=== PATIENT | female | born 1950 | race Caucasian/White ===

== ENCOUNTER 2023-01-21 11:51 | Outpatient (REF) | payer OTHER, SELFPAY ==
[2023-01-21 16:26] LABS: Alanine Aminotransferase 19 U/L (0-31); Albumin Level 4.9 g/dL (3.5-5.0); Alkaline Phosphatase 105 U/L (39-117); Amylase 64 U/L (28-100); Aspartate Amino Transferase 27 U/L (5-31); Bilirubin Direct 0.2 mg/dL (0.0-0.5); Bilirubin Total 0.4 mg/dL (0.0-1.0); Lipase 43 U/L (8-78); Total Protein 8.7 g/dL (6.5-8.0)
[2023-01-22 07:30] LABS: HBS Num1 0.11 mIU/mL (0-7.99); HBc Num1 0.09 S/CO (0.00-0.79); HBsAGNum1 0.35 S/CO (0.00-0.99); Hepatitis A Antibody IgM 0.19 Index (0-0.79); Hepatitis B Core Antibody Nonreactive (Nonreactive); Hepatitis B Surface Antigen Negative (Negative); ~HepC Num1 0.04 S/CO (0.00-0.79); ~Hepatitis A Antibody IgM Nonreactive (Nonreactive); ~Hepatitis B Surface Antibody NONREACTIVE (Nonreactive); ~Hepatitis C Antibody Nonreactive (Nonreactive)
== END 2023-01-21 11:52 | disposition home or self-care (01) ==
LOC: HO.HHCL 11:51
PROVIDERS: Visit Provider Registered Nurse
DX: R10.11 Right upper quadrant pain (principal)
CPT/HCPCS: 36415; 80076; 82150; 83690; 86704; 86706; 86709; 86803; 87340

== ENCOUNTER 2023-02-04 10:24 | Outpatient (REF) | payer OTHER, SELFPAY ==
--- NOTE | ~2023-02-04 | MM_ITS ---
EXAMINATION: BONE DENSITOMETRY CLINICAL INDICATION: Abnormal findings on diagnostic imaging of other parts of musculoskeletal system. COMPARISON: This is the patient's baseline examination. TECHNIQUE: Using a Zentric DXA System (software version: 13.1) manufactured by [employer], dual-energy x-ray absorptiometry was performed of the lumbar spine and left hip. The images are of good technical quality. Summary results are attached. FINDINGS: AP SPINE L1-L2 (excluding L3 and L4): The data of L1-L4 has been changed to exclude the L3 and L4 vertebral bodies, because degenerative sclerosis at these levels may cause overestimation of lumbar spine density. BMD 0.516 g/cm2, Z-score -3.1, T-score -5.4, osteoporosis. LEFT FEMUR, NECK: BMD 0.515 g/cm2, Z-score -1.6, T-score -3.8, osteoporosis. LEFT FEMUR, TOTAL: BMD 0.546 g/cm2, Z-score -1.6, T-score -3.7, osteoporosis. IDENTIFIED RISK FACTORS: History of adult fracture. Osteoporosis. Height loss. Low body weight. Low calcium intake. Menopause. HISTORY OF FRACTURE: Other. MEDICATIONS: Vitamin D. MM/XR DEXA axial skeleton IMPRESSION: 1. DIAGNOSIS: Osteoporosis based on the lowest T-score value of -5.4 in the lumbar spine applying World Health Organization criteria. 2. 10-YEAR FRACTURE RISK PREDICTION, FRAX: According to the guidelines, FRAX calculation should only be performed on patients in the osteopenia bone density category.?Therefore, FRAX was not performed on this patient.? 3. Treatment Recommendations: NOF guidelines recommend consideration for treatment in postmenopausal women and men age 50 and older presenting with the following: -A hip or vertebral (clinical or morphometric) fracture. -T-score less than or equal to -2.5 at the femoral neck or spine after appropriate evaluation to exclude secondary causes. -Low bone mass at the hip or spine and a 10-year fracture probability by FRAX of greater than or equal to 3% for hip fracture or greater than or equal to 20% for major osteoporotic fracture based on the [place] adapted WHO algorithm. 4. Other Recommendations: All treatment decisions require clinical judgment and consideration of individual patient factors, including patient preferences, comorbidities, previous drug use, risk factors not captured in the FRAX model (e.g. frailty, falls, vitamin D deficiency, increased bone turnover, interval significant decline in bone density) and possible under or overestimation of fracture risk by FRAX. Additional medical evaluation for secondary cause of low bone mineral density may be appropriate. FUTURE SCAN RECOMMENDATION: People with diagnosed cases of osteoporosis or at high risk for fracture should have regular bone mineral density tests. For patients eligible for Medicare, routine testing is allowed once every 2 years. The testing frequency can be increased to one year for patients who have rapidly progressing disease, those who are receiving or discontinuing medical therapy to restore bone mass, or have additional risk factors.
== END 2023-02-04 10:25 | disposition home or self-care (01) ==
LOC: HO.MAMMO 10:24
PROVIDERS: PCP Nurse Practitioner Family; Visit Provider Nurse Practitioner Family
DX: Z13.820 Encounter for screening for osteoporosis (principal); R93.7 Abnormal findings on diagnostic imaging of other parts of musculoskeletal system; Z78.0 Asymptomatic menopausal state
CPT/HCPCS: 77080

== ENCOUNTER 2023-02-19 08:21 | Outpatient (REF) | payer OTHER, SELFPAY ==
--- NOTE | ~2023-02-19 | US_ITS ---
EXAMINATION: US ABDOMEN COMPLETE CLINICAL INFORMATION: Right upper quadrant pain. COMPARISON: None available. TECHNIQUE: Real-time imaging of the abdominal viscera. FINDINGS: PANCREAS: Normal. ABDOMINAL AORTA: The proximal, mid, and distal segments are normal in caliber. INFERIOR VENA CAVA: Visualized portions are normal. LIVER: Lobulated appearance with linear echogenicity posterior lateral aspect of the right hepatic lobe. Alignment Parenchymal echogenicity is normal. No focal hepatic lesion. There is no intrahepatic biliary duct dilatation seen. GALLBLADDER: Gallbladder debris in decubitus position. The gallbladder is physiologically distended without evidence of stones, polyps, wall thickening or pericholecystic fluid. COMMON BILE DUCT: Normal in caliber measuring 0.53 cm in diameter. RIGHT KIDNEY: Normal. No hydronephrosis. No renal calculi or focal parenchymal lesions. The kidney measures 9.7 cm in maximum dimension. LEFT KIDNEY: Normal. No hydronephrosis. No renal calculi or focal parenchymal lesions. The kidney measures 9.5 cm in maximum dimension. SPLEEN: Normal. The spleen measures 8.3 cm in maximum dimension. FREE FLUID: None. US/US abdomen complete IMPRESSION: Lobulated right hepatic lobe contour with associated linear echogenicity. Consider cross-sectional imaging. Gallbladder debris without cholelithiasis.
== END 2023-02-19 08:22 | disposition home or self-care (01) ==
LOC: HO.US 08:21
PROVIDERS: PCP Nurse Practitioner Family; Visit Provider Registered Nurse
DX: R10.11 Right upper quadrant pain (principal)
CPT/HCPCS: 76700

== ENCOUNTER 2023-04-17 10:31 | Outpatient (REF) | payer OTHER, SELFPAY ==
[2023-04-17 11:20] LABS: MANUAL DIFF FLAG NO
[2023-04-17 11:52] LABS: Basophils Absolute Auto 0.1 X10*3/uL (0.0-0.2); Basophils Percent Auto 0.7 % (0-2); Eosinophils Absolute Auto 0.4 X10*3/uL (0.0-0.4); Eosinophils Percent Auto 5.5 % (0-4); Hematocrit 40.3 % (37.0-47.0); Hemoglobin 13.2 g/dl (12.0-16.0); Imm Gran Abs Auto 0.02 X10*3/uL (0.00-0.03); Imm Gran Pct Auto 0.3 % (0.0-0.4); Lymphocytes Absolute Auto 2.2 X10*3/uL (1.2-4.9); Lymphocytes Percent Auto 30.3 % (20-40); Mean Corpuscular HGB Conc 32.8 g/dl (31.0-35.0); Mean Corpuscular Volume 94.6 fL (80.0-98.0); Mean Platelet Volume 10.6 fL (9.4-12.3); Monocytes Absolute Auto 0.7 X10*3/uL (0.1-1.2); Neutrophils Absolute Auto 3.9 x10*3/uL (2.0-8.3); Neutrophils Percent Auto 54.2 % (45-73); Platelet Count 294 X10*3/uL (160-400); Red Blood Count 4.26 X10*6/uL (4.20-5.50); Red Cell Distribution Width 12.8 % (11.0-16.0); White Blood Count 7.2 X10*3/uL (4.8-10.8)
[2023-04-17 12:29] LABS: Alanine Aminotransferase 17 U/L (0-31); Albumin Level 4.4 g/dL (3.5-5.0); Alkaline Phosphatase 113 U/L (39-117); Anion Gap 15 (12-20); Aspartate Amino Transferase 23 U/L (5-31); Bilirubin Total 0.4 mg/dL (0.0-1.0); Blood Urea Nitrogen 11 mg/dL (9-16); Carbon Dioxide 28 mmol/L (22-29); Chloride 103 mmol/L (96-108); Cholesterol 209 mg/dL (<200); Estimated Glomerular Filt Rate > 60; Glucose Random 81 mg/dL (60-115); HDL Cholesterol 81 mg/dL (>40); LDL Cholesterol Calculated 110 mg/dL (<100); Potassium 3.6 mmol/L (3.3-5.1); Sodium 142 mmol/L (135-145); Total Protein 7.8 g/dL (6.5-8.0); Triglycerides 92 mg/dL (<150)
[2023-04-17 12:31] LABS: Alanine Aminotransferase 17 U/L (0-31); Albumin Level 4.5 g/dL (3.5-5.0); Alkaline Phosphatase 114 U/L (39-117); Aspartate Amino Transferase 23 U/L (5-31); Bilirubin Direct 0.2 mg/dL (0.0-0.5); Bilirubin Total 0.4 mg/dL (0.0-1.0); Total Protein 7.8 g/dL (6.5-8.0)
== END 2023-04-17 10:32 | disposition home or self-care (01) ==
LOC: HO.HHCL 10:31
PROVIDERS: Visit Provider Registered Nurse
DX: Z00.00 Encounter for general adult medical examination without abnormal findings (principal); R77.9 Abnormality of plasma protein, unspecified
CPT/HCPCS: 36415; 80053; 80061; 80076; 82248; 85025

== ENCOUNTER 2023-07-17 15:29 | Outpatient (REF) | payer OTHER, SELFPAY ==
[2023-07-17 17:06] LABS: Vitamin D 25-OH Total 69.3 ng/mL (>30)
== END 2023-07-17 15:30 | disposition home or self-care (01) ==
LOC: HO.HHCL 15:29
PROVIDERS: Visit Provider Nurse Practitioner Family
DX: E55.9 Vitamin D deficiency, unspecified (principal)
CPT/HCPCS: 36415; 82306

== ENCOUNTER 2023-08-31 08:49 | Outpatient (REF) | payer OTHER, SELFPAY ==
--- NOTE | ~2023-08-31 | US_ITS ---
EXAMINATION: US RETROPERITONEAL LIMITED (AORTA) CLINICAL INFORMATION: Remote history of smoking. Recent diagnosis of vascular disease. Hank Danlos. COMPARISON: Ultrasound abdomen complete 02/19/2023. TECHNIQUE: Aguero-scale, color Doppler and spectral Doppler evaluation of the abdominal aorta. FINDINGS: Atherosclerotic abdominal aorta. The measurements of the aorta in maximum AP and transverse dimensions respectively are as follows: Proximal: 2.0 x 2.0 cm. Mid: 1.6 x 1.9 cm. Distal: 1.6 x 1.8 cm. PSV: 65.4 cm/s. The measurements of the common iliac arteries in maximum AP and TRV dimensions are as follows: Right: AP: 1.0 cm. TRV: 0.9 cm. Left: AP: 1.0 cm. TRV: 1.0 cm. US/US aorta IMPRESSION: Negative for abdominal aortic aneurysm.
== END 2023-08-31 08:50 | disposition home or self-care (01) ==
LOC: HO.US 08:49
PROVIDERS: PCP Nurse Practitioner Family; Visit Provider Nurse Practitioner Family
DX: Q79.63 Vascular Ehlers-Danlos syndrome (principal)
CPT/HCPCS: 76775

== ENCOUNTER 2023-10-17 10:36 | Outpatient (REF) | payer OTHER, SELFPAY ==
[2023-10-17 10:51] LABS: MANUAL DIFF FLAG NO
[2023-10-17 11:15] LABS: Basophils Absolute Auto 0.1 X10*3/uL (0.0-0.2); Eosinophils Absolute Auto 0.4 X10*3/uL (0.0-0.4); Eosinophils Percent Auto 7.2 % (0-4); Hematocrit 38.1 % (37.0-47.0); Hemoglobin 13.2 g/dl (12.0-16.0); Imm Gran Abs Auto 0.01 X10*3/uL (0.00-0.03); Imm Gran Pct Auto 0.2 % (0.0-0.4); Lymphocytes Absolute Auto 1.5 X10*3/uL (1.2-4.9); Lymphocytes Percent Auto 30.4 % (20-40); Mean Corpuscular HGB Conc 34.6 g/dl (31.0-35.0); Mean Corpuscular Hemoglobin 32.7 pg (27.0-33.0); Mean Corpuscular Volume 94.3 fL (80.0-98.0); Mean Platelet Volume 10.5 fL (9.4-12.3); Monocytes Absolute Auto 0.5 X10*3/uL (0.1-1.2); Monocytes Percent Auto 9.5 % (2-11); Neutrophils Absolute Auto 2.6 x10*3/uL (2.0-8.3); Neutrophils Percent Auto 51.7 % (45-73); Platelet Count 234 X10*3/uL (160-400); Red Blood Count 4.04 X10*6/uL (4.20-5.50); Red Cell Distribution Width 12.7 % (11.0-16.0)
[2023-10-17 11:56] LABS: Alanine Aminotransferase 16 U/L (0-31); Albumin Level 4.5 g/dL (3.5-5.0); Alkaline Phosphatase 101 U/L (39-117); Amylase 80 U/L (28-100); Anion Gap 13 (12-20); Aspartate Amino Transferase 25 U/L (5-31); Bilirubin Total 0.4 mg/dL (0.0-1.0); Blood Urea Nitrogen 8 mg/dL (9-16); Calcium 10.4 mg/dL (8.4-10.2); Carbon Dioxide 28 mmol/L (22-29); Chloride 105 mmol/L (96-108); Estimated Glomerular Filt Rate > 60; Glucose Random 98 mg/dL (60-115); Lipase 46 U/L (8-78); Potassium 3.8 mmol/L (3.3-5.1); Sodium 142 mmol/L (135-145); Total Protein 7.6 g/dL (6.5-8.0)
== END 2023-10-17 10:37 | disposition home or self-care (01) ==
LOC: HO.LAB 10:36
PROVIDERS: Visit Provider Nurse Practitioner Family
DX: R10.10 Upper abdominal pain, unspecified (principal)
CPT/HCPCS: 36415; 80053; 82150; 83690; 85025

== ENCOUNTER 2023-10-21 10:38 | Outpatient (REF) | payer OTHER, SELFPAY ==
[2023-10-21 12:11] LABS: T4 Thyroxine 4.7 ug/dL (4.5-12.0)
[2023-10-21 12:22] LABS: Folate 10.3 ng/mL (> or = 4.0); Vitamin B12 585 pg/mL (200-900)
[2023-10-22 08:12] LABS: Triiodothyronine T3 Total 90 ng/dL (76-181)
== END 2023-10-21 10:39 | disposition home or self-care (01) ==
LOC: HO.LAB 10:38
PROVIDERS: PCP Nurse Practitioner Family; Visit Provider Nurse Practitioner Family
DX: E03.9 Hypothyroidism, unspecified (principal); E55.9 Vitamin D deficiency, unspecified
CPT/HCPCS: 36415; 82306; 82607; 82746; 84436; 84443; 84480

== ENCOUNTER 2024-05-24 09:29 | Outpatient (AMB) | payer OTHER, SELFPAY ==
--- NOTE | 2024-05-24 09:30 | A.OFFVIS_ITS ---
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 Extremely vague history and difficult to put this all together. She states that she has had issues for almost 5-6 decades. 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 Apparently also went to a [facility] in [place], but we do not have records. Plethora of symptoms. She may feel like her heart racing at times but it has been going on since she has been a teenager. Some days worse in the others. She also gets some random pains in the chest at different times again longstanding. PCP notes describes vertigo type symptoms but she states that she randomly feels dizzy and that can happen any time including while stationary. Apparently even things like POTS has been brought up but not worked up. Overall, nonspecific symptomatology of different types over a prolonged period. No documented coronary disease or myocardial infarction or cardiomyopathy. [facility] Medical History (Updated 05/24/24 @ 12:14 by Reji Barahona MD) Orthostatic hypotension Osteoporosis Scoliosis GERD (gastroesophageal reflux disease) Depressive disorder Asthma Family History (Updated 05/24/24 @ 09:42 by Linnette Kim CMA) Mother Ovarian cancer Father Alcoholism Brother Prostate cancer Maternal Grandfather Heart attack Social History (Updated 05/24/24 @ 09:43 by Linnette Kim CMA) Alcohol intake: former Patient Tobacco Use Status: Former Tobacco user Review of Systems Const Denies chills, Denies daytime sleepiness, Denies fatigue, Denies fever(s), Denies poor appetite, Denies snoring, Denies stops breathing during sleep, Denies weakness, Denies weight gain and Denies weight loss Eyes Denies loss of vision ENT Denies dizziness and Denies hearing loss Card Reports chest pain, Reports irregular heart rhythm, Denies claudication, Denies leg edema, Denies lightheadedness, Denies palpitations, Reports dyspnea on exertion and Denies orthopnea Resp Denies cough, Denies excessive phlegm production, Reports dyspnea on exertion, Denies snoring and Denies wheezing GI Denies abdominal pain, Denies hematochezia, Denies change in bowel habits, Denies nausea and Denies vomiting Denies urinary frequency and Denies dysuria Musc Denies arthralgias, Denies muscle weakness, Denies numbness and Denies other Skin/Breast Denies nail changes and Denies rash Neuro Denies Abnormal speech present, Denies dizziness, Denies loss of vision, Denies memory loss, Denies numbness and Denies weakness Psych Denies depression and Denies memory loss Endo Denies fatigue and Denies palpitations Arturo/Lymph Denies easy bruising Aller/Immun Denies wheezing Physical Exam Vital Signs: Last Vital Signs Pulse 68 05/24/24 09:38 BP 124/64 05/24/24 09:38 BMI result Body Mass Index 19.5 Const General: comfortable and no acute distress Orientation/consciousness: patient oriented x3 HEENT Other: Unremarkable Head: Yes normal to inspection Neck Neck: Yes normal visual inspection Chest Chest palpation & inspection: normal inspection of the chest Resp Auscultation: clear to auscultation bilaterally Cardio Palpation: normal PMI Heart sounds: S1 normal heart sound present, S2 normal heart sound present, no gallops, no murmurs and no rubs GI Palpation (GI): Soft to palpation Back/Spine/Pelvis Other: unremarkable Skin General skin exam: no rashes or lesions noted Neuro General: patient oriented x3 Speech: No Abnormal speech present Extrem General: Yes normal to inspection Psych Mental Status: mental status grossly normal Office Procedures EKG Details: EKG with underlying sinus rhythm at 68/Min; sinus arrhythmias; possible old septal infarct but more likely from body habitus; [place]. [id number], Complete Assessment & Plan Assessment & Plan (1) Abnormal EKG: Code(s): R94.31 - Abnormal electrocardiogram [ECG] [EKG] Category: Medical (2) Dizziness: Code(s): R42 - Dizziness and giddiness Category: Medical Plan EKG as above with possible septal infarct but could be very well related to body habitus. Vascular ultrasound shows no evidence of abdominal aortic aneurysm. We discussed about all her symptoms as mentioned above and overall doubt if there is any unifying cardiac diagnosis. With regard to the question of septal infarct on the EKG, we will get an echocardiogram for wall motion abnormality in the LAD territory and a stress test. With regard to the question of dizziness/presyncope/POTS?, we will get a tilt- table test. She can return for follow-up after these are completed. Orders: Orders CA stress test Today R07.2 - Precordial pain, R94.31 - Abnormal electrocardiogram [ECG] [EKG] ECG Tilt Table Test Today R42 - Dizziness and giddiness NM cardiolite stress test Today R07.2 - Precordial pain, R94.31 - Abnormal electrocardiogram [ECG] [EKG] CA echo transthoracic complete Today R94.31 - Abnormal electrocardiogram [ECG] [EKG] Coding Level of Care Code New Pt Level 4 (01927) Complex EM visit Add On G2211 Diagnoses Abnormal EKG R94.31 Dizziness R42 CPT Codes EKG - CPT: 86657-[id number], Complete ([id number])
[2024-05-24 09:38] VITALS: BP 124/64; PULSE 68; BMI 19.5
--- OUTSIDE RECORDS SUMMARY | 2024-05-24 10:34 | XMS_ITS | Clinical Summary ---
Author Organization [employer] Address [address] [place] [address] Care Team Providers Care Motor Vehicle Assembler Name Role Phone Kim Mcmullen NP Primary Care Provider [phone] Allergies Active Allergy Reactions Criticality Noted Date Comments Honey Bee Venom Hives 08/15/2009 Food Dermatitis,Diarrhea, Di zziness,Drowsiness,Hea dache,Hives,Insomnia,I tching,Nausea,Palpitat ions,Runny nose,Shortness of breath,Tinnitus,Wheezi ng High 04/22/2023 Penicillins Itching,Swelling,Hives Medium 05/12/2006 Pt recalls having swelling and itching at the site of injection. Yellow Jacket Venom Hives 08/15/2009 Medications EPINEPHrine (Epipen) 0.3 MG/0.3ML injection syringe INJECT DIRECTED NEEDED FOR ANAPHYLAXIS THEN CALL 911 2 Active levothyroxine (Synthroid, Levoxyl) 25 MCG tablet TAKE 1 TABLET BY MOUTH TWICE DAILY 3 Active liothyronine (Cytomel) 5 MCG tablet TAKE 1 TABLET BY MOUTH THREE TIMES DAILY 3 Active estradiol (Estrace) 0.1 MG/GM vaginal cream 4 Active Blood Pressure Monitoring (Blood Pressure Cuff) miscIndications: Dysautonomia (CMS/HCC),Orthos tatic hypotension 1 kit Once per day. 1 each 4 Active Active Problems Problem Noted Date Diagnosed Date TMJ (temporomandibular joint disorder) 5 Assessment & Plan (05/14/2024 1:41 PM EST): Pt in specialty care for this, Requesting referral to PT Hearing difficulty of both ears 01/19/2024 Assessment & Plan (02/07/2024 11:46 AM EST): Referral to audiology Dysautonomia 12/18/2023 Assessment & Plan (02/07/2024 11:45 AM EST): Continue increased salt intake with adequate hydration Monitor bp Compression stockings ordered Assessment & Plan (01/17/2024 11:31 AM EDT): Pt with hank danlos, and associated vertiginous symptoms, will refer to preferred cardiology team, encouraged increase salt, hydration and compression stockings Orthostatic hypotension 12/18/2023 Metatarsalgia of both feet 12/18/2023 Absence of bladder continence 12/18/2023 Dizziness 12/17/2023 Combined hyperlipidemia 12/17/2023 Atherosclerosis 12/17/2023 Assessment & Plan (12/17/2023 3:03 PM EDT): Ultrasound demonstrated atherosclerosis, reviewed statin as therapeutic options, pt contemplative as cholesterol is quite stable Hank-Danlos, vascular type 07/31/2023 Assessment & Plan (12/17/2023 2:59 PM EDT): Reviewed treatment options of increasing oral salt of prescribed medications to increase bp, encouraged compression stocking Assessment & Plan (08/02/2023 9:22 PM EDT): Encouraged pt to discuss with neurologist, ordered AAA screening Pain of upper abdomen 07/31/2023 Assessment & Plan (08/02/2023 9:23 PM EDT): Episode of severe pain which has since resolved, reviewed limitations to work up when asymptomatic, has upcoming GI appointment, will start with blood work Previous work up reviewed Encounter for screening for malignant neoplasm o f colon 07/31/2023 Assessment & Plan (08/02/2023 9:21 PM EDT): Ifobt ordered Urticaria 04/27/2023 Assessment & Plan (04/27/2023 6:51 PM EST): In care with allergy, requesting derm referral denies acute or evolving lesions Allergic rhinitis 11/21/2022 Overview (11/21/2022): dust, mites, pollen. all seasons, worse in fall and sometimes summer Insomnia 11/21/2022 Overview (11/21/2022): Last Assessment & Plan: Discussed role of melatonin in maintaining circadian rhythm, recommend taking 2- 3 hours prior to bedtime. Urethral caruncle 11/27/2020 Equinus deformity of both feet 10/02/2020 Incontinence of feces with fecal urgency 021 Overview (11/21/2022): Last Assessment & Plan: Agree that pelvic floor PT is a reasonable intervention to try, especially in light of unrepaired obstetric laceration which could have left her with some very weak pelvic musculature. Interstitial cystitis (chronic) without hematuri a 02/13/2020 Juvenile idiopathic scoliosis of thoracolumbar r egion 12/15/2019 Dorsalgia of lumbosacral region 10/03/2019 Trochanteric bursitis of left hip 03/05/2011 Overview (11/21/2022): 02/2011- refer ortho, given steroid injection to left hip Hearing loss 12/10/2010 Assessment & Plan (04/27/2023 6:52 PM EST): Reports chronic issue, hx was advised would benefit from hearing aides, requesting referral Toe pain, right 06/18/2010 Overview (04/06/2024): - refer podiatry: hammertoe/exostosis right 2nd digit, tibial neuritis, right foot Vasovagal near-syncope 04/25/2008 Overview (11/21/2022): Both ears since eage 30s Frozen shoulder 04/25/2008 Overview (11/21/2022): 09/2006- Left sided, completed PT Osteoporosis 06/23/2006 Overview (11/21/2022): Eval by rheumatology 05/28-osteoporosis, BMD improved compared to 2006 Eval by rheumatology 05/28-osteoporosis, BMD improved compared to 2006 Asthma 05/19/2006 Overview (11/21/2022): diet-controlled. URIs are triggers but she prefers no inhaler b/c of palpitations Last Assessment & Plan: Offered levalbuterol, which is generally better-tolerated than albuterol with regards to palpitations. As this often requires a PA I suggest getting a script now even though she does not need it when she is well. She declines. She is also due for pneumovax and defers this because she has big gardening plans and doesn't want to have a sore arm. Depressive disorder, not elsewhere classified Overview (11/21/2022): Controlled with talk therapy and exercise - walking twice daily for 40 mind at at time. No SI/HI. Gastroesophageal reflux disease 05/19/2006 Overview (11/21/2022): 02/02/[address] Ashley 04/28/[address] Ashley-Plan to moniter symptoms and watch diet Pt declines dilatation or esophageal study at this time Irritable bowel syndrome 05/19/2006 Overview (11/21/2022): Colonoscopy done 07/2009- stable, controlled w/ healthy diet, vegan. Colonoscopy done 2019 Follows a healthy diet, vegan. Mitral valve disease 05/19/2006 Overview (11/21/2022): Echocardiogram done 05/05/05 showed mild MR and TR Pt informed of need for antibiotic prophylaxsis Echocardiogram done 05/05/05 showed mild MR and TR Pt informed of need for antibiotic prophylaxsis Anxiety and depression 05/19/2006 Overview (04/06/2024): Controlled with talk therapy and exercise - walking twice daily for 40 mind at at time. No SI/HI. Resolved Problems Problem Noted Date Diagnosed Date Resolved Date Toe pain, right 06/18/2010 01/21/2023 Overview (11/21/2022): - refer podiatry: hammertoe/exostosis right 2nd digit, tibial neuritis, right foot Screening for malignant neoplasm of cervix 08/15/2009 01/21/2023 Overview (11/21/2022): 07/2009- hpv wnl, pap unsatisfactory evluatino b/c too few squamous cells; repeat in 1 yr Encounters Date Type Department Care Team Description 04/18/2024 3:45 PM EST Office Visit [facility] [address] [place] [address] Kim Mcmullen NP TMJ (temporomandibular joint disorder) (Primary Dx) 04/18/2024 Travel 04/14/2024 12:00 PM EST Office Visit [facility] [address] [place] [address] Tita Owens LLD Encounter for dental examination (Primary Dx) 04/06/2024 Telephone [facility] [address] [place] [address] Joanna Oneill MA Chart Prep 03/02/2024 Travel 03/02/2024 Telephone [facility] [address] [place] [address] Kim Mcmullen NP Appointment Request 03/02/2024 Telephone [facility] [address] [place] [address] Kim Mcmullen NP Nurse Triage from Last 3 Months Immunizations Name Administration Dates Next Due Pfizer Covid-19 Vaccine 12+ 04/07/2020, 1 Pneumococcal Conjugate PCV 13 11/17/2019 TD (adult), 2 Lf tetanus tox oid, preservative free, adsorbed 11/17/2019 Td (adult), unspecified 03/16/2010 Family History Medical History Relation Name Comments Prostate cancer Brother Heart attack Maternal Grandfather Ovarian cancer Mother Stroke Paternal Grandfather Relation Name Status Comments Brother Maternal Grandfather Mother Paternal Grandfather Social History Tobacco Use Types Packs/Day Years Used Date Smoking Tobacco: Former Cigarettes 1 20 Passive Smoke Exposure: Never Smokeless Tobacco: Never Tobacco Cessation:Counseling Given: Not Answered Alcohol Use Standard Drinks/Week Comments Not Currently 0 (1 standard drink = 0.6 oz pur e alcohol) 40 years Depression Answer Date Recorded Patient Health Questionnaire-9 Score 0 12/17/2022 Housing Stability Answer Date Recorded What is your housing situation today? I have eddie leyva 12/18/[address] you li ve. Do you have problems with any of the following? None of the above 12/18/2023 Food Insecurity Answer Date Recorded Within the past 12 months, y ou worried that your food would run out before you got money to buy more: Never True 12/18/2023 Within the past 12 months,th e food you bought just didn't last and you didn't have enough money to get more: Never True Transportation Answer Date Recorded In the past 12 months, has l ack of transportation kept you from medical appts, meetings, work or from getting things needed for daily living? No 12/18/2023 Utilities Answer Date Recorded In the past 12 months, has t he electric, gas, oil or water company threatened to shut off services in your home? No 12/18/2023 Depression Answer Date Recorded Patient Health Questionnaire-2 Score 0 12/17/2022 Internet Access Answer Date Recorded Internet Access Q1 Yes 12/18/2023 Internet Access Q2 Not on file 12/18/2023 Comments Unknown Sex and Gender Information Value Date Recorded Sex Assigned at Female 11/14/2022 9:44 AM EDT Legal Sex Female 8:38 PM EST Gender Identity Female 01/31/2022 8:38 PM EST Sexual Orientation Choose not to disclose 2022 9:44 AM EDT Last Filed Vital Signs Vital Sign Reading Time Taken Comments Blood Pressure 119/74 04/18/2024 3:47 PM EST Pulse 73 04/18/2024 3:47 PM EST Temperature 35.9 ??C (96.7 ??F) 04/18/2024 3:47 PM ES T Respiratory Rate 16 04/18/2024 3:47 PM EST Oxygen Saturation 97% 01/19/2024 3:26 PM EDT Inhaled Oxygen Concentration - - Weight 46.1 kg (101 lb 9.6 oz) 04/18/2024 3:47 P M EST Height 154.9 cm (5' 1 ) 04/18/2024 3:47 PM EST Body Mass Index 19.2 04/18/2024 3:47 PM EST Plan of Treatment Upcoming Encounters Date Type Department Care Team (Late st Contact Info) Description 10/18/2024 11:00 AM EDT Office Visit [place] [facility] Dental [address] [place] [address] Tita Owens LLD [address] [place] [address] Health Maintenance Due Date Last Done Comments CT Colonography 1950 Colonoscopy 1950 Colorectal Cancer Screening 1950 FIT DNA/Cologuard 1950 FIT 1950 FOBT 1950 Sigmoidoscopy 1950 Mammogram 1990 Zoster Vaccines (1 of 2) 2000 RSV Patients and Patients Aged 60 years or older (1 - Risk 60-74 years 1-dose series) 2010 DTaP/Tdap/Td Vaccines (1 - Tdap) 11/18/2019 11/17/2019, 03/16/2010 Pneumococcal Vaccine: 50+ Years (2 of 2 - PPSV23) 01/12/2020 11/17/2019 COVID-19 Vaccine (4 - season) 2023 05/05/2020, 04/07/2020, 03/23/2020 Influenza Vaccine (#1) 2023 Depression Screening 12/18/2023 12/17/2022, 12/18/19 Dental Prophylaxis 01/10/2024 07/10/2023, 0 11/27/2022, 03/06/2021, Additional history exists Dental X-Ray: Full Mouth 02/01/2024 021, 11/22/2020, 06/26/2017 Dental Oral Exam 10/13/2024 04/14/2024, , 11/27/2022, Additional history exists Alcohol/Substance Use Screening 12/17/2024 12/18/2023 SDOH Screening 12/17/2024 12/18/2023 Dental X-Ray: Bitewings 04/15/2025 04/14/19, 11/27/2022, 11/22/2020, Additional history exists Tobacco Screening 04/18/2025 04/18/2024 Hepatitis C Screening Completed 01/21/2023 HIB Vaccines Aged Out No longer eligi ble based on patient's age to complete this topic HPV Vaccines Aged Out No longer eligi ble based on patient's age to complete this topic Hepatitis A Vaccines Aged Out No long er eligible based on patient's age to complete this topic Hepatitis B Vaccines Aged Out No long er eligible based on patient's age to complete this topic IPV Vaccines Aged Out No longer eligi ble based on patient's age to complete this topic Meningococcal Vaccine Aged Out No gildardo imer eligible based on patient's age to complete this topic RSV under 20 months Aged Out No longe r eligible based on patient's age to complete this topic Rotavirus Vaccines Aged Out No longer eligible based on patient's age to complete this topic Procedures Procedure Name Priority Date/Time Associated Diagnosis Comments CASE PRESENTATION, DETAILED AND EXTENSIVE TREATMENT PLANNING Routine 04/14/2024 12:00 PM EST ORAL HYGIENE INSTRUCTIONS Routine 04/14/2024 12:00 PM EST BITEWINGS - 4 RADIOGRAPHIC IMAGES Routine 04/14/2024 12:00 PM EST PERIODIC ORAL EVALUATION - ESTABLISHED PATIENT Routine 04/14/2024 12:00 PM EST Full PROPHYLAXIS - ADULT Routine 07/10/2023 3:00 PM EDT HEPATITIS PANEL, GENERAL Routine 01/21/2023 11:54 AM EDT Right upper quadrant pain PANORAMIC RADIOGRAPHIC IMAGE Routine 01/30/2021 12:00 AM EST from Last 3 Months or Most Recently Relevant to Health Maintenance Results * Hepatitis A,B,C Profile (01/21/2023 11:54 AM EDT) Hepatitis A IgM Nonreactive Nonreactive [facility] Comment:IgM antibodies to MCLAIN V not detected; does not exclude earlyacute or recovered HAV infection. ~Hepatitis B Surface Antibody NONREACTIVE Nonreactive [facility] Comment:Nonreactive: < 8.00 mIU/mL Hepatitis B Core Antibody Nonreactive Nonreactive [facility] Hepatitis C Antibody Nonreactive Nonreactive [facility] Comment:Antibodies to HCV no t detected; does not exclude early acuteHCV infection. Hepatitis B Surface Ag Negative Negative [facility] Blood Venous blood specimen / Unknown 01/21/2023 11:54 AM EDT 01/21/2023 3:52 PM EDT us Di Archuleta STAND IN LAB BLOOD ORDERABLES Final Res ult [facility] [address] [place] [address] [phone] from Last 3 Months or Most Recently Relevant to Health Maintenance Insurance [facility] Member Subscriber Plan / Payer (Ef fective 2018-Present) Name:Stephie Lombardo Relation to Subscriber:Self Name:Stephie Lombardo Payer ID:Not on file Group ID:[id number] Type:Not on file Address: [address] [facility] Care Teams Motor Vehicle Assembler Relationship Specialty Start Date End Date Kim Mcmullen NP [address] [place] [address] PCP - General Family Medicine 10/19/23
--- OUTSIDE RECORDS SUMMARY | 2024-05-24 10:34 | XMS_ITS | Clinical Summary ---
[facility] Organization [facility] Address [address] [place] [address] Care Team Providers Care Lehr Attendant Name Role Phone Aiden Preston MD Primary Care Provider Surgical History Surgery Date Site/Laterality Comments OTHER SURGICAL HISTORY PROCEDURE: DENIES PREVIOUS SURGERY Family History Medical History Relation Name Comments Other: bcc Sister Relation Name Status Comments Sister Social History Tobacco Use Types Packs/Day Years Used Date Smoking Tobacco: Former Smokeless Tobacco: Never Comments Unknown Sex and Gender Information Value Date Recorded Sex Assigned at Not on file Legal Sex Female 10:01 PM EST Gender Identity Not on file Sexual Orientation Not on file Obstetrics History Plan of Treatment Upcoming Encounters Date Type Department Care Team (Late st Contact Info) Description 07/19/2024 1:45 PM EDT Appointment [facility] Xray [address] [place] [address] Health Maintenance Due Date Last Done Comments Breast Cancer Screening 1950 DTaP,Tdap,and Td Vaccines (1 - Tdap) 1969 Pneumococcal Vaccine: 50+ Ye ars (1 of 1 - PCV) 2000 Zoster Vaccines (1 of 2) 2000 Colorectal Cancer Screening: Colonoscopy 02/22/2022 Depression Screening 02/22/2022 Falls Risk Assessment 02/22/2022 Hepatitis C Screening 02/22/2022 Osteoporosis Screening (Bone Density Screening) 02/22/2022 Social Influencers of Health Screening 02/22/2022 COVID-19 Vaccine ( - 2023-2 5 season) 2023 Influenza Vaccine (#1) 2023 RSV Immunization Patients 60 + Years Old (1 - 1-dose 75+ series) 2025 HIB Vaccines Aged Out No longer eligi [...] on patient's age to complete this topic MMR Vaccines Aged Out No longer eligi ble based on patient's age to complete this topic Meningococcal ACWY Vaccine Aged Out N o longer eligible based on patient's age to complete this topic Meningococcal B Vacine Aged Out No lo nger eligible based on patient's age to complete this topic RSV Immunization Patients Un job 20 months Aged Out No longer eligible b ased on patient's age to complete this topic Varicella Vaccines Aged Out No longer eligible based on patient's age to complete this topic Care Teams Lehr Attendant Relationship Specialty Start Date End Date Aiden Preston MD [address] [place] PCP - General Internal Medicine 02/01/19
--- OUTSIDE RECORDS SUMMARY | 2024-05-24 10:35 | XMS_ITS | Encounter Summary ---
Author Organization [employer] Address [address] [facility] [address] [place] [address] Care Team Providers Care Sheet Metal Foreman Name Role Phone Tami ArmendarizP Primary Care Provider [phone] Kim Mcmullen NP Primary Care Provider [phone] Encounter Details Date Type Department Care Team (Late st Contact Info) Description 12/17/2022 Abstract [facility] MEDICINE [address] [place] [address] Tami Armendariz FNP [address] [place] [address] Social History Tobacco Use Types Packs/Day Years Used Date Smoking Tobacco: Former Cigarettes 1 20 Passive Smoke Exposure: Never Smokeless Tobacco: Never Alcohol Use Standard Drinks/Week Comments Not Currently 0 (1 standard drink = 0.6 oz pur e alcohol) 40 years Depression Answer Date Recorded Patient Health Questionnaire-9 Score 0 12/17/2022 Depression Answer Date Recorded Patient Health Questionnaire-2 Score 0 12/17/2022 Comments Unknown Sex and Gender Information Value Date Recorded Sex Assigned at Female 11/14/2022 9:44 AM EDT Legal Sex Female 8:38 PM EST Gender Identity Female 01/31/2022 8:38 PM EST Sexual Orientation Choose not to disclose 2022 9:44 AM EDT documented as of this encounter Plan of Treatment Upcoming Encounters Date Type Department Care Team (Late st Contact Info) Description 10/18/2024 11:00 AM EDT Office Visit [facility] Dental [address] [place] [address] Tita Owens LLD [address] [place] [address] documented as of this encounter Visit Diagnoses Not on filedocumented in this encounter Additional Health Concerns Assessment Noted Time PHQ-9 Depression Total Score: 0 12/18/19 23 2:24 PM EDT documented as of this encounter Care Teams Sheet Metal Foreman Relationship Specialty Start Date End Date Tami Armendariz FNP [address] [place] [address] PCP - General Family Medicine 12/11/22 10/18/23 Kim Mcmullen NP [address] [place] [address] PCP - General Family Medicine 10/19/23 documented as of this encounter
--- OUTSIDE RECORDS SUMMARY | 2024-05-24 10:35 | XMS_ITS | Encounter Summary ---
Author Organization [employer] Address [address] [facility] [address] [place] [address] Care Team Providers Care Process Coordinator Name Role Phone Tami Armendariz Primary Care Provider [phone] Kim Mcmullen NP Primary Care Provider [phone] Encounter Details Date Type Department Care Team (Latest Contact Info) Description 11/22/2020 Abstract [facility], Provider, DDS Social History Tobacco Use Types Packs/Day Years Used Date Smoking Tobacco: Never Assessed Comments Unknown Sex and Gender Information Value [...] Description 10/18/2024 11:00 AM EDT Office Visit [place] [facility] Dental [address] [place] [address] Tita Owens LLD [address] [place] [address] documented as of this encounter Visit Diagnoses Not on filedocumented in this encounter Care Teams Process Coordinator Relationship Specialty Start Date End Date Tami Armendariz FNP [address] [place] [address] PCP - General Family Medicine 12/11/22 10/18/23 Kim Mcmullen NP [address] [place] [address] PCP - General Family Medicine 10/19/23 documented as of this encounter
--- OUTSIDE RECORDS SUMMARY | 2024-05-24 10:35 | XMS_ITS | Encounter Summary ---
Author Organization [employer] Address [address] [place] [address] Care Team Providers Care Tarper Name Role Phone Tami ArmendarizP Primary Care Provider [phone] Kim Mcmullen NP Primary Care Provider [phone] Reason for Visit * Reason Onset Date Comments Referral 04/21/2023 Encounter Details Date Type Department Care Team ([facility] st Contact Info) Description 04/21/2023 Telephone [facility] MEDICINE [address] [place], [place] [phone] Tami Armendariz FNP [address] [place], [place] [phone] Referral Social History Tobacco Use Types Packs/Day Years [...] housing situation today? I have eddie leyva 12/30/[address] you li ve. Do you have problems with any of the following? Mold 12/30/2022 Food Insecurity Answer Date Recorded Within the past 12 months, y ou worried that your food would run out before you got money to buy more: Never True 01/19/2023 Within the past 12 months,th e food you bought just didn't last and you didn't have enough money to get more: Never True Transportation Answer Date Recorded In the past 12 months, has l ack of transportation kept you from medical appts, meetings, work or from getting things needed for daily living? No 01/19/2023 Utilities Answer Date Recorded In the past 12 months, has t he electric, gas, oil or water company threatened to shut off services in your home? No 01/19/2023 Depression Answer Date Recorded Patient Health Questionnaire-2 Score 0 12/17/2022 Comments Unknown Sex and Gender Information Value Date Recorded Sex Assigned at Female 11/14/2022 9:44 AM EDT Legal Sex Female 8:38 PM EST Gender Identity Female 01/31/2022 8:38 PM EST Sexual Orientation Choose not to disclose 2022 9:44 AM EDT documented as of this encounter Miscellaneous Notes * Telephone Encounter - Nicko Sexton - 04/21/2023 11:04 AM EST Tc from [facility] calling to speak with the [place] for the PCP to obtain aInsurance referral functional tester typewriters did attempt to transfer to direct line but was advised by the insurance claims specialist needs to get referral by the [place] documented in this encounter Plan of Treatment Upcoming Encounters Date Type Department Care Team (Late st Contact Info) Description 10/18/2024 11:00 AM EDT Office Visit [facility] Dental [address] [place] [address] Tita Owens LLD [address] [place] [address] documented as of this encounter Visit Diagnoses Not on filedocumented in this encounter Additional Health Concerns Assessment Noted Time PHQ-9 Depression Total Score: 0 12/18/19 23 2:24 PM EDT documented as of this encounter Care Teams Tarper Relationship Specialty Start Date End Date Tami Armendariz FNP [address] [place] [address] PCP - General Family Medicine 12/11/22 10/18/23 Kim Mcmullen NP [address] [place] [address] PCP - General Family Medicine 10/19/23 documented as of this encounter
--- OUTSIDE RECORDS SUMMARY | 2024-05-24 10:35 | XMS_ITS | Encounter Summary ---
Author Organization [employer] Address [address] [facility] [address] [place] [address] Care Team Providers Care Analysis Intern Name Role Phone Tami ArmendarizP Primary Care Provider [phone] Kim Mcmullen SURGICAL SERVICES MANAGER Primary Care Provider [phone] Reason for Visit * Reason Onset Date Comments New Patient 11/05/2022 Encounter Details Date Type Department Care Team (Late st Contact Info) Description 11/05/2022 Telephone [facility] [address] [place], [place] [phone] Tami Armendairz FNP [address] [place], [place] [phone] New Patient Social History Tobacco Use Types Packs/Day Years [...] encounter Miscellaneous Notes * Telephone Encounter - Candie Aguirre - 11/05/2022 11:00 AM EDT PAR Candie Conde called pt to Offer SURGICAL SERVICES MANAGER appt. Pt demographics and insurance information were verified. 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 Pt is currently taking medication: Thyroid Medication and a list Anti/ Supplements ( advised to please bring to appt date ) Pt given SURGICAL SERVICES MANAGER appt with Dr. Tami Armendariz on 12/17/2022 @ 2:15 pm. Pt will be sent appt reminder card and medical release form and agrees to complete and to return to medical records prior to SURGICAL SERVICES MANAGER appt. documented in this encounter Plan of Treatment Upcoming Encounters Date Type Department Care Team (Late st Contact Info) Description 10/18/2024 11:00 AM EDT Office Visit Jessi [facility] [address] [place] [address] Tita Owens LLD [address] [place] [address] documented as of this encounter Visit Diagnoses Not on filedocumented in this encounter Care Teams Analysis Intern Relationship Specialty Start Date End Date Tami Armendariz FNP [address] [place] [address] PCP - General Family Medicine 12/11/22 10/18/23 Kim Mcmullen NP [address] [place] [address] PCP - General Family Medicine 10/19/23 documented as of this encounter
--- OUTSIDE RECORDS SUMMARY | 2024-05-24 10:35 | XMS_ITS | Encounter Summary ---
Author Organization [employer] Address [address] [facility] [address] [place] [address] Care Team Providers Care Billet Shearer Name Role Phone Tami ArmendarizP Primary Care Provider [phone] Kim Mcmullen DIVISION ORDER ANALYST Primary Care Provider [phone] Encounter Details Date Type Department Care Team (Late st Contact Info) Description 02/11/2023 Abstract [facility] [address] [place] [address] Christina Murry Social History Tobacco Use Types Packs/Day Years [...] 10/18/2024 11:00 AM EDT Office Visit Jessi [facility] [address] [place] [address] Tita Owens LLD [address] [place] [address] documented as of this encounter Procedures Procedure Name Priority Date/Time Associated Diagnosis Comments PAP/HPV Routine 01/28/2023 documented in this encounter Results * Pap Smear (01/28/2023) Pap Negative for intraephithelial lesion or malignancy Negative for intraephithelial lesion or malignancy, Other HPV Undetected Undetected, Indeterminate, Quantitative, Not Detected Historical Provider HEALTH MAINTENANCE Final Result documented in this encounter Visit Diagnoses Not on filedocumented in this encounter Additional Health Concerns Assessment Noted Time PHQ-9 Depression Total Score: 0 12/18/19 23 2:24 PM EDT documented as of this encounter Care Teams Billet Shearer Relationship Specialty Start Date End Date Tami Armendariz FNP [address] [place], [place] [phone] PCP - General Family Medicine 12/11/22 10/18/23 iKm Mcmullen NP [address] [place], [place] [phone] PCP - General Family Medicine 10/19/23 documented as of this encounter
--- OUTSIDE RECORDS SUMMARY | 2024-05-24 10:35 | XMS_ITS | Data Portability ---
Author Organization [employer] Address [address] [place] [address] Care Team Providers Care Oven Operator Automatic Name Role Phone HIM [facility] OTHER [facility] OTHER Assessment Encounter Date Assessment Date Assessment LastModified by Organization Details LastModified Time 03/02/2024 03/02/2024 I provided real -time medical direction via phone for this encounter and was available for additional phone-based assistance as needed. I have reviewed and agree with the Assessment and Plan as documented by the Broiler Supervisor. Patient given the opportunity to ask questions. 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 She calls this service as she is going out of town on Thursday to [facility] and wants to know if it is safe to travel. She called her PCP's office who was unable to see her and referred her to this service. Unfortunately due to technical issues the pictures of the lesion were unable to be uploaded. The patient denies trauma. She noticed a small pink round gambell on the anterior surface of her correa that is essentially nontender to palpation over the past 24 hours. She denies any bites from bugs. Again denies trauma. It is not pruritic. It is not painful necessarily. She denies having this anywhere else on her body. Per cutting inspector on the scene, vital signs are stable and patient is afebrile. Well-circumscribe d pink small lump on the anterior surface of the correa. There is no tenderness to palpation and it does not appear to be a boil. There is no open area. There is no surrounding erythema. Impression: May represent a hematoma although she denies trauma. Her main concern is that it is a vascular representation of EDS. My concern for that is low however her main question is it safe to travel out of the country with this lesion. Was unable to advise on the specific question. It does not appear to be an infectious etiology. It does not appear to be fungal in nature. May be too early in the course to diagnose. Suggested that she call the PCP back for further guidance. Allergies: Reviewed PCP f/u: We discussed the diagnostic uncertainty of home visits and the risk associated with this. In this case, the patient and I felt this to be an acceptable and reasonable amount of risk given the benefit of avoiding an ED visit. We discussed the need to seek care urgently/emergent ly in the setting of any new or worsening serious symptoms, particularly fever chills [email or web address] Not available 03/02/2024 15:51:02 Plan of Treatment Reminders Order Date Submit Date Provider Last Modified By Organization Details Last Modified Time Details Appointments None recorded. Lab urinalysis, dipstick [address], [address] [place] [address], [id number], 18:43:31 culture, urine 2022 023 [facility], [address] [place] [address], [place], [address], 17:33:19 Referral None recorded. Procedures None recorded. Surgeries None recorded. Imaging None recorded. Medication Orders ondansetron 4 mg disintegrat ing tablet 2022 023 [id number], [address] [place] [address], [id number], 18:43:40 ondansetron 4 mg disintegrat ing tablet [address] [employer] [id number], [address] [place] [address], [id number], 18:43:31 Patient TargetsNo targets recorded. Patient InstructionsNo instructions recorded. Reason for Referral None Reported. Results Created Date Observation Date Name Description Value Unit Range Abnormal Flag Note LastModifiedBy Organization Detail LastModifiedTime 10/29/19 23 10/30/2022 CULTU RE, URINE , ROUTI NE culture, urine, routine SEE NOTE CULTU RE, URINE , ROUTI NE Micro Numbe r: [id number] Test Statu s: Final Speci men Sourc e: Not given Speci men Quali ty: Adequ ate Resul t: No Growt h Not Available [facility] [address], [place], [address], 10/30/2022 17:33:19 01/18/2001/17/2023 urina lysis , dipst ick Leukocytes neg Not Available Main - [facility] [address] [place] [address], [phone], 01/17/2023 18:43:12 01/18/2001/17/2023 urina lysis , dipst ick Nitrite negati ve Not Available Main - Inst ed [address] [place] [address], [phone], 01/17/2023 18:43:12 01/18/2001/17/2023 urina lysis , dipst ick Protein + Not Available Main - Ins [address], [address], 01/17/2023 18:43:12 01/18/2001/17/2023 urina lysis , dipst ick Blood neg Not Available Main - Ins [address], [address], 01/17/2023 18:43:12 01/18/2001/17/2023 urina lysis , dipst ick Ketone + Not Available Main - Ins [address], [address], 01/17/2023 18:43:12 01/18/2001/17/2023 urina lysis , dipst ick Glucose neg Not Available Main - Ins [address], [address], 01/17/2023 18:43:12 Result Notes None recorded. Medical Equipment None Reported. Allergies Allergen ID Allergen Name Allergen Category Reaction Reaction Severity Criticality Documentation Date Start Date Code Code System Note Provider Name and Address Organization Details Recorded Time 8132 Product containin g penicilli n (product) medicatio n Not available Not available Not available 01/19/2024 35216 8001 SNOMED Not Available [facility] 4 03:42:11 Medications Name Sig Start Date Stop Date Status Note LastModified by Organization Details LastModified Time naltrexone 1mg capsule (dye-free) TAKE 1 CAPSULE BY MOUTH AT BEDTIME FOR DAYS 1-30 THEN 2 CAPSULES AT BEDTIME FOR DAYS 31-60 THEN 3 CAPSULES AT BEDTIME FOR DAYS 61-90 active Not Available Not Available N ot Available cetirizine 10 mg tablet TAKE 1 TABLET BY MOUTH DAILY NEEDED FOR ALLERGIES active Not Available Not Available No t Available liothyronine 5 mcg tablet TAKE 1 TABLET BY MOUTH THREE TIMES DAILY active Not Available Not Available Not Available levothyroxin e 25 mcg tablet TAKE 1 TABLET BY MOUTH TWICE DAILY active Not Available Not Available No t Available epinephrine 0.3 mg/0.3 mL injection, auto-injecto r INJECT DIRECTED NEEDED FOR ANAPHYLAXIS THEN CALL 911 active Not Available Not Available No t Available estradiol 0.01% (0.1 mg/gram) vaginal cream INSERT 0.5 GRAM VAGINALLY EVERY NIGHT AT BEDTIME FOR 2 WEEKS THEN USE VAGINALLY 2 TIMES A WEEK active Not Available Not Available No t Available hydroxyzine HCl 10 mg tablet TAKE 1 TO 2 TABLETS BY MOUTH EVERY 6 HOURS NEEDED FOR INTERSTITIA L CYSTITIS PAIN FOR 30 DAYS. CAN BE SEDATING active Not Available Not Available Not Available ondansetron 4 mg disintegrati ng tablet DISSOLVE 1 TABLET UNDER THE TONGUE EVERY 8 HOURS NEEDED FOR NAUSEA active Not Available Not Available No t Available Eye Itch Relief 0.025 % (0.035 %) drops active Not Available Not Available Not Available Paxlovid 300 mg (150 mg x 2)-100 mg tablets in a dose pack TK 2 NIRMATRELVI R TS AND 1 RITONAVIR T TOGETHER PO BID FOR 5 DAYS TWICE DAILY FOR DAYS active Not Available Not Available No t Available Vitals Date Recorded Body height Oxygen saturation Oxygen saturation in Arterial blood by Pulse oximetry Body temperature Respiratory rate Heart rate Body weight Systolic blood pressure Diastolic blood pressure Provider Name and Address Organization Details Last Updated DateTime 3 154.94 cm 100 % 100 % 98.1 [degF] 16 /min 74 /min 09157.1 6 g 137 mm[Hg] 83 mm[Hg] Not Available [facility] - production 3 11:58:27 Date Recorded Oxygen saturation Oxygen saturation in Arterial blood by Pulse oximetry Heart rate Respiratory rate Body temperature Systolic blood pressure Diastolic blood pressure Provider Name and Address Organization Details Last Updated DateTime 3 99 % 99 % 68 /min 16 /min 98 [degF] 110 mm[Hg] 73 mm[Hg] Not Available [facility] 3 18:36:33 Date Recorded Body weight Oxygen saturation Oxygen saturation in Arterial blood by Pulse oximetry Body temperature Respiratory rate Heart rate Body height Systolic blood pressure Diastolic blood pressure Provider Name and Address Organization Details Last Updated DateTime 4 05964.1 6 g 99 % 99 % 98 [degF] 16 /min 70 /min 154.94 cm 106 mm[Hg] 58 mm[Hg] Not Available [facility] 4 14:45:13 Date Recorded Heart rate Respiratory rate Body temperature Body weight Oxygen saturation Oxygen saturation in Arterial blood by Pulse oximetry Systolic blood pressure Diastolic blood pressure Provider Name and Address Organization Details Last Updated DateTime 4 74 /min 16 /min 98.2 [degF] 12898.1 6 g 98 % 98 % 122 mm[Hg] 86 mm[Hg] Not Available [facility] 4 15:47:05 Date Recorded Body mass index (BMI) Body height Provider Name and Address Organization Details Last Updated DateTime 03/02/2024 19.8 kg/m2 154.94 cm Anita Davila MD [address] [facility],[address], [place], [address], [place] [facility] 03/09/2024 23:46:53 Social History None recorded. Functional Status None recorded. Mental Status None recorded. Family History Nothing Reported. Medical History No medical history recorded. Gynecological HistoryNo gynecological history recorded. Obstetrics History GPAL:G 0 P 0 0 0 0 Past Encounters Encounter ID Performer Location Encounter Start Date Encounter Closed Date Diagnosis/Indication Diagnosis SNOMED-CT Code Diagnosis ICD10 Code Diagnosis Note [id number] Sam Obregon MD Main - [facility] [address] [place] [id number] 10/28/2022 11:58:18 10/28/2022 23:25:33 Acute urinary tract infection [id number] N39.0 This 72-year-ol d female has had mild UTI symptoms for several days, but her U/A is negative. I ordered a U/C, and recommende d that she push fluids and follow-up with her PCP in two days for the U/C results. She will call back if her symptoms worsen. The patient agreed with this plan. [id number] Laura Hong MD Main - [facility] [address] [place] [id number] 01/17/2023 18:36:28 01/19/2023 12:59:34 Nausea and vomiting [id number] R11.2 Evaluation in the field was performed by my cutting inspector colleague, as noted above, I provided real-time direction and supervisio n for this visit. 72yo F hx IBS w/ constipati on, chronic pelvic pain p/w 1 day of nausea limiting PO intake. No true vomiting, no diarrhea, no fever. Pain mostly RUQ and RLQ. BM today but harder than normal. UA obtaiend though no UTI sx and showed notable ketones despite normal glucose and only 12 hrs w/o food intake, likely false positive. Most likely viral gastroente ritis less likely cholecysti tis or appendicit s. Rec symptoms mgmt w/ zofran, sips of gatorade, and present for in person eval if sx last > 3 days or worsen. Also rec PCP repeat UA to r/o ketones. Rx zofran to pharmacy. We discussed the diagnostic uncertaint y of home visits and the risk associated with this. In this case, the patient and I felt this to be an acceptable and reasonable amount of risk given the benefit of avoiding an ED visit. We discussed the need to seek care urgently/e mergently in the setting of any new or worsening serious symptoms, shortness of breath, cough, chest pain, fever. [id number] Belle Fountain MD Main - [facility] [address] [place] [id number] 07/25/2023 14:45:11 07/26/2023 12:38:13 Abdominal pain [id number] R10.9 72 year old patient with Hank Danlos (vascular type) and IBS, being evaluated for an episode of sharp intermitte nt upper abdominal pain that radiates to the back. Patient reports she's never had pain like this in the past, occurred rather abruptly while at rest, has not been eating as feels a reduced appetite. Did not have any chest pain, nausea or vomiting, and has had normal stools today. Patient denies alcohol use or any new medication s, and reports pain is settling down currently. Exam notable for normal vital signs, and soft non-tender abdomen. Presentati on today consistent with a large differenti al diagnosis, although less likely to be related to an aortic rupture/telma wel rupture given patient is clinically stable and symptoms have improved without interventi on, more likely PUD, vs IBS vs pancreatic source. Recommend urgent outpatient evaluation to pursue additional work up as indicated. Signs to present to ER reviewed. I have reviewed and agree with the assessment and plan as documented by the cutting inspector. I provided real-time medical direction for this encounter and was immediatel y available to provide additional phone-base d assistance as needed. We discussed the diagnostic uncertaint y of home visits and associated risks. We discussed the need to seek care urgently/e mergently in the setting of any new or worsening symptoms. [id number] Anita Davila MD Main - [facility] [address] [place] [id number] 03/02/2024 15:47:03 03/03/2024 00:12:39 Mass of skin [id number] R22.9 Health Concerns Section Related Observation LastModified by Organization Detai ls LastModified Time None Recorded Concern Status LastModified by Organization Details LastModified Time None Recorded Advance Directives Directive None Recorded Payers Encounter Date Sequence Insurance Name Policy Number Policy Marcum Covered Member ID Marcum Member ID Guarantor Name 10/28/2022 1 [facility] - DOS ON OR AFTER 2022 - DUAL ELIGIBLE - LONGTERM OPTIONS AND ONE CARE (MEDICARE REPLACEMENT/ADV ANTAGE - HMO) Stephie Lombardo [id number] Stephie Lombardo 01/17/2023 1 [facility] - DOS ON OR AFTER 2022 - DUAL ELIGIBLE - LONGTERM OPTIONS AND ONE CARE (MEDICARE REPLACEMENT/ADV ANTAGE - HMO) Stephie Lombardo [id number] Stephie Perezn 07/25/2023 1 [facility] - DOS ON OR AFTER 2022 - DUAL ELIGIBLE - LONGTERM OPTIONS AND ONE CARE (MEDICARE REPLACEMENT/ADV ANTAGE - HMO) Stephie Grupo [id number] Stephiethong Beeelizabet 03/02/2024 1 [facility] - DOS ON OR AFTER 2022 - DUAL ELIGIBLE - LONGTERM OPTIONS AND ONE CARE (MEDICARE REPLACEMENT/ADV ANTAGE - HMO) Stephie Grupo [id number] Stephie Beeelizabet Notes Date Note Type Note Provider Name and Address Organization Details Recorded Time 10/28/2022 text/html [facility] Nursing Assessment: Reason For Request: UTI Chief Complaints: UTI/Pyelonephritis, Pain Allergies: Penicillin Comments: Member calling in to place a referral, identified via /name. Member believes she may have a UTI. Member with burning with urination, increased urgency and frequency, has some pain/discomfort to lower abdomen/pelvic area, denies discoloration, no flank pain, no fever/chills. Member would like to be evalauted. Sam Obregon MD [address] [place] [address],[address], [place], [phone], [employer] 10/28/2022 12:02:41 01/17/2023 text/html [facility] Nursing Assessment: Reason For Request: Pt states before going to bed last night feeling slight nauseas>had more water this morning and felt more nausea>Right abdominal pain, mentions having IBS>no appetite, pain on most of the right side> Chief Complaints: Abdominal Pain, Pain, Nausea/Vomiting PMH: Other Allergies: Penicillin Comments: Started having nausea last night into today. Developed right lower abdominal pain today that is a different pain that IBS abdominal cramping. Pain is now migrated to right mid and upper abdomen abdomen. No known fever or chills. Agreeable to go to the ED for worsening pain/symptoms. ...................... ...................... ...................... ...................... ...................... ...................... ......... Broiler Supervisor Note From Ezequiel Davenport: Pt reports that she woke up with right side lower abd pain and states that it is now her whole right side. States that she feels blotted. And has been having poor oral intake and nausea. Denies any fever chills denies any V/D states that she has been having some hard stools last BM was today. On scene vs taken and UA done. C was called pt given 4mg of zofran and cleared. Broiler Supervisor Allergies: Penicillin ...................... ...................... ...................... ...................... ...................... ...................... ......... Disposition: Fulfilled Laura Hong MD [address] [place] [address],[address], [place], [phone], [employer] [facility] 01/17/2023 19:18:11 07/25/2023 text/html [facility] Nurse Triage Notes (Tavares Puente): Chief Complaints: Abdominal Pain Allergies: Penicillin Comments: Header Operator verified the member's name//address and phone number. Mbr calling complaining of severe abdominal cramping. Mbr reports pain has increased since around 1000 this morning. Mbr describes pain as sharp and located in mid abdomen. Mbr reports hx of IBS; denies N/V/D. Mbr sounds uncomfortable at time of call. Mbr reports not passing as much gas as normal. Education provided on the response time and the member was advised to monitor reported s/s and seek emergency treatment if needed -Candice Puente RN ...................... ...................... ...................... ...................... ...................... ...................... ......... Broiler Supervisor Note From Brandon Bustillo: Pt reports sharp epigastric pain that was radiating to her back earlier today. Pt sts the pain has been waxing and waining throughout the day and is currently at a tolerable level. Pt sts hx of IBS but this does not feel like her usual discomfort. Pt had a loose stool earlier and is not passing gas. Pt denies CP, SOB, PERSAUD, f/n/v/d. Pt is alert, NAD. VSS. Afebrile. Non focal neuro exam. Normal gait. Lungs CTA. ABD is soft, non tender, non distended. No LE edema. [facility] spoke directly to pt addressing all concerns. Pt to f/u with PCP on Thursday and provide a stool sample to the PCP. Pt instructed to seek emergent medical care for new or worsening sx, which are reviewed with her. ...................... ...................... ...................... ...................... ...................... ...................... ......... Disposition: Charo Fountain MD [address] [facility],[address], [place], [address], [employer] 07/25/2023 15:22:05 03/02/2024 text/html HPI: Patient with history of dysauotnomia, Hank Danlos Syndrome.Patient with concern of soft pink skin lump on lower correa. Due to travel out of the country on Thursday ...................... ...................... ...................... ...................... ...................... ...................... ......... [facility] Nurse Triage Notes (Di Anderson): Chief Complaints: Leg pain/swelling PMH: Asthma, Cigarette Smoker, Gastroesophageal Reflux Disease (GERD), Incontinence Comments: HPI reviewed- NE ...................... ...................... ...................... ...................... ...................... ...................... ......... Broiler Supervisor Note From Home Pichardo: Pt co pink bump on her right correa. Pt denies pain or itching. Pt describes as feeling like a bruise. Pt denies fever, SOB, CP, dizziness, headache or NVD. Pt denies falls and can't remember if she hit correa on anything or not. Negative laceration or bleeding present. Area not hot to touch. No pain on palpation. Pt able to ambulate appropriately. Pt was concerned due to up coming trip to [facility]. Baseline vitals assessed. [facility] contacted and advised pt to monitor and if worsens to contact PCP for further exam. Pt requested insted contact her care team and advised them. [facility] sts will contact care team.Pt education on signs indicating the ER. ...................... ...................... ...................... ...................... ...................... ...................... ......... [facility] Consulted: Vashti Yañez ...................... ...................... ...................... ...................... ...................... ...................... ......... Disposition: Fulfilled Anita Davila MD [address] [facility],[address], [place], [address], [employer] [facility] 03/10/2024 10:52:28 OBGyn Episode No OBEpisode recorded.
--- OUTSIDE RECORDS SUMMARY | 2024-05-24 10:35 | XMS_ITS | Encounter Summary ---
Author Organization [employer] Address [address] 7[address] [place] [address] Care Team Providers Care Chief Deputy Coroner Name Role Phone Tami ArmendarizP Primary Care Provider [phone] Kim Mcmullen NP Primary Care Provider [phone] Reason for Visit * Reason Onset Date Comments Results 05/20/2023 Encounter Details Date Type Department Care Team ([facility] Contact Info) Description 05/20/2023 Telephone [facility] MED[facility]INE [address], [place] [phone] Tami Armendariz FNP [address] [place] [address] Results Social History Tobacco Use Types Packs/Day Years [...] encounter Miscellaneous Notes * Telephone Encounter - Paul Alvarez RN - 05/21/2023 2:20 PM EST Please review and advise for below request. * Telephone Encounter - Monisha Delacruz - 05/20/2023 1:57 PM EST TC from pt requesting call back regarding Results. Type of results: labs Date when done: 04/17 Facility: [facility] Please contact pt at [phone] documented in this encounter Plan of Treatment Upcoming Encounters Date Type Department Care Team ([facility] st Contact Info) Description 10/18/2024 11:00 AM EDT Office Visit [facility] Dental [address] [place] [address] Tita Owens LLD [address] [place] [address] documented as of this encounter Visit Diagnoses Not on filedocumented in this encounter Additional Health Concerns Assessment Noted Time PHQ-9 Depression Total Score: 0 12/18/19 23 2:24 PM EDT documented as of this encounter Care Teams Chief Deputy Coroner Relationship Specialty Start Date End Date Tami Armendariz FNP [address] [place] [address] PCP - General Family Medicine 12/11/22 10/18/23 Kim Mcmullen NP [address] [place] [address] PCP - General Family Medicine 10/19/23 documented as of this encounter
--- OUTSIDE RECORDS SUMMARY | 2024-05-24 10:35 | XMS_ITS | Encounter Summary ---
Author Organization [employer] Address [address] 7[address] [place] [address] Care Team Providers Care Clinical Law Professor Name Role Phone Tami ArmendarizP Primary Care Provider [phone] Kim Mcmullen NP Primary Care Provider [phone] Reason for Visit * Reason Onset Date Comments Nurse Triage 01/19/2023 Encounter Details Date Type Department Care Team ([facility] st Contact Info) Description 01/19/2023 Telephone [facility] MEDICINE [address] [place], [place] [phone] Tami Armendariz FNP [address] [place] [address] Nurse Triage Social History Tobacco Use Types Packs/Day Years [...] encounter Miscellaneous Notes * Telephone Encounter - Kiara Dotson RN - 01/19/2023 11:28 AM EDT Triage call Pt reports a chronic right sided abdominal pain. Pt was seen 01/17/23 by [facility] with dxof dehydration. Pt continues to have some nausea, weakness, loss of appetite though the pain has subsided significantly. Pt was advised to follow up with PCP and possible ultra sound of gall bladder could be ordered. Apt with MIKHAIL Archuleta 01/21/23 @ 945am. Insurance is verified as active prior to booking. Pt agrees with disposition and home care reviewed especially need to drink liquids. Protocol Used: Abdominal Pain - Female (Adult) Protocol-Based Disposition: See in Office or Video Visit Today Override (Final) Disposition: See in Office or Video Visit within 3 Days Override Reason: No appointments available Video visit not offered Positive Triage Question: * Patient wants to be seen * All higher-acuity triage questions were negative Care Advice Discussed: * Reassurance and Education - Stomach Pain * Rest * Drink Clear Fluids * Pass a Stool * Expected Course - Abdomen Pain * Reasons To Call Back - Severe pain lasts over 1 hour - Constant pain lasts over 2 hours - Intermittent pains (e.g., comes and goes, cramps) lasts over 48 hours - You are - You become worse * Telephone Encounter - Nicko Sexton - 01/19/2023 10:44 AM EDT Symptoms: Abdominal Pain - Female - Not , Loss of Appetite Outcome: Schedule an urgent appointment (within 4 hours) or talk to a nurse or provider soon Reason: Started within the past 3 days The caller accepted this outcome Tc from patient stating she was seen on 01/17/23 for right side abdominal pain by [facility] [employer] [facility] states she was very dehydrated and to speak to her PCP to get a ultra sound regarding to pain. documented in this encounter Plan of Treatment Upcoming Encounters Date Type Department Care Team (Late st Contact Info) Description 10/18/2024 11:00 AM EDT Office Visit [facility] Dental [address] [place] [address] Tita Owens LLD [address] [place] [address] documented as of this encounter Visit Diagnoses Not on filedocumented in this encounter Additional Health Concerns Assessment Noted Time PHQ-9 Depression Total Score: 0 12/18/19 23 2:24 PM EDT documented as of this encounter Care Teams Clinical Law Professor Relationship Specialty Start Date End Date Tami Armendariz FNP [address] [place] [address] PCP - General Family Medicine 12/11/22 10/18/23 Kim Mcmullen NP [address] [place] [address] PCP - General Family Medicine 10/19/23 documented as of this encounter
--- OUTSIDE RECORDS SUMMARY | 2024-05-24 10:35 | XMS_ITS | Encounter Summary ---
Author Organization [employer] Address [address] 7[address] [place] [address] Care Team Providers Care Tube Wrapper Name Role Phone Tami ArmendarizP Primary Care Provider [phone] Kim Mcmullen NP Primary Care Provider [phone] Reason for Visit * Reason Onset Date Comments Results 09/22/2023 Encounter Details Date Type Department Care Team ([facility] st Contact Info) Description 09/22/2023 Telephone [facility] MEDICINE [address] [place], [place] [phone] Tami Armendariz FNP [address] [place], [place] [phone] Results Social History Tobacco Use Types Packs/Day [...] Telephone Encounter - Paul Alvarez RN - 09/25/2023 9:50 AM EDT T/C to pt. For below message from Kim Mcmullen NP. Pt. States she does not want to start cholesterol medication right now, she wants to work on diet for cholesterol, as well as want to discuss with PCP in next upcoming apt. Pt. Is asking if PCP wants to send referral for assistant curator for above concerns. Please review and advise. * Telephone Encounter - Kim Mcmullen NP - 09/25/2023 9:41 AM EDT Please let pt know there is no evidence of aneurysm however there is evidence of atherosclerosis. Treatment would include a cholesterol medication. If pt is interested in rx, I can send, if further discussion I would recommend she schedules a visit * Telephone Encounter - Paul Alvarez RN - 09/22/2023 4:03 PM EDT Please review and advise for below message, result is in pt.'s chart. * Telephone Encounter - Thang Cheatham - 09/22/2023 3:52 PM EDT TC from pt requesting call back regarding Results. Type of results: Ultrasound Date when done: 08/30 Facility: [facility] documented in this encounter Plan of Treatment Upcoming Encounters Date Type Department Care Team (Late st Contact Info) Description 10/18/2024 11:00 AM EDT Office Visit [facility] Dental [address] [place] [address] Tita Owens LLD [address] [place] [address] documented as of this encounter Visit Diagnoses Not on filedocumented in this encounter Additional Health Concerns Assessment Noted Time PHQ-9 Depression Total Score: 0 12/18/19 23 2:24 PM EDT documented as of this encounter Care Teams Tube Wrapper Relationship Specialty Start Date End Date Tami Armendariz FNP [address] [place] [address] PCP - General Family Medicine 12/11/22 10/18/23 Kim Mcmullen NP [address] [place] [address] PCP - General Family Medicine 10/19/23 documented as of this encounter
--- OUTSIDE RECORDS SUMMARY | 2024-05-24 10:35 | XMS_ITS | Encounter Summary ---
Author Organization [employer] Address [address] 7[address] [place] [address] Care Team Providers Care Mmi Teacher Name Role Phone Tami ArmendarizP Primary Care Provider [phone] Kim Mcmullen NP Primary Care Provider [phone] Reason for Visit * Reason Onset Date Comments Appointment Request 02/09/2023 Encounter Details Date Type Department Care Team ([facility] st Contact Info) Description 02/09/2023 Telephone [facility] MEDICINE [address] [place], [place] [phone] Tami Armendariz FNP [address] [place], [place] [phone] Appointment Request Social History Tobacco Use Types Packs/Day Years [...] encounter Miscellaneous Notes * Telephone Encounter - Zeinab Lan - 02/09/2023 12:09 PM EST Tc from pt requesting f/u appt with PCP, pt is on a recall for February, residential mortgage underwriter attempted schedule,no availability at the moment. documented in this encounter Plan of Treatment Upcoming Encounters Date Type Department Care Team (Late st Contact Info) Description 10/18/2024 11:00 AM EDT Office Visit Jessi [facility] Dental [address] [place] [address] Tita Owens LLD [address] [place] [address] documented as of this encounter Visit Diagnoses Not on filedocumented in this encounter Additional Health Concerns Assessment Noted Time PHQ-9 Depression Total Score: 0 12/18/19 23 2:24 PM EDT documented as of this encounter Care Teams Mmi Teacher Relationship Specialty Start Date End Date Tami Armendariz FNP [address] [place] [address] PCP - General Family Medicine 12/11/22 10/18/23 Kim Mcmullen NP [address] [place] [address] PCP - General Family Medicine 10/19/23 documented as of this encounter
== END 2024-05-24 10:31 | disposition home or self-care (01) ==
PROVIDERS: PCP Nurse Practitioner Family; Visit Provider Internal Medicine
DX: R94.31 Abnormal electrocardiogram [ECG] [EKG] (principal); R42 Dizziness and giddiness
CPT/HCPCS: 93010; 99204; G2211

== ENCOUNTER → 2024-05-24 09:29 | Outpatient (BNVA) | payer OTHER, SELFPAY | PROVIDERS: PCP Nurse Practitioner Family; Visit Provider Internal Medicine | DX: R94.31 Abnormal electrocardiogram [ECG] [EKG] (principal); R42 Dizziness and giddiness | CPT/HCPCS: 93005; 99202 ==

== ENCOUNTER → 2024-06-07 12:34 | Outpatient (REF) | payer OTHER, SELFPAY ==
--- NOTE | 2024-06-07 12:38 | CA_ITS ---
Transthoracic Echocardiogram Patient (Last, First, Middle): Stephie Lombardo, Gender: Female Date of : 1950 Age: 73 Procedure Date: 06/07/2024 Procedure Type: Transthoracic Echocardiogram Location: OP Height: 152.4 cm Weight: 45.36 kg BSA: 1.39 m2 Heart Rate: bpm BP: 124 / 64 mmHg Business Development Specialist: MELISSA Referring MD: Reji Barahona MD Transmission Engineer: Dav Piper MD Symptoms: R94.31 - Abnormal electrocardiogram [ECG] [EKG] Study Quality: Fair ECG Rhythm: Sinus Conclusions: - 1. Normal LV ejection fraction of 65-70% with impaired relaxation filling pattern 2. Normal cardiac valvular Dopplers 3. Normal RV systolic pressure 4. No gross pericardial effusion Findings Left Ventricle Normal left ventricular size, thickness, and systolic function. The visually estimated ejection fraction is between 65-70%. Spectral Doppler is indicative of an impaired relaxation filling pattern. Right Ventricle Normal right ventricular cavity size and systolic function. Atria Both atria are normal in size. Interatrial shunt cannot be excluded. Aortic Valve The aortic valve structure and function is likely normal. There is no aortic valve stenosis. There is no aortic valve regurgitation. Mitral Valve Likely normal mitral valve structure and function. There is trace mitral valve regurgitation. There is no mitral valve stenosis. Pulmonic Valve The pulmonic valve was not well visualized. Tricuspid Valve Likely normal tricuspid valve structure and function. There is trace tricuspid valve regurgitation. The right ventricular systolic pressure is normal. The right ventricular systolic pressure is 20 mmHg. Normal right atrial pressure. There is no evidence of pulmonary hypertension. Great Vessels All visible segments of the aorta are normal in size. The pulmonary artery was not well visualized. There is no dilatation of the ascending aorta measuring 2.90 cm. Venous The inferior vena cava is normal in size and collapses greater than 50% with inspiration. Pericardium/Pleural There is no evidence of pericardial effusion. Prior Study Comparison No prior study available for comparison. Measurements 2D Linear Measurements IVSd: 0.50 0.6-0.9/0.6-1.0 cm LVIDd: 3.89 3.9-5.3/4.2-5.9 cm LVIDd Index: 2.80 2.4-3.2/2.2-3.1 cm/m2 LVIDs: 2.40 2.0-3.6 cm LVPWd: 0.68 0.7-1.1 cm LA Diam: 2.20 2.7-3.8/3.0-4.0 cm LAIDs Index: 1.58 1.5-2.3 cm/m2 LV Mass: 74.16 67-162/88-224 g LV Mass Index: 53.35 43-95/49-115 g/m2 LVOT Diam: 1.90 3.0+(-)1.3 cm 2D Systolic Function EF 4C: 58.90 >55% EF 2C: 70.00 >55% EF BiP: 66.20 >55% Mitral Valve MV Pk E: 0.74 MV PK A: 0.80 MV Decel Time: 287.00 E/A: 0.90 E'Lateral: 8.16 E'Medial: 6.09 E/E' Med: 12.20 E/E' Lat: 9.10 PHT: 84.00 MVA PHT: 2.62 Decel [place]: 2.58 Aortic Valve AoV Pk Richie: 1.26 AoV Mn Richie: 0.83 AoV VTI: 0.23 AoV Pk Grad: 6.00 Aov Mn Grad: 3.00 [place] Cont.VTI: 2.44 LVOT LVOT Pk Richie: 0.93 LVOT Mn Richie: 0.58 LVOT VTI: 0.20 LVOT Pk Grad: 3.00 LVOT Mn Grad: 2.00 LVOT Diam: 1.90 LVOT Area: 2.84 Diastolic Function MV Pk E: 0.74 MV Pk A: 0.80 E/A: 0.90 E'Medial: 6.09 E/E' Med: 12.20 E' Laterial: 8.16 E/E' Lat: 9.10 Right Ventricle TAPSE (mm): 27.30 TVS' Richie: 13.40 Tricuspid Valve TR Pk Richie: 2.08 TR Pk Grad: 17.00 RA Press: 3.00 RVSP: 20.00 Great Vessels Aorta Sinus of Valsalva: 2.88 2.0-3.[address] [place]: 2.06 1.7-3.4 cm Ao Asc: 2.90 2.1-3.4 cm Updated in Other Vendor System with Status of Final Dav Piper MD electronically signed on 06/07/2024 5:03:21 PM with status of Final
--- OUTSIDE RECORDS SUMMARY | 2024-06-07 14:47 | XMS_ITS | Clinical Summary ---
Author Organization [facility] Address [address] [place] [address] Care Team Providers Care Outside Repairer Special Name Role Phone Aiden Preston MD Primary Care Provider [phone] Surgical History Surgery Date Site/Laterality Comments OTHER [...] Info) Description 07/19/2024 1:[address] [facility] [address] [place] [address] Health Maintenance Due Date Last [...] age to complete this topic Care Teams Outside Repairer Special Relationship Specialty Start Date End Date Aiden Preston MD [address] [place] Tapia PCP - General Internal Medicine 02/01/19
--- OUTSIDE RECORDS SUMMARY | 2024-06-07 14:47 | XMS_ITS | Clinical Summary ---
Author Organization [employer] Address [address] 7t [place] [address] Care Team Providers Care Background Check Coordinator Name Role Phone Kim Mcmullen NP Primary Care Provider [phone] Allergies Active Allergy Reactions Criticality Noted Date [...] Description 04/18/2024 3:45 PM EST Office Visit [facility] MEDICINE [address] [place] [address] Kim Mcmullen NP TMJ (temporomandibular joint disorder) (Primary Dx) 04/18/2024 Travel 04/14/2024 12:00 PM EST Office Visit Jessi [facility] Dental [address] [place] [address] Tita Owens LLD Encounter for dental examination (Primary Dx) 04/06/2024 Telephone [facility] MEDICINE [address] [place] [address] Joanna Oneill MA Chart Prep from Last 3 Months Immunizations Name Administration [...] your housing situation today? I have eddie gordon 12/18/[address] you li [...] Description 10/18/2024 11:00 AM EDT Office Visit [place] Dental [address] [place] [address] Tita Owens LLD [address] [place] [address] Health Maintenance Due Date Last Done Comments [...] 2 - PPSV23) 01/12/2020 11/17/2019 COVID-19 Vaccine ( season) 2023 05/05/2020, 04/07/2020, 03/23/2020 Influenza Vaccine [...] AM EDT) Hepatitis A IgM Nonreactive Nonreactive [facility] Comment:IgM antibodies to MCLAIN V not detected; does not exclude earlyacute or recovered HAV infection. ~Hepatitis B Surface Antibody NONREACTIVE Nonreactive [facility] Comment:Nonreactive: < 8.00 mIU/mL Hepatitis B Core Antibody Nonreactive Nonreactive [facility] Hepatitis C Antibody Nonreactive Nonreactive [facility] Comment:Antibodies to HCV no t detected; does not exclude early acuteHCV infection. Hepatitis B Surface Ag Negative Negative [facility] Blood Venous blood specimen / Unknown 01/21/2023 11:54 AM EDT 01/21/2023 3:52 PM EDT us Di Archuleta TESTING LEAD LAB BLOOD ORDERABLES Final Res ult [facility] [address] [place] [address] [phone] from Last 3 Months or Most Recently Relevant to Health Maintenance Insurance [facility] Care Teams Background Check Coordinator Relationship Specialty Start Date End Date Kim Mcmullen NP [address] [place] [address] [place] [address] PCP - General Family Medicine 10/19/23
--- OUTSIDE RECORDS SUMMARY | 2024-06-07 14:48 | XMS_ITS | Encounter Summary ---
Author Organization [employer] Address [address] [place] [address] Care Team Providers Care Regional Flatbed Truck Driver Name Role Phone Tami ArmendarizP Primary Care Provider [phone] Kim Mcmullen NP Primary Care Provider [phone] Reason for Visit * Reason Onset Date Comments Appointment Request 02/09/2023 Encounter Details Date Type Department Care Team ([facility] st Contact Info) Description 02/09/2023 Telephone [facility] MEDICINE [address] [place], [place] [phone] Tami Armendariz FNP [address] [place], [place] [phone] Appointment Request Social History Tobacco Use Types [...] pt is on a recall for February, check writer attempted schedule,no availability at the moment. documented in this encounter Plan of Treatment Upcoming Encounters Date Type Department Care Team (Late st Contact Info) Description 10/18/2024 11:00 AM EDT Office Visit Jessi [facility] Dental [address] [place] [address] Tita Owens LLD [address] [place] [address] documented as of this encounter Visit Diagnoses Not on filedocumented in this encounter Additional Health Concerns Assessment Noted Time PHQ-9 Depression Total Score: 0 12/18/19 23 2:24 PM EDT documented as of this encounter Care Teams Regional Flatbed Truck Driver Relationship Specialty Start Date End Date Tami Armendariz FNP [address] [place] [address] PCP - General Family Medicine 12/11/22 10/18/23 Kim Mcmullen NP [address] [place] [address] PCP - General Family Medicine 10/19/23 documented as of this encounter
--- OUTSIDE RECORDS SUMMARY | 2024-06-07 14:48 | XMS_ITS | Encounter Summary ---
Author Organization [employer] Address [address] [place] [address] Care Team Providers Care Patient Care Manager Name Role Phone Tami ArmendarizP Primary Care Provider [phone] Kim Mcmullen NP Primary Care Provider [phone] Reason for Visit * Reason Onset Date Comments Nurse Triage 01/19/2023 Encounter Details Date Type Department Care Team ([facility] st Contact Info) Description 01/19/2023 Telephone [facility] MEDICINE [address] [place], [place] [phone] Tami Armendariz FNP [address] [place], [place] [phone] Nurse Triage Social History Tobacco Use Types [...] 10/18/2024 11:00 AM EDT Office Visit Jessi [facility] Dental [address] [place] [address] Tita Owens LLD [address] [place] [address] documented as of this encounter Visit Diagnoses Not on filedocumented in this encounter Additional Health Concerns Assessment Noted Time PHQ-9 Depression Total Score: 0 12/18/19 23 2:24 PM EDT documented as of this encounter Care Teams Patient Care Manager Relationship Specialty Start Date End Date Tami Armendariz FNP [address] [place] [address] PCP - General Family Medicine 12/11/22 10/18/23 Kim Mcmullen NP [address] [place] [address] PCP - General Family Medicine 10/19/23 documented as of this encounter
--- OUTSIDE RECORDS SUMMARY | 2024-06-07 14:48 | XMS_ITS | Encounter Summary ---
Author Organization [employer] Address [address] [facility] 7t [place] [address] Care Team Providers Care Printing Equipment Mechanic Name Role Phone Tami ArmendarizP Primary Care Provider [phone] Kim Mcmullen NP Primary Care Provider [phone] Encounter Details Date Type Department Care Team (Late st Contact Info) Description 12/17/2022 Abstract [facility] MEDICINE [address] [place] [address] Tami Armendariz FNP [address] [place] [address] Social History Tobacco Use Types Packs/Day Years [...] 10/18/2024 11:00 AM EDT [facility] [address] [place] [address] Tita Owens LLD [address] [place] [address] documented as of this encounter Visit Diagnoses Not on filedocumented in this encounter Additional Health Concerns Assessment Noted Time PHQ-9 Depression Total Score: 0 12/18/19 23 2:24 PM EDT documented as of this encounter Care Teams Printing Equipment Mechanic Relationship Specialty Start Date End Date Tami Armendariz FNP [address] [place] [address] PCP - General Family Medicine 12/11/22 10/18/23 Kim Mcmullen NP [address] [place] [address] PCP - General Family Medicine 10/19/23 documented as of this encounter
--- OUTSIDE RECORDS SUMMARY | 2024-06-07 14:48 | XMS_ITS | Encounter Summary ---
Author Organization [employer] Address [address] [place] [address] Care Team Providers Care Director Of Content And Programming Name Role Phone Tami ArmendarizP Primary Care Provider [phone] Kim Mcmullen NP Primary Care Provider [phone] Reason for Visit * Reason Onset Date Comments Results 09/22/2023 Encounter Details Date Type Department Care Team ([facility] st Contact Info) Description 09/22/2023 Telephone [facility] MEDICINE [address] [place], [place] [phone] Tami Armendariz FNP [address] [place], [place] [phone] Results Social History Tobacco Use Types Packs/Day [...] if PCP wants to send referral for dulite machine bluer for above concerns. Please review and advise. [...] results: Ultrasound Date when done: 08/30 Facility: [facility] documented in this encounter Plan of Treatment Upcoming Encounters Date Type Department Care Team (Late st Contact Info) Description 10/18/2024 11:00 AM EDT Office Visit [place] [facility] Dental [address] [place] [address] Tita Owens LLD [address] [place] [address] documented as of this encounter Visit Diagnoses Not on filedocumented in this encounter Additional Health Concerns Assessment Noted Time PHQ-9 Depression Total Score: 0 12/18/19 23 2:24 PM EDT documented as of this encounter Care Teams Director Of Content And Programming Relationship Specialty Start Date End Date Tami Armendariz FNP [address] [place] [address] PCP - General Family Medicine 12/11/22 10/18/23 Kim Mcmullen NP [address] [place] [address] PCP - General Family Medicine 10/19/23 documented as of this encounter
--- OUTSIDE RECORDS SUMMARY | 2024-06-07 14:48 | XMS_ITS | Encounter Summary ---
Author Organization [employer] Address [address] [facility] 7t [place] [address] Care Team Providers Care Compounding Technician Name Role Phone Tami ArmendarizP Primary Care Provider [phone] Kim Mcmullen MEDICAL VOUCHER CLERK Primary Care Provider [phone] Reason for Visit * Reason Onset Date Comments New Patient 11/05/2022 Encounter Details Date Type Department Care Team (Late st Contact Info) Description 11/05/2022 Telephone [facility] [address] [place], [place] [phone] Tami Armendariz FNP [address] [place], [place] [phone] New Patient Social History Tobacco Use Types [...] PAR Candie Conde called pt to Offer MEDICAL VOUCHER CLERK appt. Pt demographics and insurance information were verified. 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 Pt is currently taking medication: Thyroid Medication and a list Anti/ Supplements ( advised to please bring to appt date ) Pt given MEDICAL VOUCHER CLERK appt with Dr. Tami Armendariz on 12/17/2022 @ 2:15 pm. Pt will be sent appt reminder card and medical release form and agrees to complete and to return to medical records prior to MEDICAL VOUCHER CLERK appt. documented in this encounter Plan of Treatment Upcoming Encounters Date Type Department Care Team (Late st Contact Info) Description 10/18/2024 11:00 AM EDT Office Visit [facility] [address] [place] [address] Tita Owens LLD 9 [place] [address] documented as of this encounter Visit Diagnoses Not on filedocumented in this encounter Care Teams Compounding Technician Relationship Specialty Start Date End Date Tami Armendariz FNP [address] [place] [address] PCP - General Family Medicine 12/11/22 10/18/23 Kim Mcmullen NP [address] [place] [address] PCP - General Family Medicine 10/19/23 documented as of this encounter
--- OUTSIDE RECORDS SUMMARY | 2024-06-07 14:48 | XMS_ITS | Encounter Summary ---
Author Organization [employer] Address [address] [facility] [address] [place] [address] Care Team Providers Care Watch Supervisor Name Role Phone Tami ArmendarizP Primary Care Provider [phone] Kim Mcmullen NP Primary Care Provider [phone] Reason for Visit * Reason Onset Date Comments Results 05/20/2023 Encounter Details Date Type Department Care Team ([facility] Contact Info) Description 05/20/2023 Telephone [facility] [address] [place], [place] [phone] Tami Armendariz FNP [address] [place], [place] [phone] Results Social History Tobacco Use Types Packs/Day [...] results: labs Date when done: 04/17 Facility: [facility] Please contact pt at [phone] documented in this encounter Plan of Treatment Upcoming Encounters Date Type Department Care Team ([facility] st Contact Info) Description 10/18/2024 11:00 AM EDT Office Visit Jess[facility] [address] [place] [address] Tita Owens LLD 9 [place] [address] documented as of this encounter Visit Diagnoses Not on filedocumented in this encounter Additional Health Concerns Assessment Noted Time PHQ-9 Depression Total Score: 0 12/18/19 23 2:24 PM EDT documented as of this encounter Care Teams Watch Supervisor Relationship Specialty Start Date End Date Tami Armendariz FNP [address] [place] [address] PCP - General Family Medicine 12/11/22 10/18/23 Kim Mcmullen NP [address] [place] [address] PCP - General Family Medicine 10/19/23 documented as of this encounter
--- OUTSIDE RECORDS SUMMARY | 2024-06-07 14:48 | XMS_ITS | Encounter Summary ---
Author Organization [employer] Address [address] [facility] 7t [place] [address] Care Team Providers Care Lead Refiner Name Role Phone Tami Armendariz Primary Care Provider [phone] Kim Mcmullen NP Primary Care Provider [phone] Encounter Details Date Type Department Care Team [...] Description 10/18/2024 11:00 AM EDT Office Visit [place] [facility] [address] [place] [address] Tita Owens LLD [address] [place] [address] documented as of this encounter Visit Diagnoses Not on filedocumented in this encounter Care Teams Lead Refiner Relationship Specialty Start Date End Date Tami Armendariz FNP [address] [place] [address] PCP - General Family Medicine 12/11/22 10/18/23 Kim Mcmullen NP [address] [place] [address] PCP - General Family Medicine 10/19/23 documented as of this encounter
--- OUTSIDE RECORDS SUMMARY | 2024-06-07 14:48 | XMS_ITS | Encounter Summary ---
Author Organization [employer] Address [address] [facility] [address] 7[address] [place] [address] Care Team Providers Care Academic Coach Name Role Phone Tami ArmendarizP Primary Care Provider [phone] Kim Mcmullen PATHOLOGY SUPERVISOR Primary Care Provider [phone] Encounter Details Date Type Department Care Team (Late st Contact Info) Description 02/11/2023 Abstract [facility] [address] [place] [address] Christina Murry Social History Tobacco Use Types [...] 10/18/2024 11:00 AM EDT Office Visit Jessi [facility] Dental [address] [place] [address] Tita Owens LLD 9 [place] [address] documented as of this encounter Procedures Procedure [...] documented as of this encounter Care Teams Academic Coach Relationship Specialty Start Date End Date Tami Armendariz FNP [address] [place], [place] [phone] PCP - General Family Medicine 12/11/22 10/18/23 Kim Mcmullen NP [address] [place], [place] [phone] PCP - General Family Medicine 10/19/23 documented as of this encounter"
--- OUTSIDE RECORDS SUMMARY | 2024-06-07 14:48 | XMS_ITS | Encounter Summary ---
Author Organization [employer] Address [address] [facility] [address] [place] [address] Care Team Providers Care Construction Or Leak Gang Laborer Name Role Phone Tami ArmendarizP Primary Care Provider [phone] Kim Mcmullen NP Primary Care Provider Reason for Visit * Reason Onset Date Comments Referral 04/21/2023 Encounter Details Date Type Department Care Team ([facility] st Contact Info) Description 04/21/2023 Telephone [facility] [address] [place], [place] [phone] Tami Armendariz FNP [address] [place], [place] [phone] Referral Social History Tobacco Use Types Packs/Day [...] [facility] to speak with the [place] for the PCP to obtain aInsurance referral literary writer did attempt to transfer to direct line but was advised by the insurance claims analyst needs to get referral by the [place] documented in this encounter Plan of Treatment Upcoming Encounters Date Type Department Care Team (Late st Contact Info) Description 10/18/2024 11:00 AM EDT Office Visit [place] [facility] Dental [address] [place] [address] Tita Owens LLD [address] [place] [address] documented as of this encounter Visit Diagnoses Not on filedocumented in this encounter Additional Health Concerns Assessment Noted Time PHQ-9 Depression Total Score: 0 12/18/19 23 2:24 PM EDT documented as of this encounter Care Teams Construction Or Leak Gang Laborer Relationship Specialty Start Date End Date Tami Armendariz FNP [address] [place] [address] PCP - General Family Medicine 12/11/22 10/18/23 Kim Mcmullen NP [address] [place] [address] PCP - General Family Medicine 10/19/23 documented as of this encounter
--- OUTSIDE RECORDS SUMMARY | 2024-06-07 14:48 | XMS_ITS | Data Portability ---
Author Organization [employer] Address [address] [place] [address] Care Team Providers Care Account Review Specialist Name Role Phone HIM [facility] OTHER [facility] OTHER Assessment Encounter Date Assessment Date Assessment LastModified by Organization Details LastModified Time 03/02/2024 03/02/2024 I provided real -time medical direction via phone for this encounter and was available for additional phone-based assistance as needed. I have reviewed and agree with the Assessment and Plan as documented by the Manager Of Financial Planning. Patient given the opportunity to ask questions. 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 She calls this service as she is going out of town on Thursday to [facility] and wants to know if it is safe to travel. She called her PCP's office who was unable to see her and referred her to this service. Unfortunately due to technical issues the pictures of the lesion were unable to be uploaded. The patient denies trauma. She noticed a small pink round enterprise on the anterior surface of her correa that is essentially nontender to palpation over the past 24 hours. She denies any bites from bugs. Again denies trauma. It is not pruritic. It is not painful necessarily. She denies having this anywhere else on her body. Per aquaculture and fisheries professor on the scene, vital signs are stable [...] None recorded. Lab urinalysis, dipstick [address], [address] [place] [address], [id number], 18:43:31 culture, urine 2022 023 [facility], [address] [place] [address], [place], [address], 17:33:19 Referral None recorded. Procedures None recorded. Surgeries None recorded. Imaging None recorded. Medication Orders ondansetron 4 mg disintegrat ing tablet 2022 023 [facility] #[id number], [address] [place] [address], [id number], 18:43:40 ondansetron 4 mg disintegrat ing tablet [address] [facility] #[id number], [address] [place] [address], [id number], 18:43:31 Patient TargetsNo targets recorded. Patient InstructionsNo instructions recorded. Reason for Referral None Reported. Results Created Date Observation Date Name Description Value Unit Range Abnormal Flag Note LastModifiedBy Organization Detail LastModifiedTime 10/29/19 23 10/30/2022 CULTU RE, URINE , ROUTI NE culture, urine, routine SEE NOTE CULTU RE, URINE , ROUTI NE Micro Numbe r: [id number] Test Statu s: Final Speci men Sourc e: Not given Speci men Quali ty: Adequ ate Resul t: No Growt h Not Available [facility] [address], [place], [address], 10/30/2022 17:33:19 01/18/2001/17/2023 urina lysis , dipst ick Leukocytes neg Not Available [facility] - [facility] [address] [place] [address], [id number], 01/17/2023 18:43:12 01/18/2001/17/2023 urina lysis , dipst ick Nitrite negati ve Not Available [facility] - [facility] [address] [place] [address], [id number], 01/17/2023 18:43:12 01/18/2001/17/2023 urina lysis , dipst ick Protein + Not Available Main - [facility] [address], [address], 01/17/2023 18:43:12 01/18/2001/17/2023 urina lysis , dipst ick Blood neg Not Available Main - [facility] [address], [address], 01/17/2023 18:43:12 01/18/2001/17/2023 urina lysis , dipst ick Ketone + Not Available Main - [facility] [address], [address], 01/17/2023 18:43:12 01/18/2001/17/2023 urina lysis , dipst ick Glucose neg Not Available Main - [facility] [address], [address], 01/17/2023 18:43:12 Result Notes None recorded. Medical Equipment None Reported. Allergies Allergen ID Allergen Name Allergen Category Reaction Reaction Severity Criticality Documentation Date Start Date Code Code System Note Provider Name and Address Organization Details Recorded Time 8132 Product containin g penicilli n (product) medicatio n Not available Not available Not available 01/19/2024 87980 8001 SNOMED Not Available [facility] - production [...] % 98.1 [degF] 16 /min 74 /min 38737.1 6 g 137 mm[Hg] 83 mm[Hg] Not Available [facility] 3 11:58:27 Date Recorded Oxygen saturation Oxygen saturation in Arterial blood by Pulse oximetry Heart rate Respiratory rate Body temperature Systolic blood pressure Diastolic blood pressure Provider Name and Address Organization Details Last Updated DateTime 3 99 % 99 % 68 /min 16 /min 98 [degF] 110 mm[Hg] 73 mm[Hg] Not Available [facility] [place] [facility] 3 18:36:33 Date Recorded Body weight Oxygen saturation Oxygen saturation in Arterial blood by Pulse oximetry Body temperature Respiratory rate Heart rate Body height Systolic blood pressure Diastolic blood pressure Provider Name and Address Organization Details Last Updated DateTime 4 06377.1 6 g 99 % 99 % 98 [degF] 16 /min 70 /min 154.94 cm 106 mm[Hg] 58 mm[Hg] Not Available [facility] [place] [facility] 4 14:45:13 Date Recorded Heart rate Respiratory rate Body temperature Body weight Oxygen saturation Oxygen saturation in Arterial blood by Pulse oximetry Systolic blood pressure Diastolic blood pressure Provider Name and Address Organization Details Last Updated DateTime 4 74 /min 16 /min 98.2 [degF] 76086.1 6 g 98 % 98 % 122 mm[Hg] 86 mm[Hg] Not Available [facility] 4 15:47:05 Date Recorded Body mass index (BMI) Body height Provider Name and Address Organization Details Last Updated DateTime 03/02/2024 19.8 kg/m2 154.94 cm Anita Davila MD [address] [facility],[address], [place], [phone], [place] [facility] [employer] 03/09/2024 23:46:53 Social History None recorded. Functional Status None recorded. Mental Status None recorded. Family History Nothing Reported. Medical History No medical history recorded. Gynecological HistoryNo gynecological history recorded. Obstetrics History GPAL:G 0 P 0 0 0 0 Past Encounters Encounter ID Performer Location Encounter Start Date Encounter Closed Date Diagnosis/Indication Diagnosis SNOMED-CT Code Diagnosis ICD10 Code Diagnosis Note [id number] Sam Obregon MD Main - [facility] [address] [place] [phone] 10/28/2022 11:58:18 10/28/2022 23:25:33 Acute urinary tract infection 676933579 N39.0 This 72-year-ol d female has had mild UTI symptoms for several days, but her U/A is negative. I ordered a U/C, and recommende d that she push fluids and follow-up with her PCP in two days for the U/C results. She will call back if her symptoms worsen. The patient agreed with this plan. [id number] Laura Hong MD Main - [facility] [address] [place] [id number] 01/17/2023 18:36:28 01/19/2023 12:59:34 Nausea and vomiting 13669338 R11.2 Evaluation in the field was performed by my aquaculture and fisheries professor colleague, as noted above, I provided real-time [...] shortness of breath, cough, chest pain, fever. [id number] Belle Fountain MD Main - [facility] [address] [place] [phone] 07/25/2023 14:45:11 07/26/2023 12:38:13 Abdominal pain 52349386 R10.9 72 year old patient with Hank [...] assessment and plan as documented by the aquaculture and fisheries professor. I provided real-time medical direction for this encounter and was immediatel y available to provide additional phone-base d assistance as needed. We discussed the diagnostic uncertaint y of home visits and associated risks. We discussed the need to seek care urgently/e mergently in the setting of any new or worsening symptoms. [id number] Anita Davila MD Main - [facility] [address] [place] [id number] 03/02/2024 15:47:03 03/03/2024 00:12:39 Mass of skin 104107886 R22.9 Health Concerns Section Related Observation LastModified by Organization Detai ls LastModified Time None Recorded Concern Status LastModified by Organization Details LastModified Time None Recorded Advance Directives Directive None Recorded Payers Encounter Date Sequence Insurance Name Policy Number Policy Marcum Covered Member ID Marcum Member ID Guarantor Name 10/28/2022 1 [facility] - DOS ON OR AFTER 2022 - DUAL ELIGIBLE - ALF OPTIONS AND ONE CARE (MEDICARE REPLACEMENT/ADV ANTAGE - HMO) Stephie Lombardo [id number] Stephie Lombardo 01/17/2023 1 [facility] - DOS ON OR AFTER 2022 - DUAL ELIGIBLE - ALF OPTIONS AND ONE CARE (MEDICARE REPLACEMENT/ADV ANTAGE - HMO) Stephie Lombardo [id number] Stephie Perezn 07/25/2023 1 [facility] - DOS ON OR AFTER 2022 - DUAL ELIGIBLE - ALF OPTIONS AND ONE CARE (MEDICARE REPLACEMENT/ADV ANTAGE - HMO) Stephie Grupo [id number] Stephiethong Beeelizabet 03/02/2024 1 [facility] - DOS ON OR AFTER 2022 - DUAL ELIGIBLE - ALF OPTIONS AND ONE CARE (MEDICARE REPLACEMENT/ADV ANTAGE - HMO) Stephie Grupo [id number] Stephie Beeelizabet Notes Date Note Type Note [...] like to be evalauted. Sam Obregon MD [address] [place] [address],[address], [place], [phone], [facility] 10/28/2022 12:02:41 01/17/2023 text/html [facility] Nursing Assessment: [...] ...................... ...................... ...................... ...................... ...................... ...................... ......... Manager Of Financial Planning Note From Ezequiel Davenport: Pt reports that [...] pt given 4mg of zofran and cleared. Manager Of Financial Planning Allergies: Penicillin ...................... ...................... ...................... ...................... ...................... ...................... ......... Disposition: Fulfilled Laura Hong MD [address] [place] [address],[address], [place], [phone], [employer] [facility] [employer] 01/17/2023 19:18:11 07/25/2023 text/html [facility] Nurse Triage Notes (Tavares Puente): Chief Complaints: Abdominal Pain Allergies: Penicillin Comments: Forestry Tree Pruner verified the member's name//address and phone number. [...] ...................... ...................... ...................... ...................... ...................... ...................... ......... Manager Of Financial Planning Note From Brandon Bustillo: Pt reports sharp [...] non tender, non distended. No LE edema. [facility] spoke directly to pt addressing all concerns. Pt to f/u with PCP on Thursday and provide a stool sample to the PCP. Pt instructed to seek emergent medical care for new or worsening sx, which are reviewed with her. ...................... ...................... ...................... ...................... ...................... ...................... ......... Disposition: Charo Fountain MD [address] [facility],[address], [place], [address], [facility] 07/25/2023 15:22:05 03/02/2024 text/html HPI: Patient with [...] ...................... ...................... ...................... ...................... ...................... ...................... ......... Manager Of Financial Planning Note From Home Pichardo: Pt co pink [...] concerned due to up coming trip to [facility]. Baseline vitals assessed. [facility] contacted and advised pt to monitor and if worsens to contact PCP for further exam. Pt requested insted contact her care team and advised them. [facility] sts will contact care team.Pt education on signs indicating the ER. ...................... ...................... ...................... ...................... ...................... ...................... ......... [facility] Consulted: Vashti Yañez ...................... ...................... ...................... ...................... ...................... ...................... ......... Disposition: Fulfilled Anita Davila MD [address] [facility],[address], [place], [address], [employer] [employer] 03/10/2024 10:52:28 OBGyn Episode No OBEpisode recorded.
== END ==
LOC: HO.CARD 12:34
PROVIDERS: PCP Nurse Practitioner Family; Visit Provider Internal Medicine
DX: R94.31 Abnormal electrocardiogram [ECG] [EKG] (principal)
CPT/HCPCS: 93306

== ENCOUNTER → 2024-06-07 12:38 | Outpatient (BNV) | payer OTHER, SELFPAY | PROVIDERS: PCP Nurse Practitioner Family; Visit Provider Internal Medicine Cardiovascular Disease | DX: R94.31 Abnormal electrocardiogram [ECG] [EKG] (principal) | CPT/HCPCS: 93306 ==

== ENCOUNTER → 2024-07-05 10:02 | Outpatient (REF) | payer OTHER, SELFPAY ==
--- NOTE | 2024-07-05 10:04 | CA_ITS ---
Acquisition Time: 2024-07-05 10:10:50 Total Exercise Time: 00:05:30 Test Indications: cp Medications: SEE H&P Protocol: MIN Max HR: 131 BPM 89% of Pred: 147 BPM Max BP: 150/82 mmHG Max Work Load: 7.0 METS Exercise stress test with exercise 5 mins 30 secs of Min Protocol, achieving 90% MPHR, with reports of mild dizziness with blurry vision ( not new for pt) and palpitations, no chest pain, with isolated PACs, with normotensive response to exercise. Without EKG changes meeting criteria for ischemia. In recovery, pt feeling back to baseline. Test reviewed with Dr. Piper. Referred By: Reji Barahona Electronically Signed By: Vipul Street
--- OUTSIDE RECORDS SUMMARY | 2024-07-05 11:40 | XMS_ITS | Data Portability ---
Author Organization [employer] Address [address] [place] [address] Care Team Providers Care Commuter Pilot Name Role Phone HIM [facility] OTHER [facility] OTHER Assessment Encounter Date Assessment Date Assessment LastModified by Organization Details LastModified Time 03/02/2024 03/02/2024 I provided real -time medical direction via phone for this encounter and was available for additional phone-based assistance as needed. I have reviewed and agree with the Assessment and Plan as documented by the Instructor Industrial Design. Patient given the opportunity to ask questions. 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 She calls this service as she is going out of town on Thursday to [facility] and wants to know if it is safe to travel. She called her PCP's office who was unable to see her and referred her to this service. Unfortunately due to technical issues the pictures of the lesion were unable to be uploaded. The patient denies trauma. She noticed a small pink round ambler on the anterior surface of her correa that is essentially nontender to palpation over the past 24 hours. She denies any bites from bugs. Again denies trauma. It is not pruritic. It is not painful necessarily. She denies having this anywhere else on her body. Per door hanger on the scene, vital signs are stable [...] None recorded. Lab urinalysis, dipstick [address] [address] [facility] [address], [address] [place] [address], [id number] 18:43:31 culture, urine 2022 023 [facility], [address] [place] [address], [place], [address], 17:33:19 Referral None recorded. Procedures None recorded. Surgeries None recorded. Imaging None recorded. Medication Orders ondansetron 4 mg disintegrat ing tablet 2022 023 [facility][id number], [address] [place], [place], [id number], 18:43:40 ondansetron 4 mg disintegrat ing tablet 2022 023 [facility] #[id number], [address], [place], [id number], 18:43:31 Patient TargetsNo targets recorded. Patient InstructionsNo instructions recorded. Reason for Referral None Reported. Results Created Date Observation Date Name Description Value Unit Range Abnormal Flag Note LastModifiedBy Organization Detail LastModifiedTime 10/29/1910/30/2022 CULTU RE, URINE , ROUTI NE culture, urine, routine SEE NOTE CULTU RE, URINE , ROUTI NE Micro Numbe r: [id number] Test Statu s: Final Speci men Sourc e: Not given Speci men Quali ty: Adequ ate Resul t: No Growt h Not Available [facility] [facility] [address], [place], [address], 10/30/2022 17:33:19 01/18/2001/17/2023 urina lysis , dipst ick Leukocytes neg Not Available Main - Inst[facility] [address] [place] [address], [address] [place] [address] 01/17/2023 18:43:12 01/18/2001/17/2023 urina lysis , dipst ick Nitrite negati ve Not Available Main - Inst [address], [address] [place] [address] 01/17/2023 18:43:12 01/18/2001/17/2023 urina lysis , dipst ick Protein + Not Available Main - Ins [address], [address] 01/17/2023 18:43:12 01/18/2001/17/2023 urina lysis , dipst ick Blood neg Not Available Main - Ins [address], [address] 01/17/2023 18:43:12 01/18/2001/17/2023 urina lysis , dipst ick Ketone + Not Available Main - Ins [address], [address] 01/17/2023 18:43:12 01/18/2001/17/2023 urina lysis , dipst ick Glucose neg Not Available Main - Ins [address], [address] 01/17/2023 18:43:12 Result Notes None recorded. Medical Equipment None Reported. Allergies Allergen ID Allergen Name Allergen Category Reaction Reaction Severity Criticality Documentation Date Start Date Code Code System Note Provider Name and Address Organization Details Recorded Time 8132 Product containin g penicilli n (product) medicatio n Not available Not available Not available 01/19/2024 98418 0961 SNOMED Not Available [facility] - production 4 [...] % 98.1 [degF] 16 /min 74 /min 21722.1 6 g 137 mm[Hg] 83 mm[Hg] Not Available [facility] - production 3 11:58:27 Date Recorded Oxygen saturation Oxygen saturation in Arterial blood by Pulse oximetry Heart rate Respiratory rate Body temperature Systolic blood pressure Diastolic blood pressure Provider Name and Address Organization Details Last Updated DateTime 3 99 % 99 % 68 /min 16 /min 98 [degF] 110 mm[Hg] 73 mm[Hg] Not Available [employer] - production 3 18:36:33 Date Recorded Body weight Oxygen saturation Oxygen saturation in Arterial blood by Pulse oximetry Body temperature Respiratory rate Heart rate Body height Systolic blood pressure Diastolic blood pressure Provider Name and Address Organization Details Last Updated DateTime 4 10263.1 6 g 99 % 99 % 98 [degF] 16 /min 70 /min 154.94 cm 106 mm[Hg] 58 mm[Hg] Not Available [facility] - production 4 14:45:13 Date Recorded Heart rate Respiratory rate Body temperature Body weight Oxygen saturation Oxygen saturation in Arterial blood by Pulse oximetry Systolic blood pressure Diastolic blood pressure Provider Name and Address Organization Details Last Updated DateTime 4 74 /min 16 /min 98.2 [degF] 22153.1 6 g 98 % 98 % 122 mm[Hg] 86 mm[Hg] Not Available [employer] [employer] 4 15:47:05 Date Recorded Body mass index (BMI) Body height Provider Name and Address Organization Details Last Updated DateTime 03/02/2024 19.8 kg/m2 154.94 cm Anita Davila MD [address] [place] [address],[address], [place], [address] [employer] [facility] 03/09/2024 23:46:53 Social History None recorded. Functional Status None recorded. Mental Status None recorded. Family History Nothing Reported. Medical History No medical history recorded. Gynecological HistoryNo gynecological history recorded. Obstetrics History GPAL:G 0 P 0 0 0 0 Past Encounters Encounter ID Performer Location Encounter Start Date Encounter Closed Date Diagnosis/Indication Diagnosis SNOMED-CT Code Diagnosis ICD10 Code Diagnosis Note [id number] Sam Obregon MD [facility] [address] [place] [phone] 10/28/2022 11:58:18 10/28/2022 23:25:33 Acute urinary tract infection 659499376 N39.0 This 72-year-ol d female has had mild UTI symptoms for several days, but her U/A is negative. I ordered a U/C, and recommende d that she push fluids and follow-up with her PCP in two days for the U/C results. She will call back if her symptoms worsen. The patient agreed with this plan. [id number] Laura Hong MD Main - instED [address] [place] [phone] 01/17/2023 18:36:28 01/19/2023 12:59:34 Nausea and vomiting 58607961 R11.2 Evaluation in the field was performed by my door hanger colleague, as noted above, I provided real-time [...] shortness of breath, cough, chest pain, fever. [id number] Belle Fountain MD Main - [facility] [address] [place] [phone] 07/25/2023 14:45:11 07/26/2023 12:38:13 Abdominal pain [id number] R10.9 72 year old patient with Hank [...] assessment and plan as documented by the door hanger. I provided real-time medical direction for this encounter and was immediatel y available to provide additional phone-base d assistance as needed. We discussed the diagnostic uncertaint y of home visits and associated risks. We discussed the need to seek care urgently/e mergently in the setting of any new or worsening symptoms. [id number] Anita Davila MD Main - [address] [phone] 03/02/2024 15:47:03 03/03/2024 00:12:39 Mass of skin 208713590 R22.9 Health Concerns Section Related Observation LastModified by Organization Detai ls LastModified Time None Recorded Concern Status LastModified by Organization Details LastModified Time None Recorded Advance Directives Directive None Recorded Payers Encounter Date Sequence Insurance Name Policy Number Policy Marcum Covered Member ID Marcum Member ID Guarantor Name 10/28/2022 1 [facility] [employer] - DOS ON OR AFTER 2022 - DUAL ELIGIBLE - SKILLED NURSING OPTIONS AND ONE CARE (MEDICARE REPLACEMENT/ADV ANTAGE - HMO) Stephie Lombardo [id number] Stephie Lombardo 01/17/2023 1 [facility] [employer] - DOS ON OR AFTER 2022 - DUAL ELIGIBLE - SKILLED NURSING OPTIONS AND ONE CARE (MEDICARE REPLACEMENT/ADV ANTAGE - HMO) Stephie Lombardo [id number] Stpehie Lombardo 07/25/2023 1 [facility] [employer] - DOS ON OR AFTER 2022 - DUAL ELIGIBLE - SKILLED NURSING OPTIONS AND ONE CARE (MEDICARE REPLACEMENT/ADV ANTAGE - HMO) Stephie Lombardo [id number] Stephie Lombardo 03/02/2024 1 [facility] [employer] - DOS ON OR AFTER 2022 - DUAL ELIGIBLE - SKILLED NURSING OPTIONS AND ONE CARE (MEDICARE REPLACEMENT/ADV ANTAGE - HMO) Stephie Lombardo [id number] Stephie Lombardo Notes Date Note Type Note Provider Name [...] like to be evalauted. Sam Obregon MD [address] [facility],[address], [place], [address], [employer] 10/28/2022 12:02:41 01/17/2023 text/html [facility] Nursing Assessment: [...] ...................... ...................... ...................... ...................... ...................... ...................... ......... Instructor Industrial Design Note From Ezequiel Davenport: Pt reports that [...] pt given 4mg of zofran and cleared. Instructor Industrial Design Allergies: Penicillin ...................... ...................... ...................... ...................... ...................... ...................... ......... Disposition: Fulfilled Laura Hong MD [address] [place] [address],[address], [place], [address], [employer] 01/17/2023 19:18:11 07/25/2023 text/html [facility] Nurse Triage Notes (Tavares Puente): Chief Complaints: Abdominal Pain Allergies: Penicillin Comments: Bobcat Driver/Labor verified the member's name//address and phone number. [...] ...................... ...................... ...................... ...................... ...................... ...................... ......... Instructor Industrial Design Note From Brandon Bustillo: Pt reports sharp [...] non tender, non distended. No LE edema. [facility] spoke directly to pt addressing all concerns. Pt to f/u with PCP on Thursday and provide a stool sample to the PCP. Pt instructed to seek emergent medical care for new or worsening sx, which are reviewed with her. ...................... ...................... ...................... ...................... ...................... ...................... ......... Disposition: Fulfilled Belle Fountain MD [address], [place], [address], [employer] 07/25/2023 15:22:05 03/02/2024 text/html HPI: Patient with [...] ...................... ...................... ...................... ...................... ...................... ...................... ......... Instructor Industrial Design Note From Home Pichardo: Pt co pink [...] concerned due to up coming trip to [facility]. Baseline vitals assessed. [facility] contacted and advised pt to monitor and if worsens to contact PCP for further exam. Pt requested insted contact her care team and advised them. [facility] sts will contact care team.Pt education on signs indicating the ER. ...................... ...................... ...................... ...................... ...................... ...................... ......... [facility] Consulted: Vashti Yañez ...................... ...................... ...................... ...................... ...................... ...................... ......... Disposition: Fulfilled Anita Davila MD [address], [place], [address], [employer], [facility] 03/10/2024 10:52:28 OBGyn Episode No OBEpisode recorded.
--- OUTSIDE RECORDS SUMMARY | 2024-07-05 11:40 | XMS_ITS | Encounter Summary ---
Author Organization [employer] Address [address] [place] [address] Care Team Providers Care Automation Engineering Technician Name Role Phone Tami ArmendarizP Primary Care Provider [phone] Kim Mcmullen NP Primary Care Provider [phone] Reason for Visit * Reason Onset Date Comments Nurse Triage 01/19/2023 Encounter Details Date Type Department Care Team ([facility] st Contact Info) Description 01/19/2023 Telephone [facility] MEDICINE [address] [place], [place] [phone] Tami Armendariz FNP [address] [place] [address] Nurse Triage Social History Tobacco Use Types [...] Care Team (Late st Contact Info) Description 08/23/2024 1:45 PM EDT Office Visit [facility] MEDICINE [address] [place], [place] [phone] Kim Mcmullen NP [address] [place] [address] 10/18/2024 11:00 AM EDT Office Visit Jess[facility] Dental [address] [place] [address] Tita Owens LLD [address] [place] [address] documented as of this encounter Visit Diagnoses Not on filedocumented in this encounter Additional Health Concerns Assessment Noted Time PHQ-9 Depression Total Score: 0 12/18/19 23 2:24 PM EDT documented as of this encounter Care Teams Automation Engineering Technician Relationship Specialty Start Date End Date Tami Armendariz FNP [address] [place] [address] PCP - General Family Medicine 12/11/22 10/18/23 Kim Mcmullen NP [address] [place] [phone] PCP - General Family Medicine 10/19/23 documented as of this encounter
--- OUTSIDE RECORDS SUMMARY | 2024-07-05 11:40 | XMS_ITS | Encounter Summary ---
Author Organization [employer] Address [address] [place] [address] Care Team Providers Care Exceptional Children'S Teacher Name Role Phone Tami ArmendarizP Primary Care Provider [phone] Kim Mcmullen NP Primary Care Provider [phone] Reason for Visit * Reason Onset Date Comments Results 09/22/2023 Encounter Details Date Type Department Care Team ([facility] st Contact Info) Description 09/22/2023 Telephone [facility] MEDICINE [address] [place], [place] [phone] Tami Armendariz FNP [address] [place], [place] [phone] Results Social History Tobacco Use Types Packs/Day [...] if PCP wants to send referral for fork truck operator for above concerns. Please review and advise. * Telephone Encounter - iKm Mcmullen NP - 09/25/2023 9:41 AM EDT [...] results: Ultrasound Date when done: 08/30 Facility: [facility] documented in this encounter Plan of Treatment Upcoming Encounters Date Type Department Care Team (Late st Contact Info) Description 08/23/2024 1:45 PM EDT Office Visit [facility] MEDICINE [address] [place] [address] Kim Mcmullen, MIKHAIL [address] [place] [address] 10/18/2024 11:00 AM EDT Office Visit [facility] [address] [place] [address] Tita Owens LLD [address] [place] [address] documented as of this encounter Visit Diagnoses Not on filedocumented in this encounter Additional Health Concerns Assessment Noted Time PHQ-9 Depression Total Score: 0 12/18/19 23 2:24 PM EDT documented as of this encounter Care Teams Exceptional Children'S Teacher Relationship Specialty Start Date End Date Tami Armendariz FNP [address] [place] [address] PCP - General Family Medicine 12/11/22 10/18/23 Kim Mcmullen NP [address] [place] [address] PCP - General Family Medicine 10/19/23 documented as of this encounter
--- OUTSIDE RECORDS SUMMARY | 2024-07-05 11:40 | XMS_ITS | Encounter Summary ---
Author Organization [employer] Address [address] [facility] 7t [place] [address] Care Team Providers Care Structural Iron Worker Name Role Phone MarcelloDanielmarisol FARRARP Primary Care Provider [phone] Kim Mcmullen NP Primary Care Provider [phone] Encounter Details Date Type Department Care Team [...] Description 08/23/2024 1:45 PM EDT Office Visit [facility] MEDICINE [address] [place] [address] Kim Mcmullen, MIKHAIL [address] [place] [address] 10/18/2024 11:00 AM EDT Office Visit Jessi [facility] Dental [address] [place] [address] Tita Owens LLD [address] [place] [address] documented as of this encounter Visit Diagnoses Not on filedocumented in this encounter Care Teams Structural Iron Worker Relationship Specialty Start Date End Date Tami Armendariz FNP [address] [place] [address] PCP - General Family Medicine 12/11/22 10/18/23 Kim Mcmullen NP [address] [place] [address] PCP - General Family Medicine 10/19/23 documented as of this encounter
--- OUTSIDE RECORDS SUMMARY | 2024-07-05 11:40 | XMS_ITS | Clinical Summary ---
Author Organization [employer] Address [address] [place] [address] Care Team Providers Care Performance Test Architect Name Role Phone Kim Mcmullen NP Primary Care Provider [phone] Allergies Active Allergy Reactions Criticality Noted Date [...] Description 04/18/2024 3:45 PM EST Office Visit [facility] MEDICINE [address] [place] [address] Kim Mcmullen NP TMJ (temporomandibular joint disorder) (Primary Dx) 04/18/2024 Travel 04/14/2024 12:00 PM EST Office Visit Jessi [facility] Dental [address] [place] [address] Tita Owens LLD Encounter for dental examination (Primary Dx) 04/06/2024 Telephone [facility] MEDICINE [address] [place] [address] Joanna Oneill MA Chart Prep from Last [...] Description 08/23/2024 1:45 PM EDT Office Visit [facility] MEDICINE [address] [place] [address] Kim Mcmullen NP [address] [place] [address] 10/18/2024 11:00 AM EDT Office Visit Jessi [facility] Dental [address] [place] [address] Tita Owens LLD [address] [place] [address] Health Maintenance Due Date Last Done Comments [...] AM EDT) Hepatitis A IgM Nonreactive Nonreactive [facility] Comment:IgM antibodies to MCLAIN V not detected; does not exclude earlyacute or recovered HAV infection. ~Hepatitis B Surface Antibody NONREACTIVE Nonreactive [facility] Comment:Nonreactive: < 8.00 mIU/mL Hepatitis B Core Antibody Nonreactive Nonreactive [facility] Hepatitis C Antibody Nonreactive Nonreactive [facility] Comment:Antibodies to HCV no t detected; does not exclude early acuteHCV infection. Hepatitis B Surface Ag Negative Negative [facility] Blood Venous blood specimen / Unknown 01/21/2023 11:54 AM EDT 01/21/2023 3:52 PM EDT us Di Archuleta PROBATION SUPERVISOR LAB BLOOD ORDERABLES Final Res ult [facility] [address] [place] [address] [phone] from Last 3 Months or Most Recently Relevant to Health Maintenance Insurance [facility] Care Teams Performance Test Architect Relationship Specialty Start Date End Date Kim Mcmullen NP [address] [place] [address] PCP - General Family Medicine 10/19/23
--- OUTSIDE RECORDS SUMMARY | 2024-07-05 11:40 | XMS_ITS | Encounter Summary ---
Author Organization [employer] Address [address] [facility] 7t [place] [address] Care Team Providers Care Rod Cup Filler Name Role Phone Tami ArmendarizP Primary Care Provider [phone] Kim Mcmullen SECOND LANGUAGE TUTOR Primary Care Provider [phone] Reason for Visit * Reason Onset Date Comments New Patient 11/05/2022 Encounter Details Date Type Department Care Team (Late st Contact Info) Description 11/05/2022 Telephone [facility] MEDICINE [address] [place], [place] [phone] Tami Armendariz FNP [address] [place], [place] [phone] New Patient Social History Tobacco Use Types [...] PAR Candie Conde called pt to Offer SECOND LANGUAGE TUTOR appt. Pt demographics and insurance information were verified. 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 Pt is currently taking medication: Thyroid Medication and a list Anti/ Supplements ( advised to please bring to appt date ) Pt given SECOND LANGUAGE TUTOR appt with Dr. Tami Armendariz on 12/17/2022 @ 2:15 pm. Pt will be sent appt reminder card and medical release form and agrees to complete and to return to medical records prior to SECOND LANGUAGE TUTOR appt. documented in this encounter Plan of Treatment Upcoming Encounters Date Type Department Care Team (Late st Contact Info) Description 08/23/2024 1:45 PM EDT Office Visit [facility] MEDICINE [address] [place] [address] Kim Mcmullen NP [address] [place] [address] 10/18/2024 11:00 AM EDT Office Visit Jessi [facility] Dental [address] [place] [address] Tita Owens LLD [address] [place] [address] documented as of this encounter Visit Diagnoses Not on filedocumented in this encounter Care Teams Rod Cup Filler Relationship Specialty Start Date End Date Tami Armendariz FNP [address] [place] [address] PCP - General Family Medicine 12/11/22 10/18/23 Kim Mcmullen NP [address] [place] [address] PCP - General Family Medicine 10/19/23 documented as of this encounter
--- OUTSIDE RECORDS SUMMARY | 2024-07-05 11:40 | XMS_ITS | Encounter Summary ---
Author Organization [employer] Address [address] [place] [address] Care Team Providers Care Contact Center Agent Name Role Phone Tami ArmendarizP Primary Care Provider [phone] Kim Mcmullen NP Primary Care Provider [phone] Reason for Visit * Reason Onset Date Comments Appointment Request 02/09/2023 Encounter Details Date Type Department Care Team ([facility] st Contact Info) Description 02/09/2023 Telephone [facility] MEDICINE [address] [place], [place] [phone] Tami Armendariz FNP [address] [place], [place] [phone] Appointment Request Social History Tobacco Use Types [...] pt is on a recall for February, editorial writer attempted schedule,no availability at the moment. documented in this encounter Plan of Treatment Upcoming Encounters Date Type Department Care Team (Late st Contact Info) Description 08/23/2024 1:45 PM EDT Office Visit [facility] MEDICINE [address] [place] [address] Kim Mcmullen NP [address] [place] [address] 10/18/2024 11:00 AM EDT Office Visit Jessi [facility] Dental [address] [place] [address] Tita Owens LLD [address] [place] [address] documented as of this encounter Visit Diagnoses Not on filedocumented in this encounter Additional Health Concerns Assessment Noted Time PHQ-9 Depression Total Score: 0 12/18/19 23 2:24 PM EDT documented as of this encounter Care Teams Contact Center Agent Relationship Specialty Start Date End Date Tami Armendariz FNP [address] [place] [address] PCP - General Family Medicine 12/11/22 10/18/23 Kim Mcmullen NP [address] [place] [address] PCP - General Family Medicine 10/19/23 documented as of this encounter
--- OUTSIDE RECORDS SUMMARY | 2024-07-05 11:40 | XMS_ITS | Encounter Summary ---
Author Organization [employer] Address [address] [place] [address] Care Team Providers Care Senior Architectural Designer Name Role Phone Tami ArmendarizP Primary Care Provider [phone] Kim Mcmullen NP Primary Care Provider [phone] Reason for Visit * Reason Onset Date Comments Results 05/20/2023 Encounter Details Date Type Department Care Team ([facility] Contact Info) Description 05/20/2023 Telephone [facility] MEDICINE [address] [place], [place] [phone] Tami Armendariz FNP [address] [place] [address] Results Social History Tobacco Use Types Packs/Day [...] results: labs Date when done: 04/17 Facility: [facility] Please contact pt at [phone] documented in this encounter Plan of Treatment Upcoming Encounters Date Type Department Care Team (Late st Contact Info) Description 08/23/2024 1:45 PM EDT Office Visit [facility] MEDICINE [address] [place] [address] Kim Mcmullen NP [address] [place] [address] 10/18/2024 11:00 AM EDT Office Visit Jessi [facility] Dental [address] [place] [address] Tita Owens LLD [address] [place] [address] documented as of this encounter Visit Diagnoses Not on filedocumented in this encounter Additional Health Concerns Assessment Noted Time PHQ-9 Depression Total Score: 0 12/18/19 23 2:24 PM EDT documented as of this encounter Care Teams Senior Architectural Designer Relationship Specialty Start Date End Date Tami Armendariz FNP [address] [place] [address] PCP - General Family Medicine 12/11/22 10/18/23 Kim Mcmullen NP [address] [place] [address] PCP - General Family Medicine 10/19/23 documented as of this encounter
--- OUTSIDE RECORDS SUMMARY | 2024-07-05 11:40 | XMS_ITS | Clinical Summary ---
Author Organization [facility] it[facility] Address [address] [place] [address] Care Team Providers Care Pantry Cook Name Role Phone Aiden Preston MD Primary Care Provider [phone] Surgical History Surgery Date Site/Laterality Comments OTHER [...] Info) Description 07/19/2024 1:45 PM EDT Appointment [facility] Xray [address] [place] [address] Health Maintenance Due Date Last [...] Influencers of Health Screening 02/22/2022 COVID-19 Vaccine (2023-2 5 season) 2023 Influenza Vaccine (Season Ended) 2024 RSV Immunization Adult Patie nts (1 - 1-dose 75+ series) 2025 HIB [...] age to complete this topic Meningococcal B Vaccine Aged Out No l onger eligible based on patient's age to complete this topic RSV Immunization Patients Un job 20 months Aged Out No longer eligible b ased on patient's age to complete this topic Varicella Vaccines Aged Out No longer eligible based on patient's age to complete this topic Care Teams Pantry Cook Relationship Specialty Start Date End Date Aiden Preston MD [address] [place] PCP - General Internal Medicine 02/01/19
--- OUTSIDE RECORDS SUMMARY | 2024-07-05 11:40 | XMS_ITS | Encounter Summary ---
Author Organization [employer] Address [address] [place] [address] Care Team Providers Care Trauma Manager Name Role Phone Tami ArmendarizP Primary Care Provider [phone] Kim Mcmullen NP Primary Care Provider [phone] Reason for Visit * Reason Onset Date Comments Referral 04/21/2023 Encounter Details Date Type Department Care Team ([facility] st Contact Info) Description 04/21/2023 Telephone [facility] MEDICINE [address] [place], [place] [phone] Tami Armendariz FNP [address] [place], [place] [phone] Referral Social History Tobacco Use Types Packs/Day [...] from [facility] calling to speak with the [place] for the PCP to obtain aInsurance referral script writer did attempt to transfer to direct line but was advised by the crop insurance claims adjuster needs to get referral by the [place] documented in this encounter Plan of Treatment Upcoming Encounters Date Type Department Care Team (Late st Contact Info) Description 08/23/2024 1:45 PM EDT Office Visit [facility] MEDICINE [address] [place] [address] Kim Mcmullen NP [address] [place] [address] 10/18/2024 11:00 AM EDT Office Visit Jessi [facility] Dental [address] [place] [address] Tita Owens LLD [address] [place] [address] documented as of this encounter Visit Diagnoses Not on filedocumented in this encounter Additional Health Concerns Assessment Noted Time PHQ-9 Depression Total Score: 0 12/18/19 23 2:24 PM EDT documented as of this encounter Care Teams Trauma Manager Relationship Specialty Start Date End Date Tami Armendariz FNP [address] [place] [address] PCP - General Family Medicine 12/11/22 10/18/23 Kim Mcmullen NP [address] [place] [address] PCP - General Family Medicine 10/19/23 documented as of this encounter
--- OUTSIDE RECORDS SUMMARY | 2024-07-05 11:40 | XMS_ITS | Encounter Summary ---
Author Organization [employer] Address [address] [facility] 7t [place] [address] Care Team Providers Care Coding Tech Name Role Phone Tami Armendariz Primary Care Provider [phone] Kim Mcmullen NP Primary Care Provider [phone] Encounter Details Date Type Department Care Team ([facility] Contact Info) Description 12/17/2022 Abstract [facility] MEDICINE [address] [place] [phone] Tami Armendariz FNP [address] [place] [phone] Social History Tobacco Use Types Packs/Day Years [...] Upcoming Encounters Date Type Department Care Team ([facility] Contact Info) Description 08/23/2024 1:45 PM EDT Office Visit [facility] MEDICINE [address] [place] [phone] Kim Mcmullen NP [address] [place] [address] 10/18/2024 11:00 AM EDT Office Visit Jessi [facility] Dental [address] [place] [address] Tita Ownes LLD [address] [place] [address] documented as of this encounter Visit Diagnoses Not on filedocumented in this encounter Additional Health Concerns Assessment Noted Time PHQ-9 Depression Total Score: 0 12/18/19 23 2:24 PM EDT documented as of this encounter Care Teams Coding Tech Relationship Specialty Start Date End Date Tami Armendariz FNP [address] [place] [address] PCP - General Family Medicine 12/11/22 10/18/23 Kim Mcmullen NP [address] [place] [address] PCP - General Family Medicine 10/19/23 documented as of this encounter
--- OUTSIDE RECORDS SUMMARY | 2024-07-05 11:40 | XMS_ITS | Encounter Summary ---
Author Organization [employer] Address [address] [place] [address] Care Team Providers Care Shoe Singer Name Role Phone Tami ArmendarizP Primary Care Provider [phone] Kim Mcmullen ORGANIZATIONAL EFFECTIVENESS CONSULTANT Primary Care Provider [phone] Encounter Details Date Type Department Care Team (Late st Contact Info) Description 02/11/2023 Abstract [facility] MEDICINE [address] [place] [address] Christina Murry Social History Tobacco Use Types [...] Description 08/23/2024 1:45 PM EDT Office Visit [facility] MEDICINE [address] [place] [address] Kim Mcmullen NP [address] [place] [address] 10/18/2024 11:00 AM EDT Office Visit Jessi [facility] Dental [address] [place] [address] Tita Owens LLD [address] [place] [address] documented as of this encounter Procedures Procedure Name Priority Date/Time Associated Diagnosis Comments PAP/HPV Routine 01/28/2023 documented in this encounter Results * Pap Smear (01/28/2023) Pap Negative for intraephithelial lesion or malignancy Negative for intraephithelial lesion or malignancy, Other HPV Undetected Undetected, Indeterminate, Quantitative, Not Detected us Historical Provider HEALTH MAINTENANCE Final Result documented in this encounter Visit Diagnoses Not on filedocumented in this encounter Additional Health Concerns Assessment Noted Time PHQ-9 Depression Total Score: 0 12/18/19 23 2:24 PM EDT documented as of this encounter Care Teams Shoe Singer Relationship Specialty Start Date End Date Tami Armendariz FNP [address] [place] [address] PCP - General Family Medicine 12/11/22 10/18/23 Kim Mcmullen NP [address] [place] [address] PCP - General Family Medicine 10/19/23 documented as of this encounter
== END ==
LOC: HO.CARD 10:02
PROVIDERS: PCP Nurse Practitioner Family; Visit Provider Internal Medicine
DX: R07.2 Precordial pain (principal); R94.31 Abnormal electrocardiogram [ECG] [EKG]
CPT/HCPCS: 93017

== ENCOUNTER → 2024-07-05 10:04 | Outpatient (BNV) | payer OTHER, SELFPAY | PROVIDERS: PCP Nurse Practitioner Family | DX: I49.1 Atrial premature depolarization (principal) | CPT/HCPCS: 93016; 93018 ==

== ENCOUNTER 2024-07-26 09:35 | Outpatient (AMB) | payer OTHER, SELFPAY ==
[2024-07-26 09:59] VITALS: BP 122/60; PULSE 62; BMI 20.1
--- NOTE | 2024-07-26 09:59 | MHC.OFFVIS ---
Vital Signs 07/26/24 09:59 Height 5 ft Weight 102 lb 11.767 oz BMI 20.1 BP 122/60 Blood Pressure Location Rt brachial Position Sitting Pulse 62 Pulse Source Pulse Oximeter Intake Visit Reasons: f/up tilt/ echo/ nuc Allergies Penicillins Allergy (Mild, Verified 07/26/24 10:02) Hives Medication List - Last Reconciled 07/26/24 by Ines Ugarte, SALES [employer] levothyroxine PO DAILY liothyronine 25 mcg PO DAILY HPI HPI f/up tilt/ echo/ nuc: Details: Stephie is a 73-year-old female with past medical history of orthostatic hypotension, Hank-Danlos syndrome, who was recently evaluated for multi symptoms including heart palpitations, lightheadedness, fatigue. She underwent cardiac evaluation with echocardiogram and stress test and now presents for follow-up. A tilt-table test has been ordered however not completed as of yet. Today she reports that she has increased her salt intake and some of her lightheadedness has improved. Her blood pressure today is 122/60 which she states is high for her. She has not had any presyncope, syncope, falls. She does get heart palpitations which occur during activities. Vague reports of chest discomfort and chronic fatigue. She has ongoing issues with brain fog and some forgetfulness. 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 She describes that most of her symptoms occurred post COVID vaccines. She is following with her PCP and a patching machine operator. She follows a vegan diet and tries to remain physically active. She tells me she is going to [place] for 3 weeks on September 06. At this time her tilt-table test is currently scheduled for September. [facility] Medical History (Updated 07/26/24 @ 10:42 by Ines Ugarte, SALES AG[employer]) Orthostatic hypotension Osteoporosis Scoliosis GERD (gastroesophageal reflux disease) Depressive disorder Asthma Family History Mother Ovarian cancer Father Alcoholism Brother Prostate cancer Maternal Grandfather Heart attack Social History Alcohol intake: former Patient Tobacco Use Status: Former Tobacco user Review of Systems Const All systems reviewed & are unremarkable except as noted in HPI and below Reports fatigue, Reports lethargy and Reports malaise ENT Reports dizziness Card Denies chest pain, Denies chest pain at rest, Denies chest pain with activity, Denies rapid heart rate, Denies pedal edema, Denies edema, Denies leg edema, Denies lightheadedness, Denies palpitations, Denies dyspnea, Denies dyspnea on exertion and Denies orthopnea Resp Denies cough, Denies dyspnea and Denies dyspnea on exertion GI Denies hematochezia and Denies change in stool character Musc Denies abnormal gait, Reports limited range of motion, Reports muscle cramps, Denies muscle weakness, Denies numbness, Denies radiating pain into limb, Denies stiffness and Denies tingling Skin/Breast Details: hives randomly occur Neuro Denies abnormal gait, Reports dizziness, Denies numbness and Denies tingling Endo Reports fatigue and Denies palpitations Physical Exam Vital Signs: Last Vital Signs Pulse 62 07/26/24 09:59 BP 122/60 07/26/24 09:59 BMI result Body Mass Index 20.1 Const General: cooperative, healthy appearing, comfortable and no acute distress Orientation/consciousness: patient oriented x3 HEENT Head: Yes normal to inspection Neck Neck: Yes normal visual inspection Resp Effort & Inspection: normal respiratory effort Auscultation: clear to auscultation bilaterally, no rales, no rhonchi and no wheezes Cardio Jugular venous distension: no JVD Rate: regular rate Rhythm: regular rhythm Heart sounds: S1 normal heart sound present, S2 normal heart sound present, no murmurs and no rubs Neuro General: patient oriented x3 Extrem General: Yes normal to inspection and No no pedal edema Psych Appearance: grossly normal Mental Status: mental status grossly normal Speech and movement: Normal speech and movement present Assessment & Plan Assessment & Plan (1) Dizziness: Code(s): R42 - Dizziness and giddiness Category: Medical Plan: Multi symptoms including lightheadedness, heart palpitations, fatigue. She has had low blood pressures in the past, with orthostatic readings, which improved some with increased salt intake. Echocardiogram done 06/07/2024 shows EF 65-70%, impaired relaxation, normal valves and normal RV. Instructed to use caution when going sitting to standing, maintain good hydration, continue use of added salt, wear compression stockings. Complete tilt-table test as scheduled. Cardiology follow-up 3 months, sooner if needed. (2) Abnormal EKG: Code(s): R94.31 - Abnormal electrocardiogram [ECG] [EKG] Category: Medical Plan: Her EKG does show septal Q-wave. No known cardiac history. She did have echocardiogram which shows normal EF and wall motion. Exercise stress test 07/05/2024 with exercise 5.5 minutes with symptoms of lightheadedness and heart palpitations with no EKG changes of ischemia. Test results reviewed with her. Septal Q-wave could be related to lead placement. Plan Time spent on chart review, documentation, interview and assessment Coding Level of Care Code Est Pt Level 4 (01887) Complex EM visit Add On G2211 Diagnoses Dizziness R42 Abnormal EKG R94.31 Time Spent (min) 32
--- OUTSIDE RECORDS SUMMARY | 2024-07-26 10:35 | XMS_ITS | Data Portability ---
Author Organization [employer] Address [address] [place] [address] Care Team Providers Care Exterminator Termite Name Role Phone HIM [facility] OTHER [facility] OTHER Assessment Encounter Date Assessment Date Assessment LastModified by Organization Details LastModified Time 03/02/2024 03/02/2024 I provided real -time medical direction via phone for this encounter and was available for additional phone-based assistance as needed. I have reviewed and agree with the Assessment and Plan as documented by the Transportation Maintenance Supervisor. Patient given the opportunity to ask questions. 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 She calls this service as she is going out of town on Thursday to [facility] and wants to know if it is safe to travel. She called her PCP's office who was unable to see her and referred her to this service. Unfortunately due to technical issues the pictures of the lesion were unable to be uploaded. The patient denies trauma. She noticed a small pink round [place] on the anterior surface of her correa that is essentially nontender to palpation over the past 24 hours. She denies any bites from bugs. Again denies trauma. It is not pruritic. It is not painful necessarily. She denies having this anywhere else on her body. Per motor builder assembler on the scene, vital signs are stable [...] None recorded. Lab urinalysis, dipstick 2022 023 [facility], [address] [place] [address], [id number] 18:43:31 culture, urine 2022 023 [facility], [address] [place] [address], [place], [address], 17:33:19 Referral None recorded. Procedures None recorded. Surgeries None recorded. Imaging None recorded. Medication Orders ondansetron 4 mg disintegrat ing tablet 2022 023 NOW[facility] [employer] #[id number], [address] [place], [place], [id number], 18:43:40 ondansetron 4 mg disintegrat ing tablet 2022 023 [facility] M[facility] #[id number], [address], [place], [id number], 18:43:31 Patient TargetsNo targets recorded. Patient InstructionsNo instructions recorded. Reason for Referral None Reported. Results Created Date Observation Date Name Description Value Unit Range Abnormal Flag Note LastModifiedBy Organization Detail LastModifiedTime 10/29/1910/30/2022 CULTU RE, URINE , ROUTI NE culture, urine, routine SEE NOTE CULTU RE, URINE , ROUTI NE Micro Numbe r: [id number] Test Statu s: Final Speci men Sourc e: Not given Speci men Quali ty: Adequ ate Resul t: No Growt h Not Available [facility] [address], [place], [address], 10/30/2022 17:33:19 01/18/2001/17/2023 urina lysis , dipst ick Leukocytes neg Not Available Main - [facility] [address] [place] [address], [address] [place] [address] 01/17/2023 18:43:12 01/18/2001/17/2023 urina lysis , dipst ick Nitrite negati ve Not Available Main - Inst [address], [address] [place] [address] 01/17/2023 18:43:12 01/18/2001/17/2023 urina lysis , dipst ick Protein + Not Available Main - Ins [address], [address] 01/17/2023 18:43:12 01/18/2001/17/2023 urina lysis , dipst ick Blood neg Not Available Main - Ins [address], [address] 01/17/2023 18:43:12 01/18/2001/17/2023 urina lysis , dipst ick Ketone + Not Available Main - Ins [address], [address] 01/17/2023 18:43:12 01/18/2001/17/2023 urina lysis , dipst ick Glucose neg Not Available Main - Ins [address], [id number] 01/17/2023 18:43:12 Result Notes None recorded. Medical Equipment None Reported. Allergies Allergen ID Allergen Name Allergen Category Reaction Reaction Severity Criticality Documentation Date Start Date Code Code System Note Provider Name and Address Organization Details Recorded Time 8132 Product containin g penicilli n (product) medicatio n Not available Not available Not available 01/19/2024 08049 4096 SNOMED Not Available [employer] - production 4 [...] % 98.1 [degF] 16 /min 74 /min 99552.1 6 g 137 mm[Hg] 83 mm[Hg] Not Available [facility] - production 3 11:58:27 Date Recorded Oxygen saturation Oxygen saturation in Arterial blood by Pulse oximetry Heart rate Respiratory rate Body temperature Systolic blood pressure Diastolic blood pressure Provider Name and Address Organization Details Last Updated DateTime 3 99 % 99 % 68 /min 16 /min 98 [degF] 110 mm[Hg] 73 mm[Hg] Not Available [employer] [facility] - production 3 18:36:33 Date Recorded Body weight Oxygen saturation Oxygen saturation in Arterial blood by Pulse oximetry Body temperature Respiratory rate Heart rate Body height Systolic blood pressure Diastolic blood pressure Provider Name and Address Organization Details Last Updated DateTime 4 18815.1 6 g 99 % 99 % 98 [degF] 16 /min 70 /min 154.94 cm 106 mm[Hg] 58 mm[Hg] Not Available [employer] [facility] - production 4 14:45:13 Date Recorded Heart rate Respiratory rate Body temperature Body weight Oxygen saturation Oxygen saturation in Arterial blood by Pulse oximetry Systolic blood pressure Diastolic blood pressure Provider Name and Address Organization Details Last Updated DateTime 4 74 /min 16 /min 98.2 [degF] 71574.1 6 g 98 % 98 % 122 mm[Hg] 86 mm[Hg] Not Available [employer] [facility] [employer] 4 15:47:05 Date Recorded Body mass index (BMI) Body height Provider Name and Address Organization Details Last Updated DateTime 03/02/2024 19.8 kg/m2 154.94 cm Anita Davila MD [address] [place] [address],[address], [place], [address] [email or web address] [facility] 03/09/2024 23:46:53 Social History None recorded. Functional Status None recorded. Mental Status None recorded. Family History Nothing Reported. Medical History No medical history recorded. Gynecological HistoryNo gynecological history recorded. Obstetrics History GPAL:G 0 P 0 0 0 0 Past Encounters Encounter ID Performer Location Encounter Start Date Encounter Closed Date Diagnosis/Indication Diagnosis SNOMED-CT Code Diagnosis ICD10 Code Diagnosis Note [id number] Sam Obregon MD [facility] [employer] [address] [place] [phone] 10/28/2022 11:58:18 10/28/2022 23:25:33 Acute urinary tract infection 400641033 N39.0 This 72-year-ol d female has had mild UTI symptoms for several days, but her U/A is negative. I ordered a U/C, and recommende d that she push fluids and follow-up with her PCP in two days for the U/C results. She will call back if her symptoms worsen. The patient agreed with this plan. [id number] Laura Hong MD Main - [facility] [address] [place] [phone] 01/17/2023 18:36:28 01/19/2023 12:59:34 Nausea and vomiting [id number] R11.2 Evaluation in the field was performed by my motor builder assembler colleague, as noted above, I provided real-time [...] shortness of breath, cough, chest pain, fever. [id number] Belle Fountain MD Main - [facility] [address] [place] [phone] 07/25/2023 14:45:11 07/26/2023 12:38:13 Abdominal pain [id number] R10.9 72 year old patient with Hank [...] assessment and plan as documented by the motor builder assembler. I provided real-time medical direction for this encounter and was immediatel y available to provide additional phone-base d assistance as needed. We discussed the diagnostic uncertaint y of home visits and associated risks. We discussed the need to seek care urgently/e mergently in the setting of any new or worsening symptoms. [id number] Vashti Yañez MD Main - [address] [phone] 03/02/2024 15:47:03 03/03/2024 00:12:39 Mass of skin 871619242 R22.9 Health Concerns Section Related Observation LastModified by Organization Detai ls LastModified Time None Recorded Concern Status LastModified by Organization Details LastModified Time None Recorded Advance Directives Directive None Recorded Payers Encounter Date Sequence Insurance Name Policy Number Policy Marcum Covered Member ID Marcum Member ID Guarantor Name 10/28/[address] [facility] - DOS ON OR AFTER 2022 - DUAL ELIGIBLE - LONG-TERM OPTIONS AND ONE CARE (MEDICARE REPLACEMENT/ADV ANTAGE - HMO) Stephie Lombardo [id number] Stephie Lombardo 01/17/[address] [facility] [employer] - DOS ON OR AFTER 2022 - DUAL ELIGIBLE - LONG-TERM OPTIONS AND ONE CARE (MEDICARE REPLACEMENT/ADV ANTAGE - HMO) Stephie Lombardo [id number] Stephie Lombardo 07/25/[address] [facility] [employer] - DOS ON OR AFTER 2022 - DUAL ELIGIBLE - LONG-TERM OPTIONS AND ONE CARE (MEDICARE REPLACEMENT/ADV ANTAGE - HMO) Stephie Lombardo [id number] Stephie Lombardo 03/02/2024 1 [facility] [employer] - DOS ON OR AFTER 2022 - DUAL ELIGIBLE - LONG-TERM OPTIONS AND ONE CARE (MEDICARE REPLACEMENT/ADV ANTAGE - HMO) Stephie Lombardo [id number] Stephie Lombardo Notes Date Note Type Note [...] like to be evalauted. Sam Obregon MD [address] [place] [address],[address], [place], [address], [employer] 10/28/2022 12:02:41 01/17/2023 text/html [facility] Nursing Assessment: [...] ...................... ...................... ...................... ...................... ...................... ...................... ......... Transportation Maintenance Supervisor Note From Ezequiel Davenport: Pt reports [...] pt given 4mg of zofran and cleared. Transportation Maintenance Supervisor Allergies: Penicillin ...................... ...................... ...................... ...................... ...................... ...................... ......... Disposition: Fulfilled Laura Hong MD [address] [place] [address],[address], [place], [address], [employer] 01/17/2023 19:18:11 07/25/2023 text/html [facility] Nurse Triage Notes (Tavares Puente): Chief Complaints: Abdominal Pain Allergies: Penicillin Comments: Furnace Liner verified the member's name//address and phone number. [...] ...................... ...................... ...................... ...................... ...................... ...................... ......... Transportation Maintenance Supervisor Note From Brandon Bustillo: Pt reports [...] non tender, non distended. No LE edema. [facility] spoke directly to pt addressing all concerns. Pt to f/u with PCP on Thursday and provide a stool sample to the PCP. Pt instructed to seek emergent medical care for new or worsening sx, which are reviewed with her. ...................... ...................... ...................... ...................... ...................... ...................... ......... Disposition: Fulfilled Belle Fountain MD [address] [facility],[address], [place], [address], [employer] 07/25/2023 15:22:05 03/02/2024 text/html HPI: Patient with [...] ...................... ...................... ...................... ...................... ...................... ...................... ......... Transportation Maintenance Supervisor Note From Home Pichardo: Pt co [...] to up coming trip to [facility]. Baseline vitals assessed. [facility] contacted and advised pt to monitor and if worsens to contact PCP for further exam. Pt requested insted contact her care team and advised them. [facility] sts will contact care team.Pt education on signs indicating the ER. ...................... ...................... ...................... ...................... ...................... ...................... ......... [facility] Consulted: Vashti Yañez ...................... ...................... ...................... ...................... ...................... ...................... ......... Disposition: Fulfilled Anita Davila MD [address] [facility],[address] [facility], [place], [address], [facility], [employer] 03/10/2024 10:52:28 OBGyn Episode No OBEpisode recorded.
--- OUTSIDE RECORDS SUMMARY | 2024-07-26 10:35 | XMS_ITS | Clinical Summary ---
Author Organization [facility] Address [address] [place] [address] Phone Care Team Providers Care Stock Blender Name Role Phone Kim Mcmullen RIGOBERTO Primary Care Provider Surgical History Surgery Date [...] Care Team (Late st Contact Info) Description 09/27/2024 1:00 PM EDT Appointment [facility] Xray [address] [place] [address] Health Maintenance Due Date Last Done Comments Breast Cancer Screening 1950 DTaP,Tdap,and Td Vaccines (1 - Tdap) 1969 Pneumococcal Vaccine: 50+ Ye ars (1 of 1 - PCV) 2000 Zoster Vaccines (1 of 2) 2000 Colorectal Cancer Screening: Colonoscopy 02/22/2022 Depression Screening 02/22/2022 Falls Risk Assessment 02/22/2022 Hepatitis C Screening 02/22/2022 Medicare Annual Wellness Visit 02/22/2022 Osteoporosis Screening (Bone Density Screening) 02/22/2022 [...] on patient's age to complete this topic [place] [address] [place] [address] MEDICARE Member Subscriber Plan / Payer (Ef fective 2024-Present) Name:Stephie Lombardo Member ID:[id number] Relation to Subscriber:Self Name:Stephie Lombardo Subscriber ID:[id number] Payer ID:[id number] Group ID:Not on file Type:Not on file Address: [address] [place] [address] MEDICA[place] - [place] Care Teams Stock Blender Relationship Specialty Start Date End Date Kim Mcmullen FNP [address] [place] [address] PCP - General Nurse Practitioner 07/18/24
--- OUTSIDE RECORDS SUMMARY | 2024-07-26 10:35 | XMS_ITS | Clinical Summary ---
Author Organization [employer] Address [address] [place] [address] Care Team Providers Care Space Control Supervisor Name Role Phone Kim Mcmullen NP Primary Care Provider [phone] Allergies Active Allergy Reactions Criticality Noted Date [...] few squamous cells; repeat in 1 yr Immunizations Name Administration Dates Next Due Pfizer [...] Office Visit [facility] MEDICINE [address] [place] [address] Kim Mcmullen, MIKHAIL [address] [place] [address] 10/18/2024 11:00 AM EDT Office Visit Jessi [facility] Dental [address] [place] [address] Tita Owens LLD [address] [place] [address] Health Maintenance Due Date Last Done Comments [...] (#1) 2023 Depression Screening 12/18/2023 12/17/2022, 12/18/19 23 Dental Prophylaxis 01/10/2024 07/10/2023, 0 11/27/2022, 03/06/2021, Additional history exists Dental X-Ray: Full Mouth 02/01/2024 021, 11/22/2020, 06/26/2017 Dental Oral Exam 10/13/2024 04/14/2024, , 11/27/2022, Additional history exists Alcohol/Substance Use Screening 12/17/2024 12/18/2023 SDOH Screening 12/17/2024 12/18/2023 Dental X-Ray: Bitewings 04/15/2025 04/14/19 25, 11/27/2022, 11/22/2020, Additional history exists Tobacco Screening [...] Procedure Name Priority Date/Time Associated Diagnosis Comments BITEWINGS - 4 RADIOGRAPHIC IMAGES Routine 04/14/2024 [...] AM EDT) Hepatitis A IgM Nonreactive Nonreactive [facility] Comment:IgM antibodies to MCLAIN V not detected; does not exclude earlyacute or recovered HAV infection. ~Hepatitis B Surface Antibody NONREACTIVE Nonreactive [facility] Comment:Nonreactive: < 8.00 mIU/mL Hepatitis B Core Antibody Nonreactive Nonreactive [facility] Hepatitis C Antibody Nonreactive Nonreactive [facility] Comment:Antibodies to HCV no t detected; does not exclude early acuteHCV infection. Hepatitis B Surface Ag Negative Negative [facility] Blood Venous blood specimen / Unknown 01/21/2023 11:54 AM EDT 01/21/2023 3:52 PM EDT us Di Archuleta ASSEMBLING INSPECTOR LAB BLOOD ORDERABLES Final Res ult [facility] [address] [place] [address] [phone] from Last 3 Months or Most Recently Relevant to Health Maintenance Insurance [facility] SKILLED NURSING OPTIONS (HMO D-SNP) DENTAL - [facility] Care Teams Space Control Supervisor Relationship Specialty Start Date End Date Kim Mcmullen NP [address] [place] [address] PCP - General Family Medicine 10/19/23
--- OUTSIDE RECORDS SUMMARY | 2024-07-26 10:35 | XMS_ITS | Encounter Summary ---
Author Organization [employer] Address [address] [place] [address] Care Team Providers Care Dishwasher Preparer Name Role Phone Tami ArmendarizP Primary Care Provider [phone] Kim Mcmullen NP Primary Care Provider [phone] Reason for Visit * Reason Onset Date Comments Results 09/22/2023 Encounter Details Date Type Department Care Team ([facility] st Contact Info) Description 09/22/2023 Telephone [facility] MEDICINE [address] [place], [place] [phone] Tami Armendariz FNP [address] [place], [place] [phone] Results Social History Tobacco Use Types Packs/Day [...] if PCP wants to send referral for comprehensive ophthalmologist for above concerns. Please review and advise. [...] results: Ultrasound Date when done: 08/30 Facility: [facility] documented in this encounter Plan of Treatment Upcoming Encounters Date Type Department Care Team (Late st Contact Info) Description 08/23/2024 1:45 PM EDT Office Visit [facility] MEDICINE [address] [place] [address] Kim Mcmullen, MIKHAIL [address] [place] [address] 10/18/2024 11:00 AM EDT Office Visit Jessi [facility] [address] [place] [address] Tita Owens LLD [address] [place] [address] documented as of this encounter Visit Diagnoses Not on filedocumented in this encounter Additional Health Concerns Assessment Noted Time PHQ-9 Depression Total Score: 0 12/18/19 23 2:24 PM EDT documented as of this encounter Care Teams Dishwasher Preparer Relationship Specialty Start Date End Date Tami Armendariz FNP [address] [place] [address] PCP - General Family Medicine 12/11/22 10/18/23 Kim Mcmullen NP [address] [place] [address] PCP - General Family Medicine 10/19/23 documented as of this encounter
--- OUTSIDE RECORDS SUMMARY | 2024-07-26 10:36 | XMS_ITS | Encounter Summary ---
Author Organization [employer] Address [address] [facility] 7t [place] [address] Care Team Providers Care Apartment Community Manager Name Role Phone Tami ArmendarizP Primary Care Provider [phone] Kim Mcmullen WORK ORDER SORTING CLERK Primary Care Provider [phone] Reason for Visit * Reason Onset Date Comments New Patient 11/05/2022 Encounter Details Date Type Department Care Team (Late st Contact Info) Description 11/05/2022 Telephone [facility] MEDICINE [address] [place], [place] [phone] Tami Armendariz FNP [address] [place], [place] [phone] New Patient Social History Tobacco Use Types [...] PAR Candie Conde called pt to Offer WORK ORDER SORTING CLERK appt. Pt demographics and insurance information were verified. 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 Pt is currently taking medication: Thyroid Medication and a list Anti/ Supplements ( advised to please bring to appt date ) Pt given WORK ORDER SORTING CLERK appt with Dr. Tami Armendariz on 12/17/2022 @ 2:15 pm. Pt will be sent appt reminder card and medical release form and agrees to complete and to return to medical records prior to WORK ORDER SORTING CLERK appt. documented in this encounter Plan of Treatment Upcoming Encounters Date Type Department Care Team (Late st Contact Info) Description 08/23/2024 1:45 PM EDT Office Visit [facility] MEDICINE [address] [place] [address] Kim Mcmullen NP [address] [place] [address] 10/18/2024 11:00 AM EDT Office Visit Jessi [facility] Dental [address] [place] [address] Tita Owens LLD [address] [place] [address] documented as of this encounter Visit Diagnoses Not on filedocumented in this encounter Care Teams Apartment Community Manager Relationship Specialty Start Date End Date Tami Armendariz FNP [address] [place] [address] PCP - General Family Medicine 12/11/22 10/18/23 Kim Mcmullen NP [address] [place] [address] PCP - General Family Medicine 10/19/23 documented as of this encounter
--- OUTSIDE RECORDS SUMMARY | 2024-07-26 10:36 | XMS_ITS | Encounter Summary ---
Author Organization [employer] Address [address] [place] [address] Care Team Providers Care Devops Consultant Name Role Phone Tami ArmendarizP Primary Care Provider [phone] Kim Mcmullen BUS OPERATOR Primary Care Provider [phone] Encounter Details Date Type Department Care Team (Late st Contact Info) Description 02/11/2023 Abstract [facility] MEDICINE [address] [place] [address] Christina Murry Social History Tobacco Use Types [...] Description 08/23/2024 1:45 PM EDT Office Visit [facility] MEDICINE [address] [place] [address] Kim Mcmullen NP [address] [place] [address] 10/18/2024 11:00 AM EDT Office Visit Jessi [facility] Dental [address] [place] [address] Tita Owens LLD [address] [place] [address] documented as of this encounter Procedures Procedure [...] documented as of this encounter Care Teams Devops Consultant Relationship Specialty Start Date End Date Tami Armendariz FNP [address] [place] [address] PCP - General Family Medicine 12/11/22 10/18/23 Kim Mcmullen NP [address] [place] [address] PCP - General Family Medicine 10/19/23 documented as of this encounter
--- OUTSIDE RECORDS SUMMARY | 2024-07-26 10:36 | XMS_ITS | Encounter Summary ---
Author Organization [employer] Address [address] [address] [place] [address] Care Team Providers Care Manager Environmental Affairs Name Role Phone Tami ArmendarizP Primary Care Provider [phone] Kim Mcmullen NP Primary Care Provider [phone] Reason for Visit * Reason Onset Date Comments Results 05/20/2023 Encounter Details Date Type Department Care Team ([facility] Contact Info) Description 05/20/2023 Telephone [facility] MEDICINE [address] [place], [place] [phone] Tami Armendariz FNP [address] [place] [address] Results Social History Tobacco Use Types Packs/Day [...] results: labs Date when done: 04/17 Facility: [facility] Please contact pt at [phone] documented in this encounter Plan of Treatment Upcoming Encounters Date Type Department Care Team (Late st Contact Info) Description 08/23/2024 1:45 PM EDT Office Visit [facility] MEDICINE [address] [place] [address] Kim Mcmullen NP [address] [place] [address] 10/18/2024 11:00 AM EDT Office Visit Jessi [facility] Dental [address] [place] [address] Tita Owens LLD [address] [place] [address] documented as of this encounter Visit Diagnoses Not on filedocumented in this encounter Additional Health Concerns Assessment Noted Time PHQ-9 Depression Total Score: 0 12/18/19 23 2:24 PM EDT documented as of this encounter Care Teams Manager Environmental Affairs Relationship Specialty Start Date End Date Tami Armendariz FNP [address] [place] [address] PCP - General Family Medicine 12/11/22 10/18/23 Kim Mcmullen NP [address] [place] [address] PCP - General Family Medicine 10/19/23 documented as of this encounter
--- OUTSIDE RECORDS SUMMARY | 2024-07-26 10:36 | XMS_ITS | Encounter Summary ---
Author Organization [employer] Address [address] 7t [place] [address] Care Team Providers Care Adobe Architect Name Role Phone Tami ArmendarizP Primary Care Provider [phone] Kim Mcmullen NP Primary Care Provider [phone] Reason for Visit * Reason Onset Date Comments Nurse Triage 01/19/2023 Encounter Details Date Type Department Care Team ([facility] st Contact Info) Description 01/19/2023 Telephone [facility] [address] [place], [place] [phone] Tami Armendariz FNP [address] [place] [address] Nurse Triage Social History Tobacco Use Types [...] Description 08/23/2024 1:45 PM EDT Office Visit [facility] [address] [place], [place] [phone] Kim Mcmullen NP [address] [place] [address] 10/18/2024 11:00 AM EDT Office Visit Jessi [facility] [address] [place] [address] Tita Owens LLD 9 [place] [address] documented as of this encounter Visit Diagnoses Not on filedocumented in this encounter Additional Health Concerns Assessment Noted Time PHQ-9 Depression Total Score: 0 12/18/19 23 2:24 PM EDT documented as of this encounter Care Teams Adobe Architect Relationship Specialty Start Date End Date Tami Armendariz FNP [address] [place] [address] PCP - General Family Medicine 12/11/22 10/18/23 Kim Mcmullen NP [address] [place] [address] [phone] PCP - General Family Medicine 10/19/23 documented as of this encounter
--- OUTSIDE RECORDS SUMMARY | 2024-07-26 10:36 | XMS_ITS | Encounter Summary ---
Author Organization [employer] Address [address] [facility] 7t [place] [address] Care Team Providers Care Wire Machine Operator Name Role Phone MarcelloDanielmarisol FARRARP Primary Care Provider [phone] Kim Mcmullen NP Primary Care Provider [phone] Encounter Details Date Type Department Care Team [...] Description 08/23/2024 1:45 PM EDT Office Visit [facility] [address] [place] [address] Kim Mcmullen, MIKHAIL [address] [place] [address] 10/18/2024 11:00 AM EDT Office Visit Jessi [facility] [address] [place] [address] Tita Owens LLD 9 [place] [address] documented as of this encounter Visit Diagnoses Not on filedocumented in this encounter Care Teams Wire Machine Operator Relationship Specialty Start Date End Date Tami Armendariz FNP [address] [place] [address] PCP - General Family Medicine 12/11/22 10/18/23 Kim Mcmullen NP [address] [place] [address] PCP - General Family Medicine 10/19/23 documented as of this encounter
--- OUTSIDE RECORDS SUMMARY | 2024-07-26 10:36 | XMS_ITS | Encounter Summary ---
Author Organization [employer] Address [address] [facility] 7t [place] [address] Care Team Providers Care Curtain Hemmer Automatic Name Role Phone Tami Armendariz Primary Care Provider [phone] Kim Mcmullen NP Primary Care Provider [phone] Encounter Details Date Type Department Care Team ([facility] Contact Info) Description 12/17/2022 Abstract [facility] [address] [place] [address] Tami Armendariz FNP [address] [place] [address] Social History Tobacco Use Types Packs/Day Years [...] Upcoming Encounters Date Type Department Care Team ([facility] Contact Info) Description 08/23/2024 1:45 PM EDT Office Visit [facility] [address] [place] [address] Kim Mcmullen NP [address] [place] [address] 10/18/2024 11:00 AM EDT Office Visit Jessi [facility] [address] [place] [address] Tita Owens LLD 9 [place] [address] documented as of this encounter Visit Diagnoses Not on filedocumented in this encounter Additional Health Concerns Assessment Noted Time PHQ-9 Depression Total Score: 0 12/18/19 23 2:24 PM EDT documented as of this encounter Care Teams Curtain Hemmer Automatic Relationship Specialty Start Date End Date Tami Armendariz FNP [address] [place] [address] PCP - General Family Medicine 12/11/22 10/18/23 Kim Mcmullen NP [address] [place] [address] PCP - General Family Medicine 10/19/23 documented as of this encounter
--- OUTSIDE RECORDS SUMMARY | 2024-07-26 10:36 | XMS_ITS | Encounter Summary ---
Author Organization [employer] Address [address] 7t [place] [address] Care Team Providers Care Certified Executive Chef Name Role Phone Tami ArmendarizP Primary Care Provider [phone] Kim Mcmullen NP Primary Care Provider [phone] Reason for Visit * Reason Onset Date Comments Appointment Request 02/09/2023 Encounter Details Date Type Department Care Team ([facility] st Contact Info) Description 02/09/2023 Telephone [facility] [address] [place], [place] [phone] Tami Armendariz FNP [address] [place], [place] [phone] Appointment Request Social History Tobacco Use Types [...] pt is on a recall for February, typewriter mechanic attempted schedule,no availability at the moment. documented in this encounter Plan of Treatment Upcoming Encounters Date Type Department Care Team (Late st Contact Info) Description 08/23/2024 1:45 PM EDT Office Visit [facility] [address] [place] [address] Kim Mcmullen NP [address] [place] [address] 10/18/2024 11:00 AM EDT Office Visit Jessi [facility] [address] [place] [address] Tita Owens LLD 9 [place] [address] documented as of this encounter Visit Diagnoses Not on filedocumented in this encounter Additional Health Concerns Assessment Noted Time PHQ-9 Depression Total Score: 0 12/18/19 23 2:24 PM EDT documented as of this encounter Care Teams Certified Executive Chef Relationship Specialty Start Date End Date Tami Armendariz FNP [address] [place] [address] PCP - General Family Medicine 12/11/22 10/18/23 Kim Mcmullen NP [address] [place] [address] PCP - General Family Medicine 10/19/23 documented as of this encounter
--- OUTSIDE RECORDS SUMMARY | 2024-07-26 10:36 | XMS_ITS | Encounter Summary ---
Author Organization [employer] Address [address] [place] [address] Care Team Providers Care Wireless Retail Manager Name Role Phone Tami ArmendarizP Primary Care Provider [phone] Kim Mcmullen NP Primary Care Provider [phone] Reason for Visit * Reason Onset Date Comments Referral 04/21/2023 Encounter Details Date Type Department Care Team ([facility] st Contact Info) Description 04/21/2023 Telephone [facility] [address] [place], [place] [phone] Tami Armendariz FNP [address] [place], [place] [phone] Referral Social History Tobacco Use Types Packs/Day [...] from [facility] calling to speak with the [place] for the PCP to obtain aInsurance referral com writer did attempt to transfer to direct line but was advised by the insurance legal assistant needs to get referral by the [place] documented in this encounter Plan of Treatment Upcoming Encounters Date Type Department Care Team (Late st Contact Info) Description 08/23/2024 1:45 PM EDT Office Visit [facility] [address] [place] [address] Kim Mcmullen NP [address] [place] [address] 10/18/2024 11:00 AM EDT Office Visit Jessi [facility] [address] [place] [address] Tita Owens LLD 9 [place] [address] documented as of this encounter Visit Diagnoses Not on filedocumented in this encounter Additional Health Concerns Assessment Noted Time PHQ-9 Depression Total Score: 0 12/18/19 23 2:24 PM EDT documented as of this encounter Care Teams Wireless Retail Manager Relationship Specialty Start Date End Date Tami Armendariz FNP [address] [place] [address] PCP - General Family Medicine 12/11/22 10/18/23 Kim Mcmullen NP [address] [place] [address] PCP - General Family Medicine 10/19/23 documented as of this encounter
== END 2024-07-26 10:49 | disposition home or self-care (01) ==
PROVIDERS: PCP Nurse Practitioner Family; Visit Provider Nurse Practitioner Family
DX: R42 Dizziness and giddiness (principal); R94.31 Abnormal electrocardiogram [ECG] [EKG]
CPT/HCPCS: 99214; G2211

== ENCOUNTER → 2024-07-26 09:35 | Outpatient (BNVA) | payer OTHER, SELFPAY | PROVIDERS: PCP Nurse Practitioner Family; Visit Provider Nurse Practitioner Family | DX: R42 Dizziness and giddiness (principal); R94.31 Abnormal electrocardiogram [ECG] [EKG] | CPT/HCPCS: 99212 ==

== ENCOUNTER 2024-11-11 08:29 | Outpatient (AMB) | payer OTHER, SELFPAY ==
--- OUTSIDE RECORDS SUMMARY | 2022-07-13 12:25 | XMS_ITS | Encounter Summary ---
Author Organization [facility] Address [address] [place] [address] Phone Care Team Providers Care Grey Percher Name Role Phone Aiden Preston MD Primary Care Provider [phone] Encounter Details Date Type Department Care Team (Late st Contact Info) Description 07/13/2022 12:25 PM EDT Hospital Encounter [facility] [address] [place] [phone] Carmel Lomas CNP [address] [place] [phone] Social History Tobacco Use Types Packs/Day Years [...] originally createdby Dr. Isis Verduzco. Carmel Lomas DIRECTOR RISK IMG XR LOWER EXTREMITY Manda l Result documented in this encounter Visit Diagnoses Not on filedocumented in this encounter Additional Health Concerns Assessment Noted Time PHQ-2 Depression Total Score: 1 11/28/19 21 8:59 AM EDT documented as of this encounter Care Teams Grey Percher Relationship Specialty Start Date End Date Aiden Preston MD [address] [phone] [email or web address] - General Internal Medicine 07/19/21 01/03/24 documented as of this encounter Additional Source Comments The information contained in this document represents components of the legal health record. It is not the complete legal health record.[facility]
--- OUTSIDE RECORDS SUMMARY | 2024-11-11 08:43 | XMS_ITS | Clinical Summary ---
Author Organization [facility] Address [address] [place] [address] Phone Care Team Providers Care Child Nurse Name Role Phone Kim Mcmullen RIGOBERTO Primary Care Provider [phone] Encounters Date Type Department Care Team Description 10/04/2024 12:21 PM EDT - 10/04/2024 11:59 PM EDT Hospital Encounter [facility] Xray [address] [place] [address] Dizziness; Giddiness Discharge Disposition: Home or Self Care from Last 3 Months Surgical History Surgery Date Site/Laterality Comments OTHER [...] on file Obstetrics History Plan of Treatment Health Maintenance Due Date Last Done Comments Breast Cancer Screening 1950 Zoster Vaccines (1 of 2) 2000 RSV Immunization Adult Patients (1 - Risk 60-74 years 1-dose series) 2010 Pneumococcal Vaccine: 50+ Years (2 of 2 - PPSV23) 01/12/2020 11/17/2019 Colorectal Cancer Screening: Colonoscopy 02/22/2022 Falls Risk Assessment 02/22/2022 Hepatitis C Screening 02/22/2022 Osteoporosis Screening (Bone Density Screening) 02/22/2022 Social Influencers of Health Screening 02/22/2022 COVID-19 Vaccine ( season) 2023 05/05/2020, 04/07/2020, 04/07/2020, Additional history exists Depression Screening 03/23/2024 Influenza Vaccine (#1) 2024 Cholesterol Screening (Lipid Panel) 12/14/2024 12/15/2019 DTaP,Tdap,and Td Vaccines (3 - Td or Tdap) 11/16/2029 11/17/2019, 03/16/2010 HIB Vaccines Aged Out No longer eligi [...] to complete this topic RSV Immunization Patients Under 20 months Aged Out No longer eligible based on patient's age to complete this topic Varicella Vaccines Aged Out No longer eligible based on patient's age to complete this topic Procedures Procedure Name Priority Date/Time Associated Diagnosis Comments TILT TABLE Routine 10/04/2024 1:03 PM EDT Dizziness Giddiness from Last 3 Months Results * Tilt table (10/04/2024 1:03 PM EDT) Anatomical Region Laterality Modality Radiographic Renate ging Narrative 10/04/2024 3:17 PM EDT Pt felt palpitations at the beginning of the test - HR 65, NSR. [place] lightheaded throughout the test. No change in symptoms with SBP 87. Tilt Table The patient was brought to lab in fasting state. Patient lied supine for 5 minutes for equilibrium. Baseline ECG showed normal sinus rhythm. Baseline supine minimum BP: 128/70 mmHg Baseline supine minimum HR: 60 bpm Patient tilted to 70 degrees. Tilt maintained for 20 minutes. Minimum BP during tilt: 87/64 mmHg Maximum BP during tilt: 109/78 mmHg Minimum heart rate during tilt: 64 bpm Maximum heart rate during tilt: 76 bpm Rhythm during tilt: normal sinus rhythm There was a clear orthostatic response not noted. Patient experienced a physiologic HR increase with tilt. Symptoms seen on tilt include: light headedness. Premonitory symptoms were reproduced. Syncope/presyncope symptoms were not reproduced. Conclusion: Negative tilt test. Reji Baraohna MD [facility] PRO CEDURES Final Result from Last 3 Months Insurance [facility] MEDICARE Member Subscriber Plan / Payer (Ef fective 2024-Present) Name:Stephie Lombardo Member ID:Not on file Relation to Subscriber:Self Name:Stephie Lombardo Subscriber ID:[id number] Payer ID:[id number] Group ID:Not on file Type:Not on file Address: [address] [place] [address] [facility] Member Subscriber Plan / Payer (Ef fective 2023-Present) Name:Stephie Lombardo Relation to Subscriber:Self Name:Stephie Lombardo Payer ID:[id number] Group ID:[id number] Type:Not on file Address: [address] [place] [address] Care Teams Child Nurse Relationship Specialty Start Date End Date Kim Mcmullen FNP [address] [place] [address] PCP - General Nurse Practitioner 07/18/24
--- OUTSIDE RECORDS SUMMARY | 2024-11-11 08:43 | XMS_ITS | Clinical Summary ---
Author Organization [employer] Address [address] [facility] 7t [place] [address] Care Team Providers Care Pecan Sheller Name Role Phone Kim Mcmullen NP Primary Care Provider [phone] Allergies Active Allergy Reactions Criticality Noted Date [...] Problems Problem Noted Date Diagnosed Date TMJ (dislocation of temporomandibular joint), se quela 08/23/2024 Assessment & Plan (08/23/2024 4:27 PM EDT): Sig improvement with pt, stable at this time Vertigo 08/23/2024 Assessment & Plan (08/23/2024 4:29 PM EDT): Pt will outreach for additional support as needed Other idiopathic scoliosis, thoracic region 05/2024 Assessment & Plan (08/23/2024 4:29 PM EDT): Pt considering PT in the future, but after current travel plans TMJ (temporomandibular joint disorder) Assessment & Plan (05/14/2024 1:41 PM EST): [...] controlled w/ healthy diet, vegan. Colonoscopy done 2018 Follows a healthy diet, vegan. Assessment & Plan (08/23/2024 4:27 PM EDT): IBS , pt to discuss screening options and management with GI team, feels comfortable reaching out to them at this time Mitral valve disease 05/19/2006 Overview (11/21/2022): Echocardiogram [...] Date Type Department Care Team Description 10/04/2024 Telephone [facility] [address] [place] [address] Joanna Oneill MA sep recall 08/23/2024 1:45 PM EDT Office Visit [facility] [address] [place] [address] Kim Mcmullen NP Irritable bowel syndrome with constipation (Primary Dx); TMJ (dislocation of temporomandibular joint), sequela; Vertigo; Other idiopathic scoliosis, thoracic region 08/23/2024 Travel 08/22/2024 Telephone [facility] [address] [place] [address] Kim Mcmullen NP Chart Prep from Last 3 Months Immunizations Immunization Administration Dates Next Due Pfizer Covid-19 Vaccine [...] Former Cigarettes 1 20 Passive Smoke Exposure: Past Smokeless Tobacco: Never Tobacco Cessation:Counseling Given: Not [...] Sign Reading Time Taken Comments Blood Pressure 138/82 08/23/2024 1:49 PM EDT Pulse 61 08/23/2024 1:49 PM EDT Temperature 36.2 C (97.1 F) 08/23/2024 1:49 PM EDT Respiratory Rate 20 08/23/2024 1:49 PM EDT Oxygen Saturation 97% 01/19/2024 3:26 PM EDT Inhaled Oxygen Concentration - - Weight 47.2 kg (104 lb 2 oz) 08/23/2024 1:49 PM EDT Height 154.4 cm (5' 0.78 ) 08/23/2024 1:49 PM ED T Body Mass Index 19.82 08/23/2024 1:49 PM EDT Plan of Treatment Upcoming Encounters Date Type Department Care Team (Late st Contact Info) Description 11/15/2024 10:00 AM EDT Office Visit Jessi [facility] [address] [place] [address] Tita Owens LLD [address] [place] [address] 11/30/2024 10:15 AM EDT Office Visit [facility] [address] [place] [address] Kim Mcmullen, MIKHAIL [address] [place], [place] [phone] Health Maintenance Due Date Last Done Comments [...] PPSV23) 01/12/2020 11/17/2019 COVID-19 Vaccine (4 - 2023- season) 2023 05/05/2020, 04/07/2020, 03/23/2020 Depression Screening 12/18/2023 12/17/2022, 12/18/19 23 Dental Prophylaxis 01/10/2024 07/10/2023, 0 11/27/2022, 03/06/2021, Additional history exists Dental X-Ray: Full Mouth 02/01/2024 021, 11/22/2020, 06/26/2017 Dental Oral Exam 10/13/2024 04/14/2024, , 11/27/2022, Additional history exists Influenza Vaccine (#1) 2024 Alcohol/Substance Use Screening 12/17/2024 12/18/2023 SDOH Screening 12/17/2024 12/18/2023 Dental X-Ray: Bitewings 04/15/2025 04/14/19 25, 11/27/2022, 11/22/2020, Additional history exists Tobacco Screening 08/23/2025 08/23/2024 Hepatitis C Screening Completed 01/21/2023 HIB Vaccines [...] AM EDT) Hepatitis A IgM Nonreactive Nonreactive [facility] Comment:IgM antibodies to MCLAIN V not detected; does not exclude earlyacute or recovered HAV infection. ~Hepatitis B Surface Antibody NONREACTIVE Nonreactive [facility] Comment:Nonreactive: < 8.00 mIU/mL Hepatitis B Core Antibody Nonreactive Nonreactive [facility] Hepatitis C Antibody Nonreactive Nonreactive [facility] Comment:Antibodies to HCV no t detected; does not exclude early acuteHCV infection. Hepatitis B Surface Ag Negative Negative [facility] Blood Venous blood specimen / Unknown 01/21/2023 11:54 AM EDT 01/21/2023 3:52 PM EDT Di Archuleta COTTAGE ATTENDANT LAB BLOOD ORDERABLES Final Res ult [facility] [address] [place] [address] [phone] from Last 3 Months or Most Recently Relevant to Health Maintenance Insurance [facility] JAIL OPTIONS (HMO D-SNP) [facility] Care Teams Pecan Sheller Relationship Specialty Start Date End Date Kim Mcmullen NP [address] [place] [address] PCP - General Family Medicine 10/19/23
[2024-11-11 08:47] VITALS: BP 100/62; PULSE 52
--- NOTE | 2024-11-11 08:47 | A.OFFVIS_ITS ---
Vital Signs 11/11/24 08:47 Height 5 ft Weight 102 lb 4.712 oz BMI 20.0 BP 100/62 Blood Pressure Location Lt brachial Position Sitting Pulse 52 Pulse Source Pulse Oximeter Intake Visit Reasons: 3 mth f/up r/s 10-27-24 Market Gardener Required: No Allergies Penicillins Allergy (Mild, Verified 11/11/24 08:50) Hives Medication List - Last Reconciled 11/11/24 by Ines Ugarte, COMPUTER PERIPHERAL EQUIPMENT OPERATOR-C levothyroxine 25 mcg PO BID liothyronine 5 mcg PO BID HPI HPI 3 mth f/up r/s 10-27-24: Details: Stephie is a 73-year-old female with past medical history of orthostatic hypotension, Hank-Danlos syndrome, symptoms of dysautonomia who presents for follow-up after recent tilt-table test. Today she reports that she continues to have issues with periodic lightheadedness. She had increased symptoms over the [place] The temperature was very hot and there was limited air conditioning. She has not had any full presyncope or syncope. She maintains good hydration and uses extra salt. She still gets heart palpitations which occur during activities, Vague reports of chest discomfort and chronic fatigue. She has ongoing issues with brain fog and some forgetfulness. 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 She describes that most of her symptoms occurred post COVID vaccines. She is following with her PCP and a flakeboard line tender. She follows a vegan diet and tries to remain physically active. She has not been able to wear compression stockings as her skin is sensitive and they are uncomfortable. [facility] Medical History Orthostatic hypotension Osteoporosis Scoliosis GERD (gastroesophageal reflux disease) Depressive disorder Asthma Family History Mother Ovarian cancer Father Alcoholism Brother Prostate cancer Maternal Grandfather Heart attack Social History Alcohol intake: former Patient Tobacco Use Status: Former Tobacco user Review of Systems Const All systems reviewed & are unremarkable except as noted in HPI and below Reports fatigue ENT Reports dizziness Card Denies chest pain, Denies chest pain at rest, Denies chest pain with activity, Denies rapid heart rate, Denies pedal edema, Denies edema, Denies leg edema, Denies lightheadedness, Denies palpitations, Denies dyspnea, Denies dyspnea on exertion and Denies orthopnea Resp Denies cough, Denies dyspnea and Denies dyspnea on exertion GI Denies hematochezia and Denies change in stool character Musc Denies abnormal gait, Denies limited range of motion, Denies muscle cramps, Denies muscle weakness, Denies numbness, Denies radiating pain into limb, Denies stiffness and Denies tingling Neuro Denies abnormal gait, Reports dizziness, Denies numbness and Denies tingling Endo Reports fatigue and Denies palpitations Physical Exam Vital Signs: Last Vital Signs Pulse 52 11/11/24 08:47 BP 100/62 11/11/24 08:47 BMI result Body Mass Index 20.0 Const General: cooperative, healthy appearing, comfortable and no acute distress Orientation/consciousness: patient oriented x3 Neck Neck: Yes normal visual inspection Resp Effort & Inspection: normal respiratory effort Auscultation: clear to auscultation bilaterally, no rales, no rhonchi and no wheezes Cardio Jugular venous distension: no JVD Rate: regular rate Rhythm: regular rhythm Heart sounds: S1 normal heart sound present, S2 normal heart sound present, no gallops, no murmurs and no rubs Neuro General: patient oriented x3 Extrem General: Yes normal to inspection, No no pedal edema and No calf tenderness Psych Appearance: grossly normal Mental Status: mental status grossly normal Speech and movement: Normal speech and movement present Assessment & Plan Assessment & Plan (1) Dizziness: Code(s): R42 - Dizziness and giddiness Category: Medical Plan: Multi symptoms including lightheadedness, heart palpitations, fatigue. She has had low blood pressures in the past, with orthostatic readings, which improved some with increased salt intake. Echocardiogram done 06/07/2024 shows EF 65-70%, impaired relaxation, normal valves and normal RV. Tilt-table test done on 10/04/2024 was negative study. Reviewed with her in detail. She did have low blood pressure readings but not significant at that time. She was instructed to continue using caution when going sitting to standing, maintain good hydration, continue use of added salt, wear compression stockings if able. If she does have documented hypotension in the future will consider use of midodrine. Cardiology follow-up 4 months, sooner if needed. (2) Abnormal EKG: Code(s): R94.31 - Abnormal electrocardiogram [ECG] [EKG] Category: Medical Plan: Her EKG does show septal Q-wave. No known cardiac history. She did have echocardiogram which shows normal EF and wall motion. Exercise stress test 07/05/2024 with exercise 5.5 minutes with symptoms of lightheadedness and heart palpitations with no EKG changes of ischemia. Test results reviewed with her. Septal Q-wave could be related to lead placement. Plan I discussed with the patient the management of dysautonomia, emphasizing the benefits of increased salt intake and intermittent fasting. We reviewed the use of compression socks, considering her skin sensitivity and hives. For atherosclerosis prevention, we discussed dietary management as an alternative to statins, given her vegan diet and cholesterol levels. I recommended regular f ollow-up to monitor her symptoms and adjust her management plan as necessary. Patient Instructions: - Increase salt intake and practice intermittent fasting to manage symptoms. - Avoid compression socks if they cause skin irritation or hives. - Follow a low-cholesterol diet. - Schedule regular follow-up appointments to monitor symptoms. Patient was informed and verbally consented to the use of an ambient scribe for clinic note documentation during this visit. Visit time spent on chart review, interview, assessment, orders, documentation. Coding Level of Care Code Est Pt Level 4 (86649) Complex EM visit Add On G2211 Diagnoses Dizziness R42 Abnormal EKG R94.31 Time Spent (min) 32
== END 2024-11-11 09:26 | disposition home or self-care (01) ==
LOC: HO.HCS 08:30
PROVIDERS: PCP Nurse Practitioner Family; Visit Provider Nurse Practitioner Family
DX: R42 Dizziness and giddiness (principal); R94.31 Abnormal electrocardiogram [ECG] [EKG]
CPT/HCPCS: 99214; G2211

== ENCOUNTER → 2024-11-11 08:29 | Outpatient (BNVA) | payer OTHER, SELFPAY | PROVIDERS: PCP Nurse Practitioner Family; Visit Provider Nurse Practitioner Family | DX: R42 Dizziness and giddiness (principal); R94.31 Abnormal electrocardiogram [ECG] [EKG] | CPT/HCPCS: 99212 ==

== ENCOUNTER 2024-11-24 08:39 | Outpatient (REF) | payer OTHER, SELFPAY ==
--- OUTSIDE RECORDS SUMMARY | 2022-07-13 12:25 | XMS_ITS | Encounter Summary ---
Author Organization [facility] Address [address] [place] [address] Phone Care Team Providers Care Real Estate Marketing Coordinator Name Role Phone Aiden Preston MD Primary Care Provider [phone] Encounter Details Date Type Department Care Team (Late st Contact Info) Description 07/13/2022 12:25 PM EDT Hospital Encounter [facility] [address] [place] [phone] Carmel Lomas CNP [address] [place] [phone] Social History Tobacco Use Types Packs/Day Years [...] as of this encounter Plan of Treatment Not on file documented as of this encounter Procedures Procedure [...] PM EDT No fracture or dislocation. ATTESTATION: I, Rudy Cooper as teaching physician, have reviewed the images [...] tissueswelling. IMPRESSION: No fracture or dislocation. ATTESTATION: I, Rudy Cooper as teaching physician, have reviewed theimages for this case and if necessary edited the report originally createdby Dr. Isis Verduzco. Carmel Lomas LAMP SHADE JOINER IMG XR LOWER EXTREMITY Manda l Result documented in this encounter Visit Diagnoses Not on filedocumented in this encounter Additional Health Concerns Assessment Noted Time PHQ-2 Depression Total Score: 1 11/28/19 21 8:59 AM EDT documented as of this encounter Care Teams Real Estate Marketing Coordinator Relationship Specialty Start Date End Date Aiden Preston MD [address] [phone] [email or web address] - General Internal Medicine 07/19/21 01/03/24 documented as of this encounter Additional Source Comments The information contained in this document represents components of the legal health record. It is not the complete legal health record.[facility]
--- OUTSIDE RECORDS SUMMARY | 2024-11-24 09:09 | XMS_ITS | Clinical Summary ---
Author Organization [facility] Address [address] [place] [address] Phone Care Team Providers Care Plaster Block Layer Name Role Phone Kim Mcmullen RIGOBERTO Primary Care Provider [phone] Encounters Date Type Department Care Team Description 10/04/2024 12:21 PM EDT - 10/04/2024 11:59 PM EDT Hospital Encounter [facility] Xray [address] [place] [address] Dizziness; Giddiness Discharge Disposition: Home [...] 02/22/2022 Social Influencers of Health Screening 02/22/2022 Depression Screening 03/23/2024 COVID-19 Vaccine ( season) 2024 05/05/2020, 04/07/2020, 04/07/2020, Additional history exists Influenza Vaccine (#1) 2024 Cholesterol Screening (Lipid [...] of the test - HR 65, NSR. Page lightheaded throughout the test. No change in [...] not reproduced. Conclusion: Negative tilt test. Reji Barahona MD [facility] PRO CEDURES Final Result from Last 3 Months Insurance [facility] MEDIC[facility] Member Subscriber Plan / Payer ( fective 2024-Present) Name:Stephie Lombardo Member ID:Not on file Relation to Subscriber:Self Name:Stephie Lombardo Subscriber ID:[id number] Payer ID:[id number] Group ID:Not on file Type:Not on file Address: [address] [place] [address] [facility] Member Subscriber Plan / Payer ( fective 2023-Present) Name:Stephie Lombardo Relation to Subscriber:Self Name:Stephie Lombardo Payer ID:[id number] Group ID:[id number] Type:Not on file Address: [address] [place] [address] Care Teams Plaster Block Layer Relationship Specialty Start Date End Date Kim Mcmullen FNP [address] [place] [address] PCP - General Nurse Practitioner 07/18/24
--- OUTSIDE RECORDS SUMMARY | 2024-11-24 09:09 | XMS_ITS | Encounter Summary ---
Author Organization [facility] Address [address] [place] [phone] Phone Care Team Providers Care General Manager Road Production Name Role Phone Aiden Preston MD Primary Care Provider Fabienne Jade DO Primary Care Provider [phone] Rosemarie Biggs MD Primary Care Provider Aiden Preston MD Primary Care Provider Kim Mcmullen NP Primary Care Provider [phone] Encounter Details Date Type Department Care Team (Late st Contact Info) Description 09/06/2018 Procedure Pass [facility]oscopy Admitting Dept Virtual Department [address] [place] [address] Social History Tobacco Use Types Packs/Day Years Used Date Smoking Tobacco: Former Cigarettes Smokeless Tobacco: Never Comments:qut 30 years ago Alcohol Use Standard Drinks/Week Comments Never 0 (1 standard drink = 0.6 oz pur e alcohol) Comments Unknown Sex and Gender Information Value Date Recorded Sex Assigned at Female 04/02/2020 10:17 AM EST Legal Sex Female 6:24 PM EST Gender Identity Female 04/02/2020 10:17 AM EST Sexual Orientation Straight 10/25/2021 4: 24 PM EDT documented as of this encounter Functional Status documented as of this encounter Plan of Treatment Not on file documented as of this encounter Visit Diagnoses Not on filedocumented in this encounter Additional Health Concerns Infection Onset Date Last Indicated Resolved Time CoV-Risk 03/02/2020 03/03/2020 03/17/2020 1:23 AM EST documented as of this encounter Care Teams General Manager Road Production Relationship Specialty Start Date End Date Aiden Preston MD [address] [place] [phone] [email or web address] PCP - General 06/04/1803/24/19 Fabienne Jade DO [address] [place] [address] [email or web address] PCP - General Family Medicine 03/25/19 07/26/20 Rosemarie Biggs MD [address] [place] [address] [email or web address] PCP - General Family Medicine 07/27/20 07/18/21 Aiden Preston MD [address] [place] [phone] [email or web address] PCP - General Internal Medicine 07/19/21 01/03/24 Kim Mcmullen NP [address] [place] [address] PCP - General Nurse Practitioner 01/04/24 documented as of this encounter Additional Source Comments The information contained in this document represents components of the legal health record. It is not the complete legal health record.[facility]
--- OUTSIDE RECORDS SUMMARY | 2024-11-24 09:09 | XMS_ITS | Encounter Summary ---
Author Organization [employer] Address [address] [place] [address] Care Team Providers Care Intern Architect Name Role Phone Tami Armendariz Primary Care Provider [phone] Kim Mcmullen NP Primary Care Provider [phone] Reason for Visit * Reason Onset Date Comments Referral 04/21/2023 Encounter Details Date Type Department Care Team ([facility] st Contact Info) Description 04/21/2023 Telephone [facility] MEDICINE [address] [place], [place] [phone] Tami Armendariz FNP [address] [place], [place] [phone] Referral Social History Tobacco Use Types Packs/Day [...] from [facility] calling to speak with the [place] for the PCP to obtain aInsurance referral radio news writer did attempt to transfer to direct line but was advised by the insurance agency manager needs to get referral by the [place] documented in this encounter Plan of Treatment Upcoming Encounters Date Type Department Care Team (Late st Contact Info) Description 11/28/2024 2:30 PM EDT Office Visit [facility] MEDICINE [address] [place] [address] Kim Mcmullen NP [address] [place] [address] 11/29/2024 10:00 AM EDT Office Visit [facility] [address] [place] [address] Maira Lla LLD [address] [place] [address] 05/09/2025 11:00 AM EST Office Visit [facility] [address] [place] [address] Tita Owens LLD [address] [place] [address] documented as of this encounter Visit Diagnoses Not on filedocumented in this encounter Additional Health Concerns Assessment Noted Time PHQ-9 Depression Total Score: 0 12/18/19 23 2:24 PM EDT documented as of this encounter Care Teams Intern Architect Relationship Specialty Start Date End Date Tami Armendariz FNP [address] [place] [address] PCP - General Family Medicine 12/11/22 10/18/23 Kim Mcmullen NP [address] [place] [address] PCP - General Family Medicine 10/19/23 documented as of this encounter
--- OUTSIDE RECORDS SUMMARY | 2024-11-24 09:09 | XMS_ITS | Encounter Summary ---
Author Organization [employer] Address [address] [place] [address] Care Team Providers Care Brassiere Cup Mold Cutter Name Role Phone Tami ArmendarizP Primary Care Provider [phone] Kim Mcmullen NP Primary Care Provider [phone] Reason for Visit * Reason Onset Date Comments Appointment Request 02/09/2023 Encounter Details Date Type Department Care Team ([facility] st Contact Info) Description 02/09/2023 Telephone [facility] MEDICINE [address] [place], [place] [phone] Tami Armendariz FNP [address] [place], [place] [phone] Appointment Request Social History Tobacco Use Types [...] pt is on a recall for February, news writer attempted schedule,no availability at the moment. documented in this encounter Plan of Treatment Upcoming Encounters Date Type Department Care Team (Late st Contact Info) Description 11/28/2024 2:30 PM EDT Office Visit [facility] MEDICINE [address] [place] [address] Kim Mcmullen NP [address] [place] [address] 11/29/2024 10:00 AM EDT Office Visit [facility] [address] [place] [address] Maira Lal LLD [address] [place] [address] 05/09/2025 11:00 AM EST Office Visit [facility] [address] [place] [address] Tita Owens LLD [address] [place] [address] documented as of this encounter Visit Diagnoses Not on filedocumented in this encounter Additional Health Concerns Assessment Noted Time PHQ-9 Depression Total Score: 0 12/18/19 23 2:24 PM EDT documented as of this encounter Care Teams Brassiere Cup Mold Cutter Relationship Specialty Start Date End Date Tami Armendariz FNP [address] [place] [address] PCP - General Family Medicine 12/11/22 10/18/23 Kim Mcmullen NP [address] [place] [address] PCP - General Family Medicine 10/19/23 documented as of this encounter
--- OUTSIDE RECORDS SUMMARY | 2024-11-24 09:09 | XMS_ITS | Encounter Summary ---
Author Organization [employer] Address [address] [facility] 7[address] [place] [address] Care Team Providers Care Speech Correction Consultant Name Role Phone Tami ArmendarizP Primary Care Provider [phone] Kim Mcmullen NP Primary Care Provider [phone] Encounter Details Date Type Department Care Team [...] 11/28/2024 2:30 PM EDT Office Visit [facility] MEDICINE [address] [place] [address] Kim Mcmullen, MIKHAIL [address] [place] [address] 11/29/2024 10:00 AM EDT Office Visit [facility] [address] [place] [address] Maira Lal LLD [address] [place] [address] 05/09/2025 11:00 AM EST Office Visit [facility] [address] [place] [address] Tita Owens LLD [address] [place] [address] documented as of this encounter Visit Diagnoses Not on filedocumented in this encounter Care Teams Speech Correction Consultant Relationship Specialty Start Date End Date Tami Armendariz FNP [address] [place] [address] PCP - General Family Medicine 12/11/22 10/18/23 Kim Mcmullen NP [address] [place] [address] PCP - General Family Medicine 10/19/23 documented as of this encounter
--- OUTSIDE RECORDS SUMMARY | 2024-11-24 09:09 | XMS_ITS | Encounter Summary ---
Author Organization [employer] Address [address] [place] [address] Care Team Providers Care Agricultural Produce Commission Agent Name Role Phone Tami Armendariz Primary Care Provider [phone] Kim Mcmullen NP Primary Care Provider [phone] Reason for Visit * Reason Onset Date Comments Results 05/20/2023 Encounter Details Date Type Department Care Team ([facility] st Contact Info) Description 05/20/2023 Telephone [facility] MEDICINE [address] [place], [place] [phone] Tami Armendariz FNP [address] [place], [place] [phone] Results Social History Tobacco Use Types Packs/Day [...] results: labs Date when done: 04/17 Facility: [facility] Please contact pt at [phone] documented in this encounter Plan of Treatment Upcoming Encounters Date Type Department Care Team (Late st Contact Info) Description 11/28/2024 2:30 PM EDT Office Visit [facility] MEDICINE [address] [place] [address] Kim Mcmullen NP [address] [place] [address] 11/29/2024 10:00 AM EDT Office Visit [facility] [address] [place] [address] Maira Lal LLD [address] [place] [address] 05/09/2025 11:00 AM EST Office Visit [facility] [address] [facility] [address] Tita Owens LLD [address] [place] [address] documented as of this encounter Visit Diagnoses Not on filedocumented in this encounter Additional Health Concerns Assessment Noted Time PHQ-9 Depression Total Score: 0 12/18/19 23 2:24 PM EDT documented as of this encounter Care Teams Agricultural Produce Commission Agent Relationship Specialty Start Date End Date Tami Armendariz FNP [address] [place] [address] PCP - General Family Medicine 12/11/22 10/18/23 Kim Mcmullen NP [address] [place] [address] PCP - General Family Medicine 10/19/23 documented as of this encounter
--- OUTSIDE RECORDS SUMMARY | 2024-11-24 09:09 | XMS_ITS | Encounter Summary ---
Author Organization [employer] Address [address] [facility] 7[address] [place] [address] Care Team Providers Care Casualty Underwriter Name Role Phone Tami Armendariz Primary Care Provider [phone] Kim Mcmullen NP Primary Care Provider [phone] Encounter Details Date Type Department Care Team (Late st Contact Info) Description 12/17/2022 Abstract [facility] MEDICINE [address] [place] [address] Tami Armendariz FNP [address] [place] [address] Social History Tobacco Use Types Packs/Day Years [...] AM EDT documented as of this encounter Functional Status * Over the past 2 weeks, how often have you been bothered by any of the following problems? Question Answer Date of Assessment Author Patient Health Questionnaire-2 Score 0 11/22 2:24 PM EDT Collins Kim MA * Over the past 2 weeks, how often have you been bothered by any of the following problems? Question Answer Date of Assessment Author Little interest or pleasure in doing things Not at all 12/17/2022 2:24 PM Collins Myles M A Feeling down, depressed, or hopeless Not at all 12/17/2022 2:24 PM Collins Myles M A Trouble falling or staying asleep, or sleeping too much Not at all 12/17/2022 2:24 PM Collins Myles MA Feeling tired or having tejas le energy Not at all 12/17/2022 2:24 PM Collins Myles M A Poor appetite or overeating Not at all 12/17/2022 2: 24 PM Collins Myles MA Feeling bad about yourself - or that you are a failure or have let yourself or your family down Not at all 12/17/2022 2:24 PM EDT Collins Saldana ra, [place] Trouble concentrating on thi ngs, such as reading the newspaper or watching television Not at all 12/17/2022 2:24 PM LUIS DANIELT Collins Kim M A Moving or speaking so slowly that other people could have noticed? Or the opposite - being so fidgety or restless that you have been moving around a lot more than usual. Not at all 12/17/2022 2:24 PM Collins Myles M A Thoughts that you would be better off or hurting yourself in some way Not at all 12/17/2022 2:24 PM Collins Myles MA Patient Health Questionnaire -9 Score 0 12/17/2022 2:24 PM LUIS DANIELT Collins Kim M A documented as of this encounter Plan of Treatment Upcoming Encounters Date Type Department Care Team (Late st Contact Info) Description 11/28/2024 2:30 PM EDT Office Visit [facility] MEDICINE [address] [place] [address] Kim Mcmullen NP [address] [place] [address] 11/29/2024 10:00 AM EDT Office Visit [facility] [address] [place] [address] Maira Lal LLD [address] [place] [address] 05/09/2025 11:00 AM EST Office Visit [facility] [address] [place] [address] Tita Owens LLD [address] [place] [address] documented as of this encounter Visit Diagnoses Not on filedocumented in this encounter Additional Health Concerns Assessment Noted Time PHQ-9 Depression Total Score: 0 12/18/19 23 2:24 PM EDT documented as of this encounter Care Teams Casualty Underwriter Relationship Specialty Start Date End Date Tami Armendariz FNP [address] [place] [address] PCP - General Family Medicine 12/11/22 10/18/23 Kim Mcmullen NP [address] [place] [address] PCP - General Family Medicine 10/19/23 documented as of this encounter
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
--- OUTSIDE RECORDS SUMMARY | 2024-11-24 09:09 | XMS_ITS | Clinical Summary ---
Author Organization [employer] Address [address] [facility] [address] [place] [address] Care Team Providers Care Appliance Repair Technician Name Role Phone Kim Mcmullen NP Primary Care Provider [phone] Allergies Active Allergy Reactions Criticality Noted Date [...] Encounters Date Type Department Care Team Description 11/18/2024 Patient Outreach [facility] [address] [place] [address] Kim Mcmullen NP Pre-visit Planning (SDOH negative, Tobacco screening negative) 11/15/2024 9:30 AM EDT Office Visit [facility] [address] [place] [address] Tita Owens LLD Stage 2 grade B generalized periodontitis per AAP/EFP 2017 classification (Primary Dx) 10/04/2024 Telephone [facility] MEDICINE [address] [place] [address] Joanna Oneill MA sep recall from Last 3 Months Immunizations Immunization Administration [...] Sign Reading Time Taken Comments Blood Pressure 142/81 11/15/2024 9:30 AM EDT Pulse 62 11/15/2024 9:30 AM EDT Temperature 36.2 C (97.1 F) 08/23/2024 [...] Description 11/28/2024 2:30 PM EDT Office Visit [facility] [address] [place] [address] Kim Mcmullen, SPLASH LINE OPERATOR [address] [place] [address] 11/29/2024 10:00 AM EDT Office Visit [facility] [address] [place] [address] Maira Lal LLD [address] [place] [address] 05/09/2025 11:00 AM EST Office Visit [facility] [address] [place] [address] Tita Owens LLD [address] [place] [address] Health Maintenance Due Date Last Done Comments [...] (4 - season) 2023 05/05/2020, 04/07/2020, 03/23/2020 Depression Screening 12/18/2023 12/17/2022, 12/18/19 23 Dental X-Ray: Full Mouth 02/01/2024 021, 11/22/2020, 06/26/2017 Influenza Vaccine (#1) 2024 Alcohol/Substance Use Screening 12/17/2024 12/18/2023 Dental X-Ray: Bitewings 04/15/2025 04/14/19 25, 11/27/2022, 11/22/2020, Additional history exists Dental Oral Exam 05/19/2025 11/15/2024, , 07/10/2023, Additional history exists Dental Prophylaxis 05/19/2025 11/15/2024, 0 07/10/2023, 11/27/2022, Additional history exists Tobacco Screening 08/23/2025 08/23/2024 SDOH Screening 11/18/2025 11/18/2024 Hepatitis C Screening Completed 01/21/2023 HIB Vaccines [...] Procedure Name Priority Date/Time Associated Diagnosis Comments ORAL HYGIENE INSTRUCTIONS Routine 11/15/2024 9:30 AM EDT Full PROPHYLAXIS - ADULT Routine 11/15/2024 9:30 AM EDT PERIODIC ORAL EVALUATION - ESTABLISHED PATIENT Routine 11/15/2024 9:30 AM EDT BITEWINGS - 4 RADIOGRAPHIC IMAGES Routine 04/14/2024 12:00 PM EST HEPATITIS PANEL, GENERAL Routine 01/21/2023 11:54 AM EDT Right upper quadrant pain PANORAMIC RADIOGRAPHIC IMAGE Routine 01/30/2021 12:00 AM EST from Last 3 Months or Most Recently Relevant to Health Maintenance Results * Hepatitis A,B,C Profile (01/21/2023 11:54 AM EDT) Hepatitis A IgM Nonreactive Nonreactive [facility] Comment:IgM antibodies to MCLAIN V not detected; does not exclude earlyacute or recovered HAV infection. ~Hepatitis B Surface Antibody NONREACTIVE Nonreactive [facility] Comment:Nonreactive: < 8.00 mIU/mL Hepatitis B Core Antibody Nonreactive Nonreactive [facility] Hepatitis C Antibody Nonreactive Nonreactive [facility] Comment:Antibodies to HCV no t detected; does not exclude early acuteHCV infection. Hepatitis B Surface Ag Negative Negative [facility] Blood Venous blood specimen / Unknown 01/21/2023 11:54 AM EDT 01/21/2023 3:52 PM EDT us Di Archuleta [facility] LAB BLOOD ORDERABLES Final Res ult [facility] [address] [place] [address] [phone] from Last 3 Months or Most Recently Relevant to Health Maintenance Insurance [facility] [employer] OPTIONS (HMO D-SNP) DENTAL - [facility] Care Teams Appliance Repair Technician Relationship Specialty Start Date End Date Kim Mcmullen NP [address] [place] [id number] PCP - General Family Medicine 10/19/23
--- OUTSIDE RECORDS SUMMARY | 2024-11-24 09:09 | XMS_ITS | Encounter Summary ---
Author Organization [employer] Address [address] 7[address] [place] [address] Care Team Providers Care Correctional Program Officer Name Role Phone Tami ArmendarizP Primary Care Provider [phone] Kim Mcmullen NP Primary Care Provider [phone] Reason for Visit * Reason Onset Date Comments Nurse Triage 01/19/2023 Encounter Details Date Type Department Care Team ([facility] st Contact Info) Description 01/19/2023 Telephone [facility] [address] [place], [place] [phone] Tami Armendariz FNP [address] [place], [place] [phone] Nurse Triage Social History Tobacco Use Types [...] Description 11/28/2024 2:30 PM EDT Office Visit [facility] [address] [place] [address] Kim Mcmullen NP [address] [place] [address] 11/29/2024 10:00 AM EDT Office Visit [facility] [address] [place] [address] Maira Lal D [address] [place] [address] 05/09/2025 11:00 AM EST Office Visit [facility] [address] [place] [address] Tita Owens Kitty [address] [place] [address] documented as of this encounter Visit Diagnoses Not on filedocumented in this encounter Additional Health Concerns Assessment Noted Time PHQ-9 Depression Total Score: 0 12/18/19 23 2:24 PM EDT documented as of this encounter Care Teams Correctional Program Officer Relationship Specialty Start Date End Date Tami Armendariz FNP [address] [place] [address] PCP - General Family Medicine 12/11/22 10/18/23 Kim Mcmullen NP [address] [place] [address] PCP - General Family Medicine 10/19/23 documented as of this encounter
--- OUTSIDE RECORDS SUMMARY | 2024-11-24 09:09 | XMS_ITS | Encounter Summary ---
Author Organization [employer] Address [address] 7[address] [place] [address] Care Team Providers Care Clinical Neuropsychologist Name Role Phone Tami ArmendarizP Primary Care Provider [phone] Kim Mcmullen CHAIN MAKER Primary Care Provider [phone] Encounter Details Date Type Department Care Team (Late st Contact Info) Description 02/11/2023 Abstract [facility] [address] [place] [address] Christina Murry Social History Tobacco Use Types [...] Description 11/28/2024 2:30 PM EDT Office Visit [facility] [address] [place], [place] [phone] Kim Mcmullen NP [address] [place], [place] [phone] 11/29/2024 10:00 AM EDT Office Visit [facility] [address] [place] [address] Maira Lal, D [address] [place] [address] 05/09/2025 11:00 AM EST Office Visit [facility] [address] [place] [address] Tita Owens D [address] [place] [address] documented as of this encounter Procedures Procedure [...] as of this encounter Care Teams Clinical Neuropsychologist Relationship Specialty Start Date End Date Tami Armendariz FNP [address] [place] [address] PCP - General Family Medicine 12/11/22 10/18/23 Kim Mcmullen NP [address] [place] [address] PCP - General Family Medicine 10/19/23 documented as of this encounter
--- OUTSIDE RECORDS SUMMARY | 2024-11-24 09:09 | XMS_ITS | Encounter Summary ---
Author Organization [employer] Address [address] [place] [address] Care Team Providers Care Set Up Operator Tool Name Role Phone Tami Armendariz Primary Care Provider [phone] Kim Mcmullen NP Primary Care Provider [phone] Reason for Visit * Reason Onset Date Comments Results 09/22/2023 Encounter Details Date Type Department Care Team ([facility] st Contact Info) Description 09/22/2023 Telephone [facility] MEDICINE [address] [place], [place] [phone] Tami Armendariz FNP [address] [place], [place] [phone] Results Social History Tobacco Use Types Packs/Day [...] if PCP wants to send referral for flooring helper for above concerns. Please review and advise. [...] results: Ultrasound Date when done: 08/30 Facility: [facility] documented in this encounter Plan of Treatment Upcoming Encounters Date Type Department Care Team (Late st Contact Info) Description 11/28/2024 2:30 PM EDT Office Visit [facility] MED[facility]INE [address] [place] [address] Kim Mcmullen NP [address] [place] [address] 11/29/2024 10:00 AM EDT Office Visit [facility] [address] [place] [address] Maira Lal LLD [address] [place] [address] 05/09/2025 11:00 AM EST Office Visit [facility] [address] [place] [address] Tita Owens Kitty [address] [place] [address] documented as of this encounter Visit Diagnoses Not on filedocumented in this encounter Additional Health Concerns Assessment Noted Time PHQ-9 Depression Total Score: 0 12/18/19 23 2:24 PM EDT documented as of this encounter Care Teams Set Up Operator Tool Relationship Specialty Start Date End Date Tami Armendariz FNP [address] [place] [address] PCP - General Family Medicine 12/11/22 10/18/23 Kim Mcmullen NP [address] [place] [address] PCP - General Family Medicine 10/19/23 documented as of this encounter
--- OUTSIDE RECORDS SUMMARY | 2024-11-24 09:09 | XMS_ITS | Encounter Summary ---
Author Organization [facility] Address [address] [place] [phone] Phone Care Team Providers Care Refrigerating Engineer Head Name Role Phone Aiden Preston MD Primary Care Provider Kim Mcmullen NP Primary Care Provider [phone] Encounter Details Date Type Department Care Team (Late st Contact Info) Description 11/18/2022 Procedure Pass [facility] Endoscopy Admitting Dept Virtual Department [address] [place] [address] Social History Tobacco Use Types Packs/Day Years [...] documented as of this encounter Care Teams Refrigerating Engineer Head Relationship Specialty Start Date End Date Aiden Preston MD [address] [address] [email or web address] PCP - General Internal Medicine 07/19/21 01/03/24 Kim Mcmullen NP [address] [address] PCP - General Nurse Practitioner 01/04/24 documented as of this encounter Additional Source Comments The information contained in this document represents components of the legal health record. It is not the complete legal health record.[facility]
--- OUTSIDE RECORDS SUMMARY | 2024-11-24 09:09 | XMS_ITS | Encounter Summary ---
Author Organization [facility] Address [address] [place] [address] [place] [phone] Phone Care Team Providers Care Tax Compliance Manager Name Role Phone Aiden Preston MD Primary Care Provider Kim Mcmullen NP Primary Care Provider [phone] Encounter Details Date Type Department Care Team (Latest Contact Info) Description 09/11/2021 Transcribe Orders Virtual Department [address] [place] [address] Joy Hughes MD [address] [place] [address], [address] [place] [address] [email or web address] Sensorineural hearing loss (SNHL), unspecified laterality (Primary Dx); Tinnitus of both ears Social History Tobacco Use Types Packs/Day Years [...] Answer Date Recorded Are you interested in help w ith more adult education (for example, completing high school, GED, job training, learning the Turkmen language, technical skills, or developing parenting skills)? No 08/29/2020 Food Answer Date Recorded Within the past [...] basis, and looking for work? No 08/29/2020 Comments Unknown Sex and Gender Information Value Date Recorded Sex Assigned at Female 04/02/2020 10:17 AM EST Legal Sex Female 6:24 PM EST Gender Identity Female 04/02/2020 10:17 AM EST Sexual Orientation Straight 10/25/2021 4: 24 PM EDT documented as of this encounter Plan of Treatment Not on file documented as of this encounter Visit Diagnoses Diagnosis Sensorineural hearing loss (SNHL), unspecified laterality- Primary Tinnitus of both ears Unspecified tinnitus documented in this encounter Additional Health Concerns Assessment Noted Time PHQ-2 Depression Total Score: 1 11/28/19 21 8:59 AM EDT documented as of this encounter Care Teams Tax Compliance Manager Relationship Specialty Start Date End Date Aiden Preston MD [address] [address] [email or web address] PCP - General Internal Medicine 07/19/21 01/03/24 Kim Mcmullen NP [address] [address] PCP - General Nurse Practitioner 01/04/24 documented as of this encounter Additional Source Comments The information contained in this document represents components of the legal health record. It is not the complete legal health record.[facility]
--- OUTSIDE RECORDS SUMMARY | 2024-11-24 09:09 | XMS_ITS | Encounter Summary ---
Author Organization [employer] Address [address] [facility] 7t [place] [address] Care Team Providers Care Blood Bank Manager Name Role Phone Tami ArmendarizP Primary Care Provider [phone] Kim Mcmullen [employer] Primary Care Provider [phone] Reason for Visit * Reason Onset Date Comments New Patient 11/05/2022 Encounter Details Date Type Department Care Team (Late st Contact Info) Description 11/05/2022 Telephone [facility] [address] [place], [place] [phone] Tami Armendariz FNP [address] [place], [place] [phone] New Patient Social History Tobacco Use Types [...] PAR Candie Conde called pt to Offer [employer] appt. Pt demographics and insurance information were verified. 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 Pt is currently taking medication: Thyroid Medication and a list Anti/ Supplements ( advised to please bring to appt date ) Pt given [employer] appt with Dr. Tami Armendariz on 12/17/2022 @ 2:15 pm. Pt will be sent appt reminder card and medical release form and agrees to complete and to return to medical records prior to [employer] appt. documented in this encounter Plan of Treatment Upcoming Encounters Date Type Department Care Team (Late st Contact Info) Description 11/28/2024 2:30 PM EDT Office Visit [facility] [address] [place] [address] Kim Mcmullen NP [address] [place] [address] 11/29/2024 10:00 AM EDT Office Visit [facility] [address] [place] [address] Maira Lal LLD [address] [place] [address] 05/09/2025 11:00 AM EST Office Visit [facility] [address] [place] [address] Tiat Owens LLD 9 [place] [address] documented as of this encounter Visit Diagnoses Not on filedocumented in this encounter Care Teams Blood Bank Manager Relationship Specialty Start Date End Date Tami Armendariz FNP [address] [place] [address] PCP - General Family Medicine 12/11/22 10/18/23 Kim Mcmullen NP 230 [place] [address] PCP - General Family Medicine 10/19/23 documented as of this encounter
--- OUTSIDE RECORDS SUMMARY | 2024-11-24 09:09 | XMS_ITS | Encounter Summary ---
Author Organization [facility] Address [address] [place] [address] Phone Care Team Providers Care Deputy Fire Marshal Name Role Phone Rosemarie Biggs MD Primary Care Provider [phone] Aiden Preston MD Primary Care Provider [phone] Kim Mcmullen NP Primary Care Provider [phone] Encounter Details Date Type Department Care Team (Latest Contact Info) Description 06/28/2021 Transcribe Orders Virtual Department [address] [place] [address] Aiden Preston MD [address] [place] [phone] [email or web address] Fatty food intolerance (Primary Dx); Kidney stone Social History Tobacco Use Types Packs/Day Years [...] high school, GED, job training, learning the Montenegrin language, technical skills, or developing parenting skills)? [...] on file documented as of this encounter Results * US ABDOMEN COMPLETE (ADULT) (07/19/2021 10:37 AM EDT) Anatomical Region Laterality Modality Abdomen Ultrasound 07/19/2021 2:44 PM EDT Impressions 07/19/2021 2:46 PM EDT No findings to account for the patient's symptoms. Narrative 07/19/2021 2:46 PM EDT COMPARISON: None. ABDOMEN ULTRASOUND FINDINGS: Liver: There are 2 sub-centimeters benign-appearing cysts with the largest measuring 9 mm in the left hepatic lobe. Gallbladder: Normal. Common bile duct: Normal-2 mm. Pancreas: Imaged pancreas is normal. Pancreatic tail is obscured by bowel gas. Kidneys: Left kidney is normal. Incidental right extrarenal pelvis. Otherwise unremarkable. Spleen: Normal. Proximal abdominal aorta/IVC/Main Portal Vein: Unremarkable. Procedure Note Dameon Holliday MD - 07/19/2021 COMPARISON: None. ABDOMEN ULTRASOUND FINDINGS: Liver: There are 2 sub-centimeters benign-appearing cysts with thelargest measuring 9 mm in the left hepatic lobe. Gallbladder: Normal. Common bile duct: Normal-2 mm. Pancreas: Imaged pancreas is normal. Pancreatic tail is obscured bybowel gas. Kidneys: Left kidney is normal. Incidental right extrarenal pelvis.Otherwise unremarkable. Spleen: Normal. Proximal abdominal aorta/IVC/Main Portal Vein: Unremarkable. IMPRESSION: No findings to account for the patient's symptoms. us Aiden Preston MD IMG US ABDOMEN Final Result documented in this encounter Visit Diagnoses Diagnosis Fatty food intolerance- Primary Kidney stone Calculus of kidney Fatty food intolerance documented in this encounter Additional Health Concerns Assessment Noted Time PHQ-2 Depression Total Score: 1 11/28/19 21 8:59 AM EDT documented as of this encounter Care Teams Deputy Fire Marshal Relationship Specialty Start Date End Date Rosemarie Biggs MD [address] [place] [address] [email or web address] PCP - General Family Medicine 07/27/20 07/18/21 Aiden Preston MD [address] [place] [phone] [email or web address] PCP - General Internal Medicine 07/19/21 01/03/24 Kim Mcmullen NP [address] [address] PCP - General Nurse Practitioner 01/04/24 documented as of this encounter Additional Source Comments The information contained in this document represents components of the legal health record. It is not the complete legal health record.[facility]
[2024-11-24 11:16] LABS: MANUAL DIFF FLAG NO
[2024-11-24 11:55] LABS: Alanine Aminotransferase 13 U/L (0-31); Albumin Level 4.5 g/dL (3.5-5.0); Alkaline Phosphatase 79 U/L (39-117); Anion Gap 13 (12-20); Aspartate Amino Transferase 27 U/L (5-31); Blood Urea Nitrogen 13 mg/dL (9-16); Calcium 9.4 mg/dL (8.4-10.2); Carbon Dioxide 28 mmol/L (22-29); Chloride 103 mmol/L (96-108); Estimated Glomerular Filt Rate > 60; Potassium 4.1 mmol/L (3.3-5.1); Sodium 140 mmol/L (135-145); Total Protein 7.4 g/dL (6.5-8.0)
[2024-11-24 12:12] LABS: Hematocrit 37.5 % (37.0-47.0); Hemoglobin 12.5 g/dl (12.0-16.0); Imm Gran Abs Auto 0.01 X10*3/uL (0.00-0.03); Imm Gran Pct Auto 0.2 % (0.0-0.4); Lymphocytes Absolute Auto 1.5 X10*3/uL (1.2-4.9); Mean Corpuscular HGB Conc 33.3 g/dl (31.0-35.0); Mean Corpuscular Hemoglobin 30.9 pg (27.0-33.0); Mean Corpuscular Volume 92.8 fL (80.0-98.0); NRBC Abs Auto 0.000 X10*3/uL (0.0-0.012); NRBC Pct Auto 0.0 /100WBC (0.0-0.2); Platelet Count 252 X10*3/uL (160-400); Red Blood Count 4.04 X10*6/uL (4.20-5.50); White Blood Count 5.9 X10*3/uL (4.8-10.8)
== END 2024-11-24 08:40 | disposition home or self-care (01) ==
LOC: HO.HHCL 08:39
PROVIDERS: PCP Nurse Practitioner Family; Visit Provider Nurse Practitioner Family
DX: K58.1 Irritable bowel syndrome with constipation (principal)
CPT/HCPCS: 36415; 80053; 85025

== ENCOUNTER 2025-02-23 09:06 | Outpatient (AMB) | payer OTHER, SELFPAY ==
--- OUTSIDE RECORDS SUMMARY | 2022-07-13 11:25 | XMS_ITS | Encounter Summary ---
Author Organization [facility] Address [address] [place] [id number] Phone Care Team Providers Care Building Serviceman Name Role Phone Aiden Preston MD Primary Care Provider [phone] Encounter Details Date Type Department Care Team (Late st Contact Info) Description 07/13/2022 12:25 PM EDT Hospital Encounter [facility] [address] [place] [phone] Carmel Lomas CNP [address] [place] [phone] Social History Tobacco Use Types Packs/Day Years Used Date Smoking Tobacco: Former Cigarettes 1.5 15 0 11/16/1964 - 11/17/1979 Smokeless Tobacco: Never Alcohol Use Standard Drinks/Week Comments Never 0 (1 standard drink = 0.6 oz pur e alcohol) Child or Family Care Answer Date Record ed Do you have problems with on e of the following making it difficult for you to work, study, or receive health care? No 08/29/2020 Education Answer Date Recorded Are you interested in more education? Not on caroline e 08/31/2022 Are you concerned about learning? Not on file 08/31/2022 No 08/31/2022 No 08/31/2022 Food Answer Date Recorded Within the past 6 months we worried whether our food would run out before we got money to buy more. Sometimes True 021 Within the past 6 months the food we bought just didn't last and we didn't have enough money to get more. Never True 11/2020 Residential Stability Answer Date Recor ded What is your housing situation today? I have eddie leyva 08/29/2020 How many times have you move d in the past 12 months? Zero (I did not move) 08/29/2020 Paying for Meds Answer Date Recorded Do you have trouble paying for medicines? No 08/29/2020 Paying Utility Bills Answer Date Record ed Do you have trouble paying your heating or elect ricity bill? No 08/29/2020 Transportation Answer Date Recorded Has the lack of transportati on kept you from medical appointments or from getting medications? No 08/29/2020 Unemployment Answer Date Recorded Are you currently unemployed or working on a part-time or temporary basis, and looking for work? No 08/29/2020 Digital Access Answer Date Recorded No 08/16/2022 No 08/16/2022 Reliable internet access at home? Not on file 08/16/2022 Device with a working camera? Not on file Comments Unknown Sex and Gender Information Value Date Recorded Sex Assigned at Female 04/02/2020 10:17 AM EST Legal Sex Female 6:24 PM EST Gender Identity Female 04/02/2020 10:17 AM EST Sexual Orientation Straight 10/25/2021 4: 24 PM EDT documented as of this encounter Plan of Treatment Upcoming Encounters Date Type Department Care Team (Late st Contact Info) Description 04/25/2025 1:45 PM EST Office Visit [facility] [address] [place] [phone] Unknown, Unknown, Laura Mcgregor PA-C [address] [place] [phone] [email or web address] documented as of this encounter Procedures Procedure Name Priority Date/Time Associated Diagnosis Comments XR FOOT 3 OR MORE VIEWS (RIGHT) Urgent/patient waiting 07/13/2022 12:40 PM EDT Right foot pain documented in this encounter Results * XR FOOT 3 OR MORE VIEWS (RIGHT) (07/13/2022 12:40 PM EDT) Anatomical Region Laterality Modality Foot Right Computed Radiogr aphy 07/13/2022 12:4 8 PM EDT Impressions 07/13/2022 1:10 PM EDT No fracture or dislocation. ATTESTATION: Rudy Franco as teaching physician, have reviewed the images for this case and if necessary edited the report originally created by Dr. Isis Verduzco. Narrative 07/13/2022 1:10 PM EDT XR FOOT 3 OR MORE VIEWS (RIGHT) COMPARISON: None FINDINGS: No fracture. Normal alignment. Diffuse osteopenia. No definite soft tissue swelling. Procedure Note Rudy Cooper MD - 07/13/2022 XR FOOT 3 OR MORE VIEWS (RIGHT) COMPARISON: None FINDINGS: No fracture. Normal alignment. Diffuse osteopenia. No definite soft tissueswelling. IMPRESSION: No fracture or dislocation. ATTESTATION: IRudy as teaching physician, have reviewed theimages for this case and if necessary edited the report originally createdby Dr. Isis Verduzco. Carmel Lomas SENIOR APPLICATIONS DEVELOPER IMG XR LOWER EXTREMITY Manda l Result documented in this encounter Visit Diagnoses Not on filedocumented in this encounter Additional Health Concerns Assessment Noted Time PHQ-2 Depression Total Score: 1 11/28/19 21 8:59 AM EDT documented as of this encounter Care Teams Building Serviceman Relationship Specialty Start Date End Date Aiden Preston MD [address] [phone] [email or web address] [email or web address] - General Internal Medicine 07/19/21 01/03/24 documented as of this encounter Additional Source Comments The information contained in this document represents components of the legal health record. It is not the complete legal health record.[facility]
--- NOTE | 2025-02-23 09:20 | MHC.OFFVIS ---
Vital Signs 02/23/25 09:21 Height 5 ft Weight 101 lb 13.657 oz BMI 19.9 BP 118/60 Blood Pressure Location Lt brachial Position Sitting Pulse 77 Pulse Source Pulse Oximeter Intake Visit Reasons: 4m follow up Solutions Manager Required: No Allergies Penicillins Allergy (Mild, Verified 02/23/25 09:24) Hives Medication List - Last Reconciled 02/23/25 by Ines Ugarte, MIKHAIL-C levothyroxine 25 mcg PO BID liothyronine 5 mcg PO BID ondansetron HCl 4 mg PO Q8H HPI HPI 4m follow up: Details: Stephie is a 74-year-old female with past medical history of orthostatic hypotension, Mast cell activation syndrome, Hank-Danlos syndrome, symptoms of dysautonomia who presents for follow-up. Today she reports that she has been under a lot of stress recently with family health issues. She has been traveling back and forth to [facility] to help care for her son-in-law. She has been doing generally well with her symptoms of lightheadedness. She has not had any presyncope or syncope. When she does not feel well she lays down for a period of time and her symptoms improve. She maintains good hydration and uses extra salt. She still gets heart palpitations which occur during activities but has been trying to increase her walking. No chest discomfort brought on by physical activity. 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 She describes that most of her symptoms occurred post COVID vaccines. She is still following with her PCP and a magnetic grinder operator. She follows a vegan diet and tries to remain physically active. She has not been able to wear compression stockings as her skin is sensitive and they are uncomfortable. [facility] Medical History Orthostatic hypotension Osteoporosis Scoliosis GERD (gastroesophageal reflux disease) Depressive disorder Asthma Family History Mother Ovarian cancer Father Alcoholism Brother Prostate cancer Maternal Grandfather Heart attack Social History Alcohol intake: former Patient Tobacco Use Status: Former Tobacco user Review of Systems Const Details: high stress levels All systems reviewed & are unremarkable except as noted in HPI and below ENT Denies dizziness Card Denies chest pain, Denies chest pain at rest, Denies chest pain with activity, Denies rapid heart rate, Denies pedal edema, Denies edema, Denies leg edema, Denies lightheadedness, Denies palpitations, Denies dyspnea, Denies dyspnea on exertion and Denies orthopnea Resp Denies cough, Denies dyspnea and Denies dyspnea on exertion GI Denies hematochezia and Denies change in stool character Musc Denies abnormal gait, Reports limited range of motion, Denies muscle cramps, Denies muscle weakness, Denies numbness, Denies radiating pain into limb, Denies stiffness and Denies tingling Neuro Denies abnormal gait, Denies dizziness, Denies numbness and Denies tingling Endo Denies palpitations Physical Exam Vital Signs: Last Vital Signs Pulse 77 02/23/25 09:21 BP 118/60 02/23/25 09:21 BMI result Body Mass Index 19.9 Const General: cooperative, healthy appearing, comfortable and no acute distress Orientation/consciousness: patient oriented x3 Neck Neck: Yes normal visual inspection Resp Effort & Inspection: normal respiratory effort Auscultation: clear to auscultation bilaterally, no rales, no rhonchi and no wheezes Cardio Jugular venous distension: no JVD Rate: regular rate Rhythm: regular rhythm Heart sounds: S1 normal heart sound present, S2 normal heart sound present, no gallops, no murmurs and no rubs Neuro General: patient oriented x3 Extrem General: Yes normal to inspection, No no pedal edema and No calf tenderness Psych Appearance: grossly normal Mental Status: mental status grossly normal Speech and movement: Normal speech and movement present Assessment & Plan Assessment & Plan (1) Dizziness: Code(s): R42 - Dizziness and giddiness Category: Medical Plan: Prior reports of Multi symptoms including lightheadedness, heart palpitations, fatigue. She has had low blood pressures in the past, with orthostatic readings, which improved some with increased salt intake. Echocardiogram done 06/07/2024 shows EF 65-70%, impaired relaxation, normal valves and normal RV. Tilt-table test done on 10/04/2024 was negative study. She has been managing her symptoms conservatively and has been doing better recently. She is having high stress levels which she has been tolerating. Reviewed good hydration, continue use of added salt, exercise as able. - cardiology follow-up 6 months (2) Abnormal EKG: Code(s): R94.31 - Abnormal electrocardiogram [ECG] [EKG] Category: Medical Plan: Her EKG does show septal Q-wave. No known cardiac history. She did have echocardiogram which shows normal EF and wall motion. Exercise stress test 07/05/2024 with exercise 5.5 minutes with symptoms of lightheadedness and heart palpitations with no EKG changes of ischemia. Test results reviewed with her. Septal Q-wave could be related to lead placement. Plan I saw the patient for a follow-up of her dysautonomia. We discussed her symptoms of lightheadedness and palpitations, and I reassured her that palpitations with exercise are a normal response and that her conditioning will improve with continued activity. I recommended staying well-hydrated, ensuring adequate rest, and adjusting salt intake based on its effect on her interstitial cystitis symptoms. The patient reported significant stress from family medical issues, which has exacerbated other conditions like her IBS. In response to her request for Zofran for nausea, I advised her that this medication needs to be managed by her primary care physician. The patient demonstrates good insight and self-management of her multiple chronic conditions, adjusting her regimen based on her body's response. I advised her to follow up with me in six months, or sooner if her cardiac symptoms, such as lightheadedness, worsen. Patient Instructions: - Continue with your physical activity, such as walking up inclines. - It is normal for your heart to pound during exercise, and this will get easier as you do it more often. - Make sure to drink plenty of fluids to stay hydrated. - It is okay to use salt in your diet for your heart condition, but pay attention to your body and reduce the amount if you find it makes your bladder symptoms worse. - Try to get adequate rest, as you are under a lot of stress. - Schedule a follow-up appointment in about six months. - If your symptoms of lightheadedness get worse before then, please call our office. Patient was informed and verbally consented to the use of an ambient scribe for clinic note documentation during this visit. Visit time spent on chart review, interview, assessment, orders, documentation. Coding Level of Care Code Est Pt Level 3 (92835) Complex visit Add On G2211 Diagnoses Dizziness R42 Abnormal EKG R94.31 Time Spent (min) 24
[2025-02-23 09:21] VITALS: BP 118/60; PULSE 77; BMI 19.9
--- OUTSIDE RECORDS SUMMARY | 2025-02-23 09:56 | XMS_ITS | Encounter Summary ---
Author Organization [employer] Address [address] [facility] [address] 7[address] [place] [address] Care Team Providers Care Bench Molder Apprentice Name Role Phone Tami ArmendarizP Primary Care Provider [phone] Kim Mcmullen NP Primary Care Provider [phone] Reason for Visit * Reason Onset Date Comments Nurse Triage 01/19/2023 Encounter Details Date Type Department Care Team ([facility] st Contact Info) Description 01/19/2023 Telephone [facility] [address] [place], [place] [phone] Tami Armendariz FNP [address] [place], [place] [phone] Nurse Triage Social History Tobacco Use Types [...] Care Team (Late st Contact Info) Description 04/11/2025 1:45 PM EST Office Visit [facility] [address] [place] [address] Kim Mcmullen NP [address] [place] [address] 05/09/2025 11:00 AM EST Office Visit [facility] [address] [place] [address] Tita Owens LLD 9 [place] [address] documented as of this encounter Visit Diagnoses Not on filedocumented in this encounter Additional Health Concerns Assessment Noted Time PHQ-9 Depression Total Score: 0 12/18/19 23 2:24 PM EDT documented as of this encounter Care Teams Bench Molder Apprentice Relationship Specialty Start Date End Date Tami Armendariz FNP [address] [place] [address] PCP - General Family Medicine 12/11/22 10/18/23 Kim Mcmullen NP [address] [place] [address] PCP - General Family Medicine 10/19/23 documented as of this encounter
--- OUTSIDE RECORDS SUMMARY | 2025-02-23 09:56 | XMS_ITS | Clinical Summary ---
Author Organization [employer] Address 75 [facility] 7t [place] [address] Care Team Providers Care Charge Manager Name Role Phone Kim Mcmullen NP Primary Care Provider [phone] Allergies Active Allergy Reactions Criticality Noted Date [...] Pressure Monitoring (Blood Pressure Cuff) miscIndications: Dysautonomia (CMS/HCC) (HCC),Orthostati c hypotension 1 kit Once per day. 1 [...] 11:46 AM EST): Referral to audiology Dysautonomia ([facility]/HCC) 12/18/2023 Assessment & Plan (02/07/2024 11:45 AM EST): Continue increased salt intake with adequate hydration Monitor bp Compression stockings ordered Assessment & Plan (01/17/2024 11:31 AM EDT): Pt with hank danlos, and associated vertiginous symptoms, will refer to preferred cardiology team, encouraged increase salt, hydration and compression stockings Orthostatic hypotension 12/18/2023 Overview (11/28/2024): Echocardiogram done 06/07/2024 shows EF 65-70%, impaired relaxation, normal valves and normal RV. Tilt-table test done on 10/04/2024 was negative study. Assessment & Plan (12/14/2024 9:46 AM EDT): Orders: Referral to Gastroenterology; Future Metatarsalgia of both feet 12/18/2023 Absence of [...] a healthy diet, vegan. Assessment & Plan (12/14/2024 9:46 AM EDT): Orders: Referral to Gastroenterology; Future Assessment & Plan (08/23/2024 4:27 PM EDT): [...] Encounters Date Type Department Care Team Description 01/05/2025 Telephone [facility] [address] [place] [address] Kim Mcmullen NP DEC RECALL 11/29/2024 10:00 AM EDT Office Visit [place] [facility] [address] [place] [address] Maira Lal LLD 11/28/2024 2:30 PM EDT Office Visit [facility] [address] [place] [address] Kim Mcmullen NP Orthostatic hypotension (Primary Dx); Other irritable bowel syndrome; Other idiopathic scoliosis, unspecified spinal region 11/28/2024 Travel 11/25/2024 Telephone [facility] [address] [place] [address] Kim Mcmullen NP Chart Prep from Last 3 Months Immunizations Immunization Administration Dates Next Due Pfizer Covid-19 Vaccine 12+ 04/07/2020, Pneumococcal Conjugate PCV 13 11/17/2019 TD (adult), [...] Sign Reading Time Taken Comments Blood Pressure 114/70 11/29/2024 10:02 AM EDT Pulse 58 11/29/2024 10:02 AM EDT Temperature 36.6 C (97.8 F) 11/28/2024 2:29 PM EDT Respiratory Rate 17 11/28/2024 2:29 PM EDT Oxygen Saturation 99% 11/28/2024 2:29 PM EDT Inhaled Oxygen Concentration - - Weight 47 kg (103 lb 9.6 oz) 11/28/2024 2:29 PM EDT Height 152.4 cm (5') 11/28/2024 2:29 PM EDT Body Mass Index 20.23 11/28/2024 2:29 PM EDT Plan of Treatment Upcoming Encounters Date Type Department Care Team (Late st Contact Info) Description 04/11/2025 1:45 PM EST Office Visit [facility] [address] [place] [address] Kim Mcmullen NP [address] [place] [address] 05/09/2025 11:00 AM EST Office Visit [place] [facility] [address] [place] [address] Tita Owens LLD 9 [place] [address] Health Maintenance Due Date Last Done Comments CT Colonography 1950 Colonoscopy 1950 Colorectal Cancer Screening 1950 FIT DNA/Cologuard 1950 FIT 1950 FOBT 1950 Sigmoidoscopy 1950 Alcohol/Substance Use Screening 1962 Mammogram 1990 RSV Patients and Patients Aged 60 years or older (1 - Risk 50-74 years 1-dose series) 2000 Zoster Vaccines (1 of 2) 2000 DTaP/Tdap/Td Vaccines (1 - Tdap) 11/18/2019 11/17/2019, 03/16/2010 Pneumococcal Vaccine: 50+ Years (2 of 2 - PPSV23, PCV20, or PCV21) 01/12/2020 11/17/2019 Depression Screening 12/18/2023 12/17/2022, 12/18/19 Dental X-Ray: Full Mouth 02/01/2024 021, 11/22/2020, 06/26/2017 COVID-19 Vaccine ( season) 2024 05/05/2020, 04/07/2020, 03/23/2020 Influenza Vaccine (#1) 2024 Dental X-Ray: Bitewings 04/15/2025 04/14/19 25, 11/27/2022, 11/22/2020, Additional history exists Dental Oral Exam 05/19/2025 11/15/2024, , 07/10/2023, Additional history exists Dental Prophylaxis 05/19/2025 11/15/2024, 0 07/10/2023, 11/27/2022, Additional history exists SDOH Screening 11/18/2025 11/18/2024 Tobacco Screening 11/29/2025 11/29/2024 Hepatitis C Screening Completed 01/21/2023 HIB Vaccines [...] Procedure Name Priority Date/Time Associated Diagnosis Comments LIMITED ORAL EVALUATION - PROBLEM FOCUSED Routine 11/29/2024 10:00 AM EDT COMPREHENSIVE METABOLIC PANEL Routine 11/24/2024 8:42 AM EDT Irritable bowel syndrome with constipation CBC WITH AUTO DIFFERENTIAL Routine 11/24/2024 8:42 AM EDT Irritable bowel syndrome with constipation Full PROPHYLAXIS - ADULT Routine 11/15/2024 9:30 AM EDT PERIODIC ORAL EVALUATION - ESTABLISHED PATIENT Routine 11/15/2024 9:30 AM EDT BITEWINGS - 4 RADIOGRAPHIC IMAGES Routine 04/14/2024 12:00 PM EST HEPATITIS PANEL, GENERAL Routine 01/21/2023 11:54 AM EDT Right upper quadrant pain PANORAMIC RADIOGRAPHIC IMAGE Routine 01/30/2021 12:00 AM EST from Last 3 Months or Most Recently Relevant to Health Maintenance Results * (ABNORMAL) CBC auto differential (11/24/2024 8:42 AM EDT) White Blood Count 5.9 4.8 - 10.8 X10*3/uL [facility] Red Blood Count 4.04(L) 4.20 - 5.50 X10*6/uL [facility] Hemoglobin 12.5 12.0 - 16.0 g/dl [facility] Hematocrit 37.5 37.0 - 47.0 % [facility] Mean Corpuscular Volume 92.8 80.0 - 98.0 fL [facility] Mean Corpuscular Hemoglobin 30.9 27.0 - 33.0 pg [facility] Mean Corpuscular HGB Conc 33.3 31.0 - 35.0 g/dl [facility] Red Cell Distribution Width 13.4 11.0 - 16.0 % [facility] Platelet Count 252 160 - 400 X10*3/uL [facility] Mean Platelet Volume 10.9 9.4 - 12.3 fL [facility] Neutrophils Percent Auto 54.5 45 - 73 % [facility] Imm Gran Pct Auto 0.2 0.0 - 0.4 % [facility] Lymphocytes Percent Auto 26.0 20 - 40 % [facility] Monocytes Percent Auto 8.9 2 - 11 % [facility] Eosinophils Percent Auto 9.2(H) 0 - 4 % [facility] Basophils Percent Auto 1.2 0 - 2 % [facility] NRBC Pct Auto 0.0 0.0 - 0.2 /100WBC [facility] Neutrophils Absolute Auto 3.2 2.0 - 8.3 x10*3/uL [facility] Imm Gran Abs Auto 0.01 0.00 - 0.03 X10*3/uL [facility] Lymphocytes Absolute Auto 1.5 1.2 - 4.9 X10*3/uL [facility] Monocytes Absolute Auto 0.5 0.1 - 1.2 X10*3/uL [facility] Eosinophils Absolute Auto 0.5(H) 0.0 - 0.4 X10*3/uL [facility] Basophils Absolute Auto 0.1 0.0 - 0.2 X10*3/uL [facility] NRBC Abs Auto 0.000 0.0 - 0.012 X10*3/uL [facility] Blood Venous blood specimen / Unknown 11/24/2024 8:42 AM EDT 11/24/2024 11:10 AM EDT us Kim Mcmullen GRAPHIC ENGINEER LAB BLOOD ORDERABLES Final Resul t [facility] [address] [place], [place] [phone] * Comprehensive Metabolic Panel (11/24/2024 8:42 AM EDT) Sodium 140 135 - 145 mmol/L [facility] Potassium 4.1 3.3 - 5.1 mmol/L [facility] Chloride 103 96 - 108 mmol/L [facility] Carbon Dioxide 28 22 - 29 mmol/L [facility] Anion Gap 13 12 - 20 [facility] Urea Nitrogen (BUN) 13 9 - 16 mg/dL [facility] Creatinine, Serum 0.64 0.5 - 1.4 mg/dL [facility] Estimated Glomerular Filt Rate >60 [facility] Comment:Chronic Kidney Disea se: Estimated GFR < 60 mL/min/[id number] Kidney Disease: Estimated GFR < 15 mL/min/1.73m2 Glucose 89 60 - 115 mg/dL [facility] Calcium 9.4 8.4 - 10.2 mg/dL [facility] Bilirubin, Total 0.5 0.0 - 1.0 mg/dL [facility] Aspartate Amino Transferase 27 5 - 31 U/L [facility] Alanine Aminotransferase 13 0 - 31 U/L [facility] Total Protein 7.4 6.5 - 8.0 g/dL [facility] Albumin Level 4.5 3.5 - 5.0 g/dL [facility] Alkaline Phosphatase 79 39 - 117 U/L [facility] Blood Venous blood specimen / Unknown 11/24/2024 8:42 AM EDT 11/24/2024 11:10 AM EDT us Kim Mcmullen GRAPHIC ENGINEER LAB BLOOD ORDERABLES Final Resul t Performing Organization Address [facility]/ZIP Co de Phone Number [facility] [address] [place] [phone] * Hepatitis A,B,C Profile (01/21/2023 11:54 AM EDT) Hepatitis A IgM Nonreactive Nonreactive [facility] Comment:IgM antibodies to MCLAIN V not detected; does not exclude earlyacute or recovered HAV infection. ~Hepatitis B Surface Antibody NONREACTIVE Nonreactive [facility] Comment:Nonreactive: < 8.00 mIU/mL Hepatitis B Core Antibody Nonreactive Nonreactive [facility] Hepatitis C Antibody Nonreactive Nonreactive [facility] Comment:Antibodies to HCV no t detected; does not exclude early acuteHCV infection. Hepatitis B Surface Ag Negative Negative [facility] Blood Venous blood specimen / Unknown 01/21/2023 11:54 AM EDT 01/21/2023 3:52 PM EDT us Di Archuleta SURGICAL INSTRUMENTS INSPECTOR LAB BLOOD ORDERABLES Final Res ult Performing Organization Address [facility]/ZIP Co de Phone Number [facility] [address] [place] [address] [phone] from Last 3 Months or Most Recently Relevant to Health Maintenance Insurance [facility] STANDARD [facility] FDC OPTIONS (HMO D-SNP) DENTAL - HSN FULL (MEDICAID) DENTAL [facility] Care Teams Charge Manager Relationship Specialty Start Date End Date Kim Mcmullen NP [address] [place] [phone] PCP - General Family Medicine 10/19/23
--- OUTSIDE RECORDS SUMMARY | 2025-02-23 09:56 | XMS_ITS | Encounter Summary ---
Author Organization [employer] Address [address] [facility] 7t [place] [address] Care Team Providers Care Domain Architect Name Role Phone Tami Armendariz Primary Care Provider [phone] Kim Mcmullen NP Primary Care Provider [phone] Encounter Details Date Type Department Care Team (Late st Contact Info) Description 12/17/[address] [facility] [address] [place] [address] Tami Armendariz FNP [address] [place] [address] Social History Tobacco Use Types Packs/Day Years [...] down Not at all 12/17/2022 2:24 PM [place] Sch[place], [place] Trouble concentrating on thi ngs, such as reading the newspaper or watching television Not at all 12/17/2022 2:24 PM Collins Myles M A Moving or speaking so slowly [...] Questionnaire -9 Score 0 12/17/2022 2:24 PM Collins Myles M A documented as of this encounter Plan of Treatment Upcoming Encounters Date Type Department Care Team (Late st Contact Info) Description 04/11/2025 1:45 PM EST Office Visit [facility] [address] [place] [address] Kim Mcmullen NP [address] [place] [address] 05/09/2025 11:00 AM EST Office Visit [facility] [address] [place] [address] Tita Owens LLD 9 [place] [address] documented as of this encounter Visit Diagnoses Not on filedocumented in this encounter Additional Health Concerns Assessment Noted Time PHQ-9 Depression Total Score: 0 12/18/19 23 2:24 PM EDT documented as of this encounter Care Teams Domain Architect Relationship Specialty Start Date End Date Tami Armendariz FNP [address] [place] [address] PCP - General Family Medicine 12/11/22 10/18/23 Kim Mcmullen NP [address] [place] [address] PCP - General Family Medicine 10/19/23 documented as of this encounter
--- OUTSIDE RECORDS SUMMARY | 2025-02-23 09:56 | XMS_ITS | Encounter Summary ---
Author Organization Located [facility] Address [address] [place] [phone] Phone Care Team Providers Care Community Support Professional Name Role Phone Aiden Preston MD Primary Care Provider Kim Mcmullen NP Primary Care Provider [phone] Encounter Details Date Type Department Care Team (Late st Contact Info) Description 11/18/2022 Procedure Pass [facility] Endoscopy Admitting Dept Virtual Department [address] [place] [address] Social History Tobacco Use Types Packs/Day Years [...] Upcoming Encounters Date Type Department Care Team ([facility] st Contact Info) Description 04/25/2025 1:45 PM EST Office Visit [facility] Gastroenterology Clinic [address] [place] [address] Unknown, Unknown, Laura Mcgregor PA-C [address] [address] [email or web address] documented as of this encounter Visit Diagnoses Not on filedocumented in this encounter Additional Health Concerns Assessment Noted Time PHQ-2 Depression Total Score: 1 11/28/19 21 8:59 AM EDT documented as of this encounter Care Teams Community Support Professional Relationship Specialty Start Date End Date Aiden Preston MD [address] [place] [phone] [email or web address] PCP - General Internal Medicine 07/19/21 01/03/24 Kim Mcmullen NP [address] [address] PCP - General Nurse Practitioner 01/04/24 documented as of this encounter Additional Source Comments The information contained in this document represents components of the legal health record. It is not the complete legal health record.Loc[facility]
--- OUTSIDE RECORDS SUMMARY | 2025-02-23 09:56 | XMS_ITS | Encounter Summary ---
Author Organization [employer] Address 75 [facility] 7t [place] [address] Care Team Providers Care Crm Specialist Name Role Phone Tami Armendariz Primary Care Provider [phone] Kim Mcmullen NP Primary Care Provider [phone] Encounter Details Date Type Department Care Team [...] Description 04/11/2025 1:45 PM EST Office Visit [facility] [address] [place] [address] Kim Mcmullen NP [address] [place] [address] 05/09/2025 11:00 AM EST Office Visit [facility] [address] [place] [address] Tita Owens LLD [address] [place] [address] documented as of this encounter Visit Diagnoses Not on filedocumented in this encounter Care Teams Crm Specialist Relationship Specialty Start Date End Date Tami Armendariz FNP [address] [place] [address] PCP - General Family Medicine 12/11/22 10/18/23 Kim Mcmullen NP [address] [place] [address] PCP - General Family Medicine 10/19/23 documented as of this encounter
--- OUTSIDE RECORDS SUMMARY | 2025-02-23 09:57 | XMS_ITS | Encounter Summary ---
Author Organization [employer] Address 75 [facility] 7t [place] [address] Care Team Providers Care Plug Shaper Hand Name Role Phone Tami ArmendarizP Primary Care Provider [phone] Kim Mcmullen RECREATIONAL LEADER Primary Care Provider [phone] Reason for Visit * Reason Onset Date Comments New Patient 11/05/2022 Encounter Details Date Type Department Care Team (Late st Contact Info) Description 11/05/2022 Telephone [facility] [address] [place], [place] [phone] Tami Armendariz FNP [address] [place], [place] [phone] New Patient Social History Tobacco Use Types [...] PAR Candie Conde called pt to Offer RECREATIONAL LEADER appt. Pt demographics and insurance information were verified. 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 Pt is currently taking medication: Thyroid Medication and a list Anti/ Supplements ( advised to please bring to appt date ) Pt given RECREATIONAL LEADER appt with Dr. Tami Armendariz on 12/17/2022 @ 2:15 pm. Pt will be sent appt reminder card and medical release form and agrees to complete and to return to medical records prior to RECREATIONAL LEADER appt. documented in this encounter Plan of Treatment Upcoming Encounters Date Type Department Care Team (Late st Contact Info) Description 04/11/2025 1:45 PM EST Office Visit [facility] [address] [place] [address] Kim Mcmullen NP [address] [place] [address] 05/09/2025 11:00 AM EST Office Visit [facility] [address] [place] [address] Tita Owens LLD [address] [place] [address] documented as of this encounter Visit Diagnoses Not on filedocumented in this encounter Care Teams Plug Shaper Hand Relationship Specialty Start Date End Date Tami Armendariz FNP [address] [place] [address] PCP - General Family Medicine 12/11/22 10/18/23 Kim Mcmullen NP [address] [place] [address] PCP - General Family Medicine 10/19/23 documented as of this encounter
--- OUTSIDE RECORDS SUMMARY | 2025-02-23 09:57 | XMS_ITS | Encounter Summary ---
Author Organization [employer] Address [address] [facility] [address] 7t [place] [address] Care Team Providers Care Manager Pet Name Role Phone Tami Armendariz Primary Care Provider [phone] Kim Mcmullen NP Primary Care Provider [phone] Reason for Visit * Reason Onset Date Comments Results 05/20/2023 Encounter Details Date Type Department Care Team ([facility] st Contact Info) Description 05/20/2023 Telephone [facility]INE [address] [place], [place] [phone] Tami Armendariz FNP [address] [place], [place] [phone] Results Social History Tobacco Use Types Packs/Day [...] Date when done: 04/17 Facility: [facility] Please contact pt at [phone] documented in this encounter Plan of Treatment Upcoming Encounters Date Type Department Care Team (Late st Contact Info) Description 04/11/2025 1:45 PM EST Office Visit [facility] [address] [place] [address] Kim Mcmullen NP [address] [place] [address] 05/09/2025 11:00 AM EST Office Visit [facility] [address] [place] [address] Tita Owens LLD 9 [place] [address] documented as of this encounter Visit Diagnoses Not on filedocumented in this encounter Additional Health Concerns Assessment Noted Time PHQ-9 Depression Total Score: 0 12/18/19 23 2:24 PM EDT documented as of this encounter Care Teams Manager Pet Relationship Specialty Start Date End Date Tami Armendariz FNP [address] [place] [address] PCP - General Family Medicine 12/11/22 10/18/23 Kim Mcmullen NP [address] [place] [address] PCP - General Family Medicine 10/19/23 documented as of this encounter
--- OUTSIDE RECORDS SUMMARY | 2025-02-23 09:57 | XMS_ITS | Encounter Summary ---
Author Organization [employer] Address [address] [facility] [address] 7[address] [place] [address] Care Team Providers Care Videogame Designer Name Role Phone Tami ArmendarizP Primary Care Provider [phone] Kim Mcmullen UNLOADER OPERATOR Primary Care Provider [phone] Encounter Details Date Type Department Care Team (Late st Contact Info) Description 02/11/2023 Abstract [facility] [address] [place] [address] Christina Murry Social History Tobacco Use Types [...] Description 04/11/2025 1:45 PM EST Office Visit [facility] [address] [place] [address] Kim Mcmullen NP [address] [place] [address] 05/09/2025 11:00 AM EST Office Visit [facility] [address] [place] [address] Tita Owens LLD 9 [place] [address] documented as of this encounter Procedures Procedure [...] documented as of this encounter Care Teams Videogame Designer Relationship Specialty Start Date End Date Tami Armendariz FNP [address] [place] [address] PCP - General Family Medicine 12/11/22 10/18/23 Kim Mcmullen NP [address] [place] [address] PCP - General Family Medicine 10/19/23 documented as of this encounter
--- OUTSIDE RECORDS SUMMARY | 2025-02-23 09:57 | XMS_ITS | Clinical Summary ---
Author Organization [facility] Address [address] [place] [phone] Phone Care Team Providers Care Clinical Trial Educator Name Role Phone Kim Mcmullen RIGOBERTO Primary Care Provider [phone] Surgical History Surgery Date Site/Laterality Comments OTHER [...] Last Done Comments Breast Cancer Screening 1950 Colorectal Cancer Screening: Colonoscopy 1950 RSV Immunization Adult Patients (1 - Risk 50-74 years 1-dose series) 2000 Zoster Vaccines (1 of 2) 2000 Pneumococcal Vaccine: 50+ Years (2 of 2 - PPSV23, PCV20, or PCV21) 01/12/2020 11/17/2019 Falls Risk Assessment 02/22/2022 Hepatitis C Screening [...] patient's age to complete this topic Insurance [facility] Member Subscriber Plan / Payer (Ef fective 2023-Present) Name:Stephie Lombardo Relation to Subscriber:Self Name:Stephie Lombardo Payer ID:[id number] Group ID:[id number] Type:Not on file Address: [address] [place] [phone] [facility] MEDICAID Care Teams Clinical Trial Educator Relationship Specialty Start Date End Date Kim Mcmullen FNP [address] [place] [phone] PCP - General Nurse Practitioner 07/18/24
--- OUTSIDE RECORDS SUMMARY | 2025-02-23 09:57 | XMS_ITS | Encounter Summary ---
Author Organization [facility] Address [address] [place] [phone] Phone Care Team Providers Care Outside Event Sales Specialist Name Role Phone Rosemarie Biggs MD Primary Care Provider [phone] Aiden Preston MD Primary Care Provider [phone] Kim Mcmullen NP Primary Care Provider [phone] Encounter Details Date Type Department Care Team (Latest Contact Info) Description 06/28/2021 Transcribe Orders Virtual Department [address] [place] [address] Aiden Preston MD [address] [place] [phone] [email or web address] Fatty food intolerance (Primary Dx); Kidney stone [...] high school, GED, job training, learning the [place] language, technical skills, or developing parenting skills)? [...] Description 04/25/2025 1:45 PM EST Office Visit [facility] [address] [place] [address] Unknown, Unknown, Laura Mcgregor PA-C [address] [place] [phone] [email or web address] documented as of this encounter Results * [...] documented as of this encounter Care Teams Outside Event Sales Specialist Relationship Specialty Start Date End Date Rosemarie Biggs MD [address] [place] [phone] PCP - General Family Medicine 07/27/20 07/18/21 Aiden Preston MD [address] [place] [phone] [email or web address] PCP - General Internal Medicine 07/19/21 01/03/24 Kim Mcmullen NP [address] [place] [address] PCP - General Nurse Practitioner 01/04/24 documented as of this encounter Additional Source Comments The information contained in this document represents components of the legal health record. It is not the complete legal health record.[facility]
--- OUTSIDE RECORDS SUMMARY | 2025-02-23 09:57 | XMS_ITS | Encounter Summary ---
Author Organization [facility] Address [address] [place] [address] Phone Care Team Providers Care Professor Of Musicology Name Role Phone Aiden Preston MD Primary Care Provider Fabienne Jade DO Primary Care Provider [phone] Rosemarie Biggs MD Primary Care Provider [phone] Aiden Preston MD Primary Care Provider Kim Mcmullen NP Primary Care Provider [phone] Encounter Details Date Type Department Care Team (Late Contact Info) Description 09/06/2018 Procedure Pass [facility] Endoscopy Admitting Dept Virtual Department [address] [place] [address] Social History Tobacco Use Types Packs/Day Years [...] Encounters Date Type Department Care Team (Late Contact Info) Description 04/25/2025 1:45 PM EST Office Visit [facility] [address] [place] [address] Unknown, Unknown, Laura Mcgregor PA-C [address] [address] [email or web address] documented as of this encounter Visit Diagnoses Not on filedocumented in this encounter Additional Health Concerns Infection Onset Date Last Indicated Resolved Time CoV-Risk 03/02/2020 03/03/2020 03/17/2020 1:23 AM EST documented as of this encounter Care Teams Professor Of Musicology Relationship Specialty Start Date End Date Aiden Preston MD [address] [address] [email or web address] PCP - General 06/04/1803/24/19 Fabienne Jade DO [address] [place] [address] [email or web address] PCP - General Family Medicine 03/25/19 07/26/20 Rosemarie Biggs MD [address] [place] [phone] [email or web address] PCP - General Family Medicine 07/27/20 07/18/21 Aiden Preston MD [address] [place] [phone] [email or web address] PCP - General Internal Medicine 07/19/21 01/03/24 Kim Mcmullen NP [address] [place] [address] PCP - General Nurse Practitioner 01/04/24 documented as of this encounter Additional Source Comments The information contained in this document represents components of the legal health record. It is not the complete legal health record.[facility]
--- OUTSIDE RECORDS SUMMARY | 2025-02-23 09:57 | XMS_ITS | Encounter Summary ---
Author Organization [employer] Address [address] [place] [address] Care Team Providers Care Print Developer Name Role Phone Tami ArmendarizP Primary Care Provider [phone] Kim Mcmullen NP Primary Care Provider [phone] Reason for Visit * Reason Onset Date Comments Appointment Request 02/09/2023 Encounter Details Date Type Department Care Team ([facility] st Contact Info) Description 02/09/2023 Telephone [facility] MEDICINE [address] [place], [place] [phone] Tami Armendariz FNP [address] [place], [place] [phone] Appointment Request Social History Tobacco Use Types [...] pt is on a recall for February, consumer loan underwriter attempted schedule,no availability at the moment. documented in this encounter Plan of Treatment Upcoming Encounters Date Type Department Care Team (Late st Contact Info) Description 04/11/2025 1:45 PM EST Office Visit [facility] MEDICINE [address] [place] [address] Kim Mcmullen NP 230 [place] [address] 05/09/2025 11:00 AM EST Office Visit [facility] Dental [address] [place] [address] Tita Owens LLD [address] [place] [address] documented as of this encounter Visit Diagnoses Not on filedocumented in this encounter Additional Health Concerns Assessment Noted Time PHQ-9 Depression Total Score: 0 12/18/19 23 2:24 PM EDT documented as of this encounter Care Teams Print Developer Relationship Specialty Start Date End Date Tami Armendariz FNP [address] [place] [address] PCP - General Family Medicine 12/11/22 10/18/23 Kim Mcmullen NP 230 [facility] [place] [address] PCP - General Family Medicine 10/19/23 documented as of this encounter
--- OUTSIDE RECORDS SUMMARY | 2025-02-23 09:57 | XMS_ITS | Encounter Summary ---
Author Organization [facility] Address [address] [place] [address] [place] [phone] Phone Care Team Providers Care Interactive Media Specialist Name Role Phone Aiden Preston MD Primary Care Provider [phone] Kim Mcmullen NP Primary Care Provider [phone] Encounter Details Date Type Department Care Team (Latest Contact Info) Description 09/11/2021 Transcribe Orders Virtual Department [address] [place] [address] Joy Hughes MD [address] [place] [address], [address] [place] [address] [email or web address] Sensorineural hearing loss (SNHL), unspecified [...] high school, GED, job training, learning the Guyanese language, technical skills, or developing parenting skills)? [...] Upcoming Encounters Date Type Department Care Team ([facility] st Contact Info) Description 04/25/2025 1:45 PM EST Office Visit [facility] [address] [place] [address] Unknown, Unknown, Laura Mcgregor PA-C [address] [place] [address] [email or web address] documented as of this encounter Visit Diagnoses Diagnosis Sensorineural hearing loss (SNHL), unspecified laterality- Primary Tinnitus of both ears Unspecified tinnitus documented in this encounter Additional Health Concerns Assessment Noted Time PHQ-2 Depression Total Score: 1 11/28/19 21 8:59 AM EDT documented as of this encounter Care Teams Interactive Media Specialist Relationship Specialty Start Date End Date Aiden Preston MD [address] [place] [phone] [email or web address] PCP - General Internal Medicine 07/19/21 01/03/24 Kim Mcmullen NP [address] [place] [address] PCP - General Nurse Practitioner 01/04/24 documented as of this encounter Additional Source Comments The information contained in this document represents components of the legal health record. It is not the complete legal health record.[facility]
--- OUTSIDE RECORDS SUMMARY | 2025-02-23 09:57 | XMS_ITS | Encounter Summary ---
Author Organization [employer] Address [address] [place] [address] Care Team Providers Care Middle School Football Coach Name Role Phone Tami Armendariz Primary Care Provider [phone] Kim Mcmullen NP Primary Care Provider [phone] Reason for Visit * Reason Onset Date Comments Results 09/22/2023 Encounter Details Date Type Department Care Team ([facility] st Contact Info) Description 09/22/2023 Telephone [facility] MEDICINE 230 [place], [place] [phone] Tami Armendariz FNP 230 [place], [place] [phone] Results Social History Tobacco Use Types Packs/Day [...] if PCP wants to send referral for deputy manager for above concerns. Please review and advise. [...] results: Ultrasound Date when done: 08/30 Facility: [facility] documented in this encounter Plan of Treatment Upcoming Encounters Date Type Department Care Team (Late st Contact Info) Description 04/11/2025 1:45 PM EST Office Visit [facility] MEDICINE 230 [place] [address] Kim Mcmullen, MIKHAIL [address] [place] [address] 05/09/2025 11:00 AM EST Office Visit [facility] Dental [address] [place] [address] Tita Owens LLD 9 [place] [address] documented as of this encounter Visit Diagnoses Not on filedocumented in this encounter Additional Health Concerns Assessment Noted Time PHQ-9 Depression Total Score: 0 12/18/19 23 2:24 PM EDT documented as of this encounter Care Teams Middle School Football Coach Relationship Specialty Start Date End Date Tami Armendariz FNP [address] [place] [phone] PCP - General Family Medicine 12/11/22 10/18/23 Kim Mcmullen NP [address] [place] [address] PCP - General Family Medicine 10/19/23 documented as of this encounter
--- OUTSIDE RECORDS SUMMARY | 2025-02-23 09:57 | XMS_ITS | Encounter Summary ---
Author Organization [employer] Address [address] [place] [address] Care Team Providers Care Forepart Reducer Name Role Phone Tami Armendariz Primary Care Provider [phone] Kim Mcmullen NP Primary Care Provider [phone] Reason for Visit * Reason Onset Date Comments Referral 04/21/2023 Encounter Details Date Type Department Care Team ([facility] st Contact Info) Description 04/21/[address] [facility] MEDICINE [address] [place], [place] [phone] Tami Armendariz FNP [address] [place], [place] [phone] Referral Social History Tobacco Use Types Packs/Day [...] Miscellaneous Notes * Telephone Encounter - Nicko Sextno - 04/21/2023 11:04 AM EST Tc from [facility] [employer] calling to speak with the [place] for the PCP to obtain aInsurance referral typewriter operator automatic did attempt to transfer to direct line but was advised by the insurance claim auditor needs to get referral by the [place] documented in this encounter Plan of Treatment Upcoming Encounters Date Type Department Care Team (Late st Contact Info) Description 04/11/2025 1:45 PM EST Office Visit [facility] MEDICINE [address] [place] [address] Kim Mcmullen NP [address] [place] [address] 05/09/2025 11:00 AM EST Office Visit [facility] Dental [address] [place] [address] Tita Owens LLD 9 [place] [address] documented as of this encounter Visit Diagnoses Not on filedocumented in this encounter Additional Health Concerns Assessment Noted Time PHQ-9 Depression Total Score: 0 12/18/19 23 2:24 PM EDT documented as of this encounter Care Teams Forepart Reducer Relationship Specialty Start Date End Date Tami Armendariz FNP [address] [place] [address] PCP - General Family Medicine 12/11/22 10/18/23 Kim Mcmullen NP [address] [place] [address] PCP - General Family Medicine 10/19/23 documented as of this encounter
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
== END 2025-02-23 09:58 | disposition home or self-care (01) ==
LOC: HO.HCS 09:07
PROVIDERS: PCP Nurse Practitioner Family; Visit Provider Nurse Practitioner Family
DX: R42 Dizziness and giddiness (principal); R94.31 Abnormal electrocardiogram [ECG] [EKG]
CPT/HCPCS: 99213; G2211

== ENCOUNTER → 2025-02-23 09:06 | Outpatient (BNVA) | payer OTHER, SELFPAY | PROVIDERS: PCP Nurse Practitioner Family; Visit Provider Nurse Practitioner Family | DX: R42 Dizziness and giddiness (principal); R94.31 Abnormal electrocardiogram [ECG] [EKG]; R53.83 Other fatigue; R00.2 Palpitations | CPT/HCPCS: 99212 ==